=== PATIENT | male | born 1940 | race Caucasian/White ===

== ENCOUNTER 2017-07-19 06:52 | Outpatient (RCR) | payer SELFPAY | END 2017-08-17 23:59 | LOC: PR 06:52 | DX: Z00.00 Encounter for general adult medical examination without abnormal findings (principal) ==

== ENCOUNTER 2017-09-07 17:20 | Inpatient (IN) | payer MEDICARE, OTHER, SELFPAY ==
[2017-09-07] VITALS (13 sets, daily range): BP systolic 106–156; BP diastolic 64–84; PULSE 97–123; RESP 12–36; TEMP 36.5–37.1; O2SAT 71–98; BMI 19.6; BMI 19.7
--- NOTE | 2017-09-07 17:35 | EKG12_ITS ---
Test Reason : Blood Pressure : / mmHG Vent. Rate : 114 BPM Atrial Rate : 114 BPM P-R Int : 132 ms QRS Dur : 076 ms QT Int : 306 ms P-R-T Axes : 087 -51 068 degrees QTc Int : 421 ms Sinus tachycardia Left axis deviation Low voltage QRS (LIMB LEADS) Abnormal ECG Confirmed by TIKA THORNTON, MARY ANN ([id number]), editor index ALEJO CERVANTES ([id number]) on 09/09/2017 1:21:41 PM Referred By: Confirmed By:MARY ANN VILLELA MD
--- NOTE | 2017-09-07 17:50 | RAD_ITS ---
XR Chest 1 View INDICATION: DYSPNEA, SHORTNESS OF BREATH COMPARISON: October 26, 2012 TECHNIQUE: Frontal view of the chest FINDINGS: Lungs are hyperinflated with coarsened interstitial markings, compatible with COPD. No evidence of focal airspace consolidation or pleural effusion. Heart size is normal. RAD/Chest 1 View (Portable) IMPRESSION: COPD with air-trapping. No new infiltrate. at 1819 Reported and signed by: Bonnie Vincent MD Electronically Signed: Bonnie Vincent MD at 17:18 EST Tel , Service support ,
[2017-09-07 17:54] LABS: Absolute Lymphocyte Count 1.57 X10^3/ul (0.83-4.51); Absolute Neutrophil Count 10.5 X10^3/uL (2.0-7.7); Basophil# 0.04 X10^3/uL; Basophil% 0.3 % (0-1); Eosinophil# 0.15 X10^3/uL; Eosinophils% 1.1 % (0-5); Hematocrit 44.9 % (40-54); Hemoglobin 14.4 g/dl (13.0-16.5); Lymphocyte # 1.57 X10^3/ul (4.0); Lymphocyte % 11.9 % (19-41); Mean Corp Hgb Conc 32.1 g/gl (32-36); Mean Corpuscular Hgb 29.4 pg (27.0-32.0); Mean Corpuscular Volume 91.6 fL (80-94); Mean Platelet Vol. 9.2 fl (6.2-12.0); Monocyte# 0.86 X10^3/uL; Monocyte% 6.5 % (0-10); Neutrophil # 10.52 X10^3/uL (2.7-7.7); Neutrophil % 79.8 % (47-70); Platelet Count 193 K/mm3 (150-450); RBC Distribution Width CV 13.3 % (11.6-14.6); White Blood Count 13.2 K/mm3 (4.4-11.0)
[2017-09-07] MEDS: Albuterol 2.5 MG/3 ML VIAL.NEB. INHALATION ×3 (17:54)
[2017-09-07] MEDS: Ipratropium/Albuterol Sulfate 3 ML AMPUL.NEB INHALATION ×3 (17:54→23:15)
[2017-09-07 17:57] LABS: POSITIVE COUNT NO; POSITIVE DIFFERENTIAL NO; POSITIVE MORPHOLOGY NO
[2017-09-07] MEDS: MethylPREDNISolone 125 MG/2 ML Vial IV (18:00)
[2017-09-07 18:09] LABS: Anion Gap 8 (5-15); BUN 15 mg/dL (7-18); BUN/Creat Ratio 13.6 RATIO (10-20); Calcium,Total 8.9 mg/dL (8.5-10.1); Chloride 96 mmol/L (98-107); EST Glomerular Filtration Rate 69 mL/min (>60); Est Glom Filt Rate - Afr Amer 83 mL/min (>60); Estimated Creatinine Clearance 48.83 ml/min; Glucose 134 mg/dL (74-106); Sodium Level 135 mmol/L (136-145)
[2017-09-07 18:28] LABS: BNP,B-Type NATRIURETIC PEPTIDE 42.8 pg/mL (0-100)
--- NOTE | 2017-09-07 18:46 | ED.DCSUM_ITS ---
- ER Visit Summary Date of Service: 09/07/17 Chief Complaint: [Shortness of breath] History of Present Illness: The patient is a 77 M [presents to the emergency department with complaint of shortness of breath started relatively suddenly today. Patient has been having issues with his breathing over the course of the last several months however. Patient has been on several rounds of antibiotics and steroids as well. Patient has a history of COPD. Patient normally wears 3-4 L of O2 at home at all times. Patient has had a slight cough that at times is been productive with some yellow white type phlegm. Patient denies any fevers. Patient denies any chest pain. Patient denies recent travel or surgery.] Physical Examination: [HEENT-PERRLA, EOMI. Cranial nerves II through XII grossly intact. TMs clear. Mucous membranes moist. No adenopathy. Cardiovascular-regular rate and rhythm without murmur or ectopy Lungs-breath sounds bilaterally. Expiratory wheezes bilaterally. There is tachypnea with conversational dyspnea and some accessory muscle use noted. Abdomen-normoactive bowel sounds, soft, nontender, no rebound or rigidity, no peritoneal signs. Extremities-intact ?4, normal range of motion, normal pulses, atraumatic] Test Results: [EKG obtained showed a sinus tachycardia with a ventricular rate of 114 bpm. CBC with differential showed a white count of 13.2, hemoglobin 14, hematocrit 45, platelets 193. Chemistries were unremarkable. BNP was 43. Troponin was less than 0.02. Chest x-ray showed COPD without evidence of infiltrate.] Emergency Department Course and Treatment: [Patient was given DuoNeb aerosol followed by albuterol aerosols. Patient was started on Solu-Medrol 125 mg IV. Patient was started on Levaquin IV.] Patient's breathing improved after treatments however he continues to wheeze and continues to feel dyspneic at rest. Treatment Plan: [Admit for IV steroids, pulmonary toiletry, antibiotics] Disposition: [Admit] Impression: [Acute COPD exacerbation] This note was generated with [employer] dictation software. It may contain incorrect words, spelling, and punctuation that were not noted in review of the chart prior to signing ED Disposition - Plan for ED Patient: Chief Complaint: Shortness of Breath Referrals: Torrey Davis MD [Primary Care Provider] -
--- NOTE | 2017-09-07 19:20 | HP.PCM_ITS ---
Problem List (1) COPD exacerbation Status: Acute (2) BPH (benign prostatic hyperplasia) Status: Chronic Qualifiers: Lower urinary tract symptom detail: unspecified (3) Acute and chronic respiratory failure Status: Acute Qualifiers: Respiratory failure complication: hypoxia Qualified Code(s): J96.21 - Acute and chronic respiratory failure with hypoxia History of Present Illness Date of Admission: 09/07/17 Chief Complaint: Shortness of breath on going for months, worse today The patient is a 77 year old M with PMHx of chronic respiratory failure secondary to COPD, on 2.5-3.5 Litres of oxygen at home, anxiety disorder, BPH, who comes in with complaints of shortness of breath ongoing since June 2017. 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 He has been treated for antibiotics twice in the past 2 months. Last completed antibiotics 2 weeks ago. Patient woke up today feeling very short of breath, he went to the coach professional [employer] in the [place] in [place], and was evaluated and told to go to the ED. He complains of shortness of breath with exertion but denied any chest pain or dizziness or palpitation. He admits to runny nose and sore throat but denied any sick contacts. He had his flu shot this year. In the ED, his temperature 98.7, heart rate was 121, blood pressure 142/79, respiratory rate was 28, patient was saturating 71% on 4 L of oxygen. His labs showed WBC count of 13.2, Hb 14.4, platelets 193, sodium 135, potassium 4.0, chloride 96, bicarbonate 31, BUN 15, creatinine 1.1 troponin ?1 was negative. EKG shows normal sinus rhythm no acute ST-T changes. Past Medical History Past Medical History (Chronic Problems): Chronic Problems BPH (benign prostatic hyperplasia) (Chronic) Spontaneous pneumothorax (Chronic) COLD (chronic obstructive lung disease) (Chronic) Allergies atorvastatin [From Lipitor] Allergy (Verified 09/07/17 17:34) Other indomethacin [From Indocin] Allergy (Verified 09/07/17 17:34) Other primidone Allergy (Verified 09/07/17 17:34) Other sertraline [From Zoloft] Allergy (Verified 09/07/17 17:34) Other Home Medications: Ambulatory Orders Medication Instructions Recorded Albuterol Aerosols [Ventolin 2.5 mg INHALATION Q6H PRN PRN 09/07/17 Aerosols] Albuterol Inhaler [Ventolin Hfa 1 - 2 puff INHALATION Q6H PRN PRN 09/07/17 (SP)] Budesonide/Formoterol 160/4.5 2 puff INHALATION BID 09/07/17 [Symbicort 160/4.5 Mcg Inhaler (SP)] Cetirizine HCl [Allergy Relief] 10 mg PO DAILY 09/07/17 Ergocalciferol [Vitamin D] 50,000 unit PO QMONTH 09/07/17 Folic Acid 1 mg PO DAILY@0800 09/07/17 Furosemide [Lasix] 20 mg PO DAILY 09/07/17 Hydrocortisone 2.5% Crm [Hytone] 1 applic TOPICAL TID PRN PRN 09/07/17 Lorazepam [Ativan] 0.5 mg PO DAILY PRN PRN 09/07/17 Lycopene 10 mg PO DAILY 09/07/17 Metronidazole 0.75% [Metrogel] 1 applic TOPICAL BID 09/07/17 Potassium Chloride 10 meq PO DAILY 09/07/17 Selenium 200 mcg PO DAILY 09/07/17 Tamsulosin HCl [Flomax] 0.4 mg PO DAILY 09/07/17 Tiotropium Jackson [Spiriva 18 MCG] 1 puff INHALATION DAILY 09/07/17 Surgical History: adenoidectomy, appendectomy, tonsillectomy Psychiatric History: Anxiety Lives: Alone Smoking Status: Former smoker Tobacco Use: Non-smoker Alcohol: None Drugs: None - *Family History Maternal History Items: Heart Disease Paternal History Items: Heart Disease Review of Systems Constitutional: Reports: Chills, Weakness. Denies: Fever, Malaise, Weight Change Eyes: Denies: Blurred vision, Cataracts, Conjunctivae Inflammation, Pain, Redness HEENT: Denies: Difficulty Hearing, Difficulty Swallowing, Head Aches, Hearing Changes, Sinus Congestion, Sinus Drainage Cardiovascular: Denies: Chest Pain, Claudication, Edema, Heaviness, Light Headedness, Orthopnea, Palpitations, Paroxysmal Noc. Dyspnea Respiratory: Reports: Shortness of Breath, Shortness of breath at rest, Shortness of breath upon exertion. Denies: Cough, Sputum production Gastrointestinal: Denies: Abdominal Pain, Constipation, Hematemesis, Nausea, Vomiting Genitourinary: Denies: Dysuria, Frequency, Incontinence Musculoskeletal: Denies: Joint Pain, Joint stiffness, Joint swelling, Joint Tenderness Skin: Denies: Dryness, Jaundice, Rash, Wounds Neurological: Denies: Balance problems, Difficulty swallowing, Focal weakness, Numbness, Tingling Psychiatric: Denies: Anxiety, Depression, Homicidal Ideations, Suicidal Ideations Hematologic/ Lymphatic: Denies: Easy Bruising, Easy Bleeding VTE Information - Inpt Only VTE Present on Admission: No VTE Pharm Prophylaxis ordered?: Yes Patient Problems: Active and Suspected Problems COPD exacerbation (Acute) Acute and chronic respiratory failure (Acute) - Physical Exam General: Alert, Oriented x3, Cooperative, - - comfortable with 4L oxygen HEENT: Atraumatic, PERRLA, EOMI, Normocephalic Oral: Moist Mucosa Neck: Supple Lungs: Normal air movement, Diminished - in all lung anguiano, distant heart sounds., Wheezes Cardiovascular: Regular rate, Regular Rhythm, Normal S1, Normal S2, No murmurs Abdomen: Bowel Sounds Present, Soft, Non Tender, Non-Distended, No Hepato- splenomegaly Extremities: No edema Skin: No rashes Musculoskeletal: No Tenderness to Palpation of Joints or Extremities Neurological: Cranial nerves II-XII grossly intact, Neuro grossly intact Psych/Mental Status: Normal Affect, Appropriate Vital Signs Temp Pulse Resp BP Pulse Ox 98.7 F 97 24 H 142/79 H 94 09/07/17 17:30 09/07/17 17:54 09/07/17 17:54 09/07/17 17:34 09/07/17 17:34 Oxygen Flow Rate 4 Oxygen Delivery Method Nasal Cannula Weight: 63.4 kg Body Mass Index (BMI) 20.0 Laboratory Tests Past 24 Hrs 09/07/17 09/07/17 09/07/17 17:35 17:35 17:35 WBC 13.2 H RBC 4.90 Hgb 14.4 Hct 44.9 MCV 91.6 MCH 29.4 MCHC 32.1 RDW 13.3 RDW Differential 44.0 H Plt Count 193 MPV 9.2 Immature Gran % (Auto) 0.400 Neut % (Auto) 79.8 H Lymph % (Auto) 11.9 L [place] % (Auto) 6.5 Eos % (Auto) 1.1 Baso % (Auto) 0.3 Absolute Neuts (auto) 10.5 H Absolute Lymphs (auto) 1.57 Total Counted Not Reportable Sodium 135 L Potassium 4.0 Chloride 96 L Carbon Dioxide 31.0 Anion Gap 8 BUN 15 Creatinine 1.10 Estim Creat Clear Calc 48.83 Est GFR (MDRD) Af Amer 83 Est GFR (MDRD) Non-Af 69 BUN/Creatinine Ratio 13.6 Glucose 134 H Calcium 8.9 Troponin I < 0.02 B-Natriuretic Peptide 42.8 Assessment/Plan Active and Suspected Problems COPD exacerbation (Acute) Acute and chronic respiratory failure (Acute) 77 year old M with PMHx of chronic respiratory failure secondary to COPD, on 2.5 -3.5 Litres of oxygen at home, anxiety disorder, BPH, who comes in with complaints of shortness of breath ongoing since June 2017. Patient is an [employer] and [facility] [place] 1. Acute on chronic respiratory failure secondary to COPD exacerbation, patient is usually on 2.5-3.5 L of oxygen, vitals show tachycardia, x-ray showed no acute infiltrate. Plan: Admit to [facility], continue oxygen therapy, albuterol, ipratropium breathing treatments, IV Solu-Medrol, continue to wean off oxygen, IV Levaquin, labs in am. Respiratory panel and influenza screen stat. 2. Acute COPD exacerbation patient with chronic COPD and respiratory failure, management as above in #1 3. Leucocytosis, likely reactive, would need to repeat it in a.m. 4. BPH, on Flomax 5. Chronic anxiety, continue on home Ativan as needed 6. Chronic hyponatremia, follow-up on labs in am 7. DVT PPX with Lovenox SC Code Visit Inpatient E&M: 96382 Init Hosp L3
--- NOTE | 2017-09-07 19:43 | NURSING ---
[facility]ED [facility] TO [facility] WAITING FOR THE COORDINATOR TO CALL BACK
--- NOTE | 2017-09-07 19:49 | NURSING ---
[facility] CALLED BACK VER[facility] PATIENT [facility] [employer] MEDICARE AND IS ABLE TO STAY AT [facility]
--- NOTE | 2017-09-07 20:28 | NURSING ---
CPS called for breathing tmt at pt request.
--- NOTE | 2017-09-07 21:08 | NURSING ---
Admission process delayed at this time d/t pt's breathing issues. Dr. Medina was called since pt triggered a positive sepsis screen. She stated pt is not septic but his vital signs are reflective of his COPD. CPS currently in pt's room administering breathing tmt.
[2017-09-07 21:41] LABS: Allen Test POS; Base Excess 7 mmol/L (-2 to +2); Blood Gas Specimen Type ART; O2 Delivery Device Nasal Can; PO2 85 mmHG (75-100); SITE L Radial; SO2 94 % (95-99); Time Given 2124; Total Carbon Dioxide 36 mmol/L; pCO2 72.2 mmHg (35-45); pH 7.28 (7.35-7.45)
[2017-09-07] MEDS: 0.9% Normal Saline 1,000 ML 75 ML IV (21:50)
--- NOTE | 2017-09-07 21:50 | NURSING ---
Per Francy, Nursing Director Of Digital Marketing, she spoke with Dr. Medina and after some discussion it was determined that pt will remain on MS3 on bipap on telemetry and will not be transferred to PCU. Order to transfer was stopped.
[2017-09-07] MEDS: guaiFENesin 1,200 MG Tablet 1200 MG PO (22:57)
--- NOTE | 2017-09-07 23:08 | NURSING ---
Pt not tolerating Bi-pap. Feels claustrophobic and hot under the mask and started complaining of chest pain. Taken off bi-pap and replaced with 02 via NC at 4L. maintaining 02 sats at 96% and RR 26-28RPM. called respiratory and an EKG performed. charge nurse and respiratory have discussed with Dr Medina who will come and review patient. Order for ativan obtained and will be given once acknowledged. breathing treatment in progress at time of report and awaiting Dr Medina review.
[2017-09-07] MEDS: LORazepam 2 MG/ML Syringe 1 MG IV (23:20)
[2017-09-08] VITALS (18 sets, daily range): BP systolic 98–121; BP diastolic 67–75; PULSE 75–105; RESP 18–36; TEMP 36.7–37; O2SAT 95–100
--- NOTE | 2017-09-08 00:10 | CPS ---
Pt unable to tolerate bipap, pt very anxious and feels claustrophobic. Pt on 4L NC.
[2017-09-08] MEDS: Ipratropium/Albuterol Sulfate 3 ML AMPUL.NEB INHALATION ×6 (02:32→22:56)
--- NOTE | 2017-09-08 02:32 | PCM.PN.BLA ---
Progress Note Event note: Called earlier to see patient who was feeling very SOB and working very hard to breath. He was saturating in the low 90s. Patient appeared very anxious, says he takes 0.5mg Ativan at home and has taken 4 doses already. ABG stat showed pH 7.28, pCO2 72.2, PO2 94%, patient was started on Bipap 12/5, but he complained of feeling claustrophobic and became more anxious. Physical exam showed generalised wheezes. He was given 1mg IV Ativan and put on 4L nasal canula oxygen and kept on continuous pulse oximetry. Patient was reassured. Repeated visits showed stable oxygenation with SPO2 in 98-100%. Will continue on breathing treatments, IV steroids. Had a discussion with the patient with reference to advanced directives, he says his spouse is his HCPOA, I exaplained the different types of code status and patient did not wish to be intubated. Code status made DNRCCA/DNI. Total time spent managing this patient tonight 1 hour 5 mins with the most part spent at the bedside.
--- NOTE | 2017-09-08 02:44 | PN_ITS ---
Progress Note Event note: Called earlier to see patient who was feeling very SOB and working very hard to breath. He was saturating in the low 90s. Patient appeared very anxious, says he takes 0.5mg Ativan at home and has taken 4 doses already. ABG stat showed pH 7.28, pCO2 72.2, PO2 94%, patient was started on Bipap 12/5, but he complained of feeling claustrophobic and became more anxious. Physical exam showed generalised wheezes. He was given 1mg IV Ativan and put on 4L nasal canula oxygen and kept on continuous pulse oximetry. Patient was reassured. Repeated visits showed stable oxygenation with SPO2 in 98 -100%. Will continue on breathing treatments, IV steroids. Had a discussion with the patient with reference to advanced directives, he says his spouse is his HCPOA, I exaplained the different types of code status and patient did not wish to be intubated. Code status made DNRCCA/DNI. Total time spent managing this patient tonight 1 hour 5 mins with the most part spent at the bedside.
[2017-09-08] MEDS: 0.9% NaCl Peripheral Flush Adult/Peds IV ×2 (06:05→14:46)
[2017-09-08] MEDS: Enoxaparin 40 MG/0.4 ML Syringe SC (06:06)
[2017-09-08 06:35] LABS: Anion Gap 8 (5-15); BUN 17 mg/dL (7-18); BUN/Creat Ratio 15.5 RATIO (10-20); Calcium,Total 8.4 mg/dL (8.5-10.1); Chloride 96 mmol/L (98-107); EST Glomerular Filtration Rate 69 mL/min (>60); Est Glom Filt Rate - Afr Amer 83 mL/min (>60); Estimated Creatinine Clearance 48.02 ml/min; Glucose 172 mg/dL (74-106); Potassium 4.5 mmol/L (3.5-5.1); Sodium Level 132 mmol/L (136-145)
[2017-09-08 06:39] LABS: Absolute Lymphocyte Count 0.29 X10^3/ul (0.83-4.51); Absolute Neutrophil Count 9.4 X10^3/uL (2.0-7.7); Hematocrit 38.9 % (40-54); Hemoglobin 12.4 g/dl (13.0-16.5); Lymphocyte # 0.29 X10^3/ul (4.0); Mean Corp Hgb Conc 31.9 g/gl (32-36); Mean Corpuscular Hgb 28.8 pg (27.0-32.0); Mean Corpuscular Volume 90.3 fL (80-94); Mean Platelet Vol. 9.2 fl (6.2-12.0); Monocyte# 0.07 X10^3/uL; Monocyte% 0.7 % (0-10); Neutrophil # 9.35 X10^3/uL (2.7-7.7); Neutrophil % 96.2 % (47-70); Platelet Count 128 K/mm3 (150-450); RBC Distribution Width CV 13.2 % (11.6-14.6); Red Blood Count 4.31 M/mm3 (4.6-6.2); White Blood Count 9.7 K/mm3 (4.4-11.0)
[2017-09-08 06:40] LABS: Differential Indicated SCAN CRITERIA MET; POSITIVE COUNT NO; POSITIVE DIFFERENTIAL YES; POSITIVE MORPHOLOGY NO
[2017-09-08 06:55] LABS: Differential Comment SCANNED
[2017-09-08] MEDS: 0.9% Normal Saline 1,000 ML 75 ML IV ×2 (08:17→21:30)
[2017-09-08] MEDS: LORazepam 0.5 MG Tablet PO ×3 (08:17→21:30)
[2017-09-08] MEDS: Folic Acid 1 MG Tablet PO (08:17)
[2017-09-08] MEDS: guaiFENesin 1,200 MG Tablet 1200 MG PO ×2 (09:50→21:26)
[2017-09-08] MEDS: Furosemide 20 MG Tablet PO (09:50)
[2017-09-08] MEDS: Loratadine 10 MG Tablet PO (09:50)
--- NOTE | 2017-09-08 11:19 | CASEMGMT ---
RN MAYI assessment complete. See attached link for full assessment. LACE Strata 3. Diagnosis: COPD Exacerbation. Transition Planning: Patient reports he feels he needs increase in services at home. Per [facility] SW, Wilson, they are unable to provide. Patient thinks he may need to go to a SNF for rehab. AMITA SEE suggested PVT duty nursing with skilled home care and patient reports he cannot afford it. RN CM notified SW of possible need for placement. AMITA SEE will continue to follow for appropriate transition planning and care coordination. Disposition Plan: TBD
--- NOTE | 2017-09-08 11:41 | CASEMGMT ---
RN CM met with patient to complete RN CM assessment. During assessment, patient asked that RN CM contact his ministers to request a visit. Patient requested this RN CM call Swetha Hull and Wilson Burns. RN CM called both and left messages with return calls re: patient request. RN CM also paged [facility] to request a visit. ULICES CurryN, RN-BC, CCM
--- NOTE | 2017-09-08 11:54 | CASEMGMT ---
During RN CM assessment, patient noted he is worried about going home and being alone after discharge. He does [facility] and requested I call to see if the [facility] would provide around the clock care. Patient states he cannot afford private duty on his own. RN MAYI called the [facility] and spoke with social media strategist, Wilson. Per Wilson, patient receives 12 hours of aide services at home, and they would not be able to provide 24 hour care. RN MAYI inquired about service connection, and patient is not service connected so would not be eligible to go to SNF under [facility] benefit. AMITA SEE will update patient and notify social work. Linda Cody BSN, RN-BC, CCM
--- NOTE | 2017-09-08 14:40 | PN_ITS ---
Patient Problems: Active and Suspected Problems COPD exacerbation (Acute) Acute and chronic respiratory failure (Acute) Subjective: CC: Shortness of breath and severe anxiety he reports improved breathing, he has significant anxiety and he is adamant about getting his Ativan scheduled. he reports no chest pain, fever or chills. Vitals/I&O's: Vital Signs Temp Pulse Resp BP Pulse Ox 98.2 F 75 24 H 121/75 H 97 09/08/17 14:05 09/08/17 14:05 09/08/17 14:05 09/08/17 14:05 09/08/17 14:05 Oxygen Flow Rate 4.5 Oxygen Delivery Method Nasal Cannula Weight: 62.3 kg Body Mass Index (BMI) 19.6 Intake and Output for Last 24 Hours 09/06/17 09/07/17 09/08/17 23:59 23:59 23:59 Intake Total 2532 / 2532 Output Total 450 / 450 Balance 2081 / 2081 General: Alert, Oriented x3 Oral: Moist Mucosa Neck: Supple, No JVD Cardiovascular: - Abdomen: Bowel Sounds Present, Soft, Non Tender, Non-Distended Extremities: No edema Neurological: Cranial nerves II-XII grossly intact, Neuro grossly intact, Motor Exam 5/5 strength throughout Microbiology Past 72 Hours 09/07/17 21:00 Mucosa - Nasopharyngeal Respiratory Panel (PCR) - Final 09/07/17 21:00 Mucosa - Nasopharyngeal Influenza Types A,B Direct FA (BRAN) - Final Laboratory Results 09/07/17 21:31: Specimen Type ART, Sample Site L Radial, pH 7.28 L, Bicarbonate Actual 34.0 H, POC Total CO2 36, Base Excess 7 H, O2 Saturation 94 L, ABG pCO2 72.2 H*, ABG pO2 85, Farzad Test POS, O2 Delivery Device Nasal Can, Liter Flow 4.0, Blood Gas Notified Whom [facility] , Blood Gas Notified Time 212309/08/17 06:04: Sodium 132 L, Potassium 4.5, Chloride 96 L, Carbon Dioxide 28.0 , Anion Gap 8, BUN 17, Creatinine 1.10, Estim Creat Clear Calc 48.02, Est GFR ( MDRD) Af Amer 83, Est GFR (MDRD) Non-Af 69, BUN/Creatinine Ratio 15.5, Glucose 172 H, Calcium 8.4 L 09/08/17 06:04: WBC 9.7, RBC 4.31 L, Hgb 12.4 L, Hct 38.9 L, MCV 90.3, MCH 28.8 , MCHC 31.9 L, RDW 13.2, RDW Differential 44.0 H, Plt Count 128 L, MPV 9.2, Immature Gran % (Auto) 0.100, Neut % (Auto) 96.2 H, Lymph % (Auto) 3.0 L, [place] % (Auto) 0.7, Eos % (Auto) 0.0, Baso % (Auto) 0.0, Absolute Neuts (auto) 9.4 H, Absolute Lymphs (auto) 0.29 L, Total Counted Not Reportable, Differential Comment SCANNED Current Medications Acetaminophen (Tylenol) 650 mg PO Q6H PRN PRN PRN Reason: Mild Pain (1-3)/Temp > 100.7 F Albuterol Sulfate (Ventolin Aerosols) 2.5 mg INHALATION Q2H PRN PRN PRN Reason: SHORTNESS OF BREATH Albuterol/Ipratropium (Duoneb) 3 ml INHALATION Q4H.RT [facility] Last Admin: 09/08/17 10:55 Dose: 3 ml Bisacodyl (Dulcolax) 5 mg PO DAILY PRN PRN PRN Reason: Constipation Enoxaparin Sodium (Lovenox) 40 mg SC DAILY@0600 [facility] Last Admin: 09/08/17 06:06 Dose: 40 mg Ergocalciferol (Vitamin D) 50,000 unit PO QMONTH [facility] Last Admin: 09/08/17 12:18 Dose: 50,000 unit Folic Acid (Folic Acid) 1 mg PO DAILY@0800 [facility] Last Admin: 09/08/17 08:17 Dose: 1 mg Furosemide (Lasix) 20 mg PO DAILY [facility] Last Admin: 09/08/17 09:50 Dose: 20 mg Guaifenesin (Mucinex) 1,200 mg PO BID [facility] Last Admin: 09/08/17 09:50 Dose: 1,200 mg Sodium Chloride () 1,000 mls @ 75 mls/hr IV .[id number] [facility] Last Admin: 09/08/17 08:17 Dose: 75 mls/hr Levofloxacin (Levaquin) 750 mg in 150 mls @ 100 mls/hr IV Q48 [facility] Loratadine (Claritin) 10 mg PO DAILY [facility] Last Admin: 09/08/17 09:50 Dose: 10 mg Lorazepam (Ativan) 0.5 mg PO TID PRN PRN PRN Reason: ANXIETY Magnesium Hydroxide (Milk Of Magnesia) 30 ml PO DAILY PRN PRN PRN Reason: Constipation Methylprednisolone (Solu-Medrol) 40 mg IV Q8 [facility] Last Admin: 09/08/17 06:06 Dose: 40 mg Nutritional Formula (Lactose Free) (Ensure Enlive) 120 ml PO 4X/DAY [facility] Last Admin: 09/08/17 10:27 Dose: 120 ml Ondansetron HCl (Zofran) 4 mg IV Q8H PRN PRN PRN Reason: Nausea Potassium Chloride (K-Dur) 10 meq PO DAILY [facility] Last Admin: 09/08/17 09:50 Dose: 10 meq Psyllium Hydrophilic Mucilloid (Metamucil) 1 packet PO DAILY PRN PRN PRN Reason: CONSTIPATION Sodium Chloride () 5 - 30 ml IV UD PRN PRN Reason: SALINE FLUSH Last Admin: 09/08/17 06:05 Dose: 10 ml Tamsulosin HCl (Flomax) 0.4 mg PO DAILY@1730 [facility] Assessment/Plan Active and Suspected Problems COPD exacerbation (Acute) Acute and chronic respiratory failure (Acute) 1. Acute on chronic respiratory failure secondary to COPD exacerbation; continue supplemental oxygen , wean as tolerated. 2. Acute COPD exacerbation with bronchitis; he is on bronchodilators , antibiotics and steroids. 3. Anxiety; we will continue on as needed Ativan 4. Chronic hyponatremia, follow-up on labs in am 5. leukocytosis; resolved. 6. Hyponatremia; continue with 0.9 normal saline and repeat BMP in a.m. 7. DVT prophylaxis with Lovenox. Code Visit Inpatient E&M: 64225 Subs Hosp L2
[2017-09-08] MEDS: Tamsulosin HCl 0.4 MG Capsule PO (18:09)
[2017-09-09] VITALS (14 sets, daily range): BP systolic 97–142; BP diastolic 60–73; PULSE 61–103; RESP 18–26; TEMP 36.7–37; O2SAT 94–97
[2017-09-09] MEDS: Ipratropium/Albuterol Sulfate 3 ML AMPUL.NEB INHALATION ×6 (03:07→22:46)
[2017-09-09] MEDS: Enoxaparin 40 MG/0.4 ML Syringe SC (06:18)
[2017-09-09] MEDS: 0.9% NaCl Peripheral Flush Adult/Peds IV ×2 (06:19→13:40)
[2017-09-09] MEDS: LORazepam 0.5 MG Tablet PO ×3 (06:19→22:02)
--- NOTE | 2017-09-09 08:03 | NURSING ---
Tele alarm going off, HR 140s, sats low 80s on oxygen. Found patient sitting on bsc, pt very anxious and sob. Nurse rubbed patient's back per request, pt continues to be anxious. Nurse obtained ativan per patient request, and stayed in room approximately 30 minutes until patient was able to calm himself down. Pt assisted back to bed.
[2017-09-09] MEDS: Loratadine 10 MG Tablet PO (08:48)
[2017-09-09] MEDS: Folic Acid 1 MG Tablet PO (08:48)
[2017-09-09] MEDS: Furosemide 20 MG Tablet PO (08:48)
[2017-09-09] MEDS: guaiFENesin 1,200 MG Tablet 1200 MG PO ×2 (08:48→22:02)
--- NOTE | 2017-09-09 09:35 | CASEMGMT ---
Social Work Note Reviewed pt's chart and per PT/OT evaluations they are recommending placement and pt is requesting. Face to face with pt who confirms that he does not feel his care can be managed at home at this time. Would like referrals made to TCU and [facility]. Pt inquires about Medicaid. States that he makes $1500/month and that his makes an additional $1000. Inform that we can always apply and submit, and pt requests that SW return to assist with application. Placed call to [facility] to inquire about bed availability and will await a return phone call. SW to continue to follow and assist with discharge planning. Denisa Ferrari, AUTO GLASS TECHNICIAN, INFORMATION TECHNOLOGY TEACHER
--- NOTE | 2017-09-09 09:51 | PCA ---
set pt up for care pt would like to wait until later today
[2017-09-09] MEDS: NYSTATIN 500,000 UNIT/5 ML UDC 500000 UNIT PO ×2 (10:22→13:40)
[2017-09-09] MEDS: 0.9% Normal Saline 1,000 ML 75 ML IV (10:23)
--- NOTE | 2017-09-09 10:59 | CASEMGMT ---
Social Work Note Call from [facility] confirming that she would have a bed available. Pre-cert initiated. Face to face with the pt and update that TCU has a bed and has submitted pre-cert. RT in to begin breathing treatment and pt requests that SW return afterwards to assist with completion of Medicaid application. Will return as time allows. SW to continue to follow and assist with discharge planning. Plan: TCU pending pre-cert. Denisa Ferrari, LETTUCE CUTTER, BLOW PIT OPERATOR
--- NOTE | 2017-09-09 15:57 | PCM.PN.HOSP ---
Patient Problems: Active and Suspected Problems COPD exacerbation (Acute) Acute and chronic respiratory failure (Acute) Subjective: CC: Shortness of breath and severe anxiety This is a 77 -year-old male with history of COPD and chronic respiratory failure on home 02 who presented with progressive shortness of breath, he has acute exacerbation of COPD. He is improving with IV steroids and bronchodilator therapy. Significant anxiety and is receiving Ativan. Vitals/I&O's: Vital Signs Temp Pulse Resp BP Pulse Ox 98.6 F 84 20 H 97/60 97 09/09/17 13:33 09/09/17 14:57 09/09/17 14:57 09/09/17 13:33 09/09/17 13:33 Oxygen Flow Rate 4 Oxygen Delivery Method Nasal Cannula Weight: 62.3 kg Body Mass Index (BMI) 19.6 Intake and Output for Last 24 Hours 09/07/17 09/08/17 09/09/17 23:59 23:59 23:59 Intake Total 3436 / 3436 2020 Output Total 725 / 725 1800 / 1800 Balance 2711 / 2711 221 / 221 General: Alert, Oriented x3 Neck: Supple, No JVD Lungs: Clear to auscultation Cardiovascular: Regular rate, Normal S1, No murmurs Abdomen: Bowel Sounds Present, Soft, Non Tender Neurological: Cranial nerves II-XII grossly intact, Motor Exam 5/5 strength throughout Psych/Mental Status: Normal Affect Microbiology Past 72 Hours 09/07/17 21:00 Mucosa - Nasopharyngeal Respiratory Panel (PCR) - Final 09/07/17 21:00 Mucosa - Nasopharyngeal Influenza Types A,B Direct FA (BRAN) - Final Current Medications Acetaminophen (Tylenol) 650 mg PO Q6H PRN PRN PRN Reason: Mild Pain (1-3)/Temp > 100.7 F Albuterol Sulfate (Ventolin Aerosols) 2.5 mg INHALATION Q2H PRN PRN PRN Reason: SHORTNESS OF BREATH Albuterol/Ipratropium (Duoneb) 3 ml INHALATION Q4H.RT [facility] Last Admin: 09/09/17 14:57 Dose: 3 ml Bisacodyl (Dulcolax) 5 mg PO DAILY PRN PRN PRN Reason: Constipation Enoxaparin Sodium (Lovenox) 40 mg SC DAILY@0600 [facility] Last Admin: 09/09/17 06:18 Dose: 40 mg Ergocalciferol (Vitamin D) 50,000 unit PO QMONTH [facility] Last Admin: 09/08/17 12:18 Dose: 50,000 unit Folic Acid (Folic Acid) 1 mg PO DAILY@0800 [facility] Last Admin: 09/09/17 08:48 Dose: 1 mg Furosemide (Lasix) 20 mg PO DAILY [facility] Last Admin: 09/09/17 08:48 Dose: 20 mg Guaifenesin (Mucinex) 1,200 mg PO BID [facility] Last Admin: 09/09/17 08:48 Dose: 1,200 mg Sodium Chloride () 1,000 mls @ 75 mls/hr IV .[id number] [facility] Last Admin: 09/09/17 10:23 Dose: 75 mls/hr Levofloxacin (Levaquin) 750 mg PO Q48@0600 [facility] Loratadine (Claritin) 10 mg PO DAILY [facility] Last Admin: 09/09/17 08:48 Dose: 10 mg Lorazepam (Ativan) 0.5 mg PO TID PRN PRN PRN Reason: ANXIETY Last Admin: 09/09/17 13:40 Dose: 0.5 mg Magnesium Hydroxide (Milk Of Magnesia) 30 ml PO DAILY PRN PRN PRN Reason: Constipation Methylprednisolone (Solu-Medrol) 40 mg IV Q8 [facility] Last Admin: 09/09/17 13:40 Dose: 40 mg Nutritional Formula (Lactose Free) (Ensure Enlive) 120 ml PO 4X/DAY [facility] Last Admin: 09/09/17 13:38 Dose: Not Given Nystatin (Nystatin) 500,000 unit PO 4X/DAY [facility] Last Admin: 09/09/17 13:40 Dose: 500,000 unit Ondansetron HCl (Zofran) 4 mg IV Q8H PRN PRN PRN Reason: Nausea Potassium Chloride (K-Dur) 10 meq PO DAILY [facility] Last Admin: 09/09/17 08:47 Dose: 10 meq Psyllium Hydrophilic Mucilloid (Metamucil) 1 packet PO DAILY PRN PRN PRN Reason: CONSTIPATION Sodium Chloride () 5 - 30 ml IV UD PRN PRN Reason: SALINE FLUSH Last Admin: 09/09/17 13:40 Dose: 10 ml Tamsulosin HCl (Flomax) 0.4 mg PO DAILY@1730 [facility] Last Admin: 09/08/17 18:09 Dose: 0.4 mg Assessment/Plan Active and Suspected Problems COPD exacerbation (Acute) Acute and chronic respiratory failure (Acute) 1. Acute on chronic respiratory failure secondary to COPD exacerbation; continue supplemental oxygen , wean as tolerated. 2. Acute COPD exacerbation with bronchitis; he is on bronchodilators ,antibiotics and IV steroids. 3. Anxiety; we will continue on as needed Ativan 4. Hyponatremia; continue with 0.9 normal saline and repeat BMP today. 5. leukocytosis; resolved. 6.DVT prophylaxis with Lovenox. Code Visit Inpatient E&M: 13975 Subs Hosp L2
--- NOTE | 2017-09-09 16:01 | PN_ITS ---
Patient Problems: Active and Suspected Problems COPD exacerbation (Acute) Acute and chronic respiratory failure (Acute) Subjective: CC: Shortness of breath and severe anxiety This is a 77 -year-old male with history of COPD and chronic respiratory failure on home 02 who presented with progressive shortness of breath, he has acute exacerbation of COPD. He is improving with IV steroids and bronchodilator therapy. Significant anxiety and is receiving Ativan. Vitals/I&O's: Vital Signs Temp Pulse Resp BP Pulse Ox 98.6 F 84 20 H 97/60 97 09/09/17 13:33 09/09/17 14:57 09/09/17 14:57 09/09/17 13:33 09/09/17 13:33 Oxygen Flow Rate 4 Oxygen Delivery Method Nasal Cannula Weight: 62.3 kg Body Mass Index (BMI) 19.6 Intake and Output for Last 24 Hours 09/07/17 09/08/17 09/09/17 23:59 23:59 23:59 Intake Total 3436 / 3436 2020 Output Total 725 / 725 1800 / 1800 Balance 2711 / 2711 221 / 221 General: Alert, Oriented x3 Neck: Supple, No JVD Lungs: Clear to auscultation Cardiovascular: Regular rate, Normal S1, No murmurs Abdomen: Bowel Sounds Present, Soft, Non Tender Neurological: Cranial nerves II-XII grossly intact, Motor Exam 5/5 strength throughout Psych/Mental Status: Normal Affect Microbiology Past 72 Hours 09/07/17 21:00 Mucosa - Nasopharyngeal Respiratory Panel (PCR) - Final 09/07/17 21:00 Mucosa - Nasopharyngeal Influenza Types A,B Direct FA (BRAN) - Final Current Medications Acetaminophen (Tylenol) 650 mg PO Q6H PRN PRN PRN Reason: Mild Pain (1-3)/Temp > 100.7 F Albuterol Sulfate (Ventolin Aerosols) 2.5 mg INHALATION Q2H PRN PRN PRN Reason: SHORTNESS OF BREATH Albuterol/Ipratropium (Duoneb) 3 ml INHALATION Q4H.RT [facility] Last Admin: 09/09/17 14:57 Dose: 3 ml Bisacodyl (Dulcolax) 5 mg PO DAILY PRN PRN PRN Reason: Constipation Enoxaparin Sodium (Lovenox) 40 mg SC DAILY@0600 [facility] Last Admin: 09/09/17 06:18 Dose: 40 mg Ergocalciferol (Vitamin D) 50,000 unit PO QMONTH [facility] Last Admin: 09/08/17 12:18 Dose: 50,000 unit Folic Acid (Folic Acid) 1 mg PO DAILY@0800 [facility] Last Admin: 09/09/17 08:48 Dose: 1 mg Furosemide (Lasix) 20 mg PO DAILY [facility] Last Admin: 09/09/17 08:48 Dose: 20 mg Guaifenesin (Mucinex) 1,200 mg PO BID [facility] Last Admin: 09/09/17 08:48 Dose: 1,200 mg Sodium Chloride () 1,000 mls @ 75 mls/hr IV .[id number] [facility] Last Admin: 09/09/17 10:23 Dose: 75 mls/hr Levofloxacin (Levaquin) 750 mg PO Q48@0600 [facility] Loratadine (Claritin) 10 mg PO DAILY [facility] Last Admin: 09/09/17 08:48 Dose: 10 mg Lorazepam (Ativan) 0.5 mg PO TID PRN PRN PRN Reason: ANXIETY Last Admin: 09/09/17 13:40 Dose: 0.5 mg Magnesium Hydroxide (Milk Of Magnesia) 30 ml PO DAILY PRN PRN PRN Reason: Constipation Methylprednisolone (Solu-Medrol) 40 mg IV Q8 [facility] Last Admin: 09/09/17 13:40 Dose: 40 mg Nutritional Formula (Lactose Free) (Ensure Enlive) 120 ml PO 4X/DAY [facility] Last Admin: 09/09/17 13:38 Dose: Not Given Nystatin (Nystatin) 500,000 unit PO 4X/DAY [facility] Last Admin: 09/09/17 13:40 Dose: 500,000 unit Ondansetron HCl (Zofran) 4 mg IV Q8H PRN PRN PRN Reason: Nausea Potassium Chloride (K-Dur) 10 meq PO DAILY [facility] Last Admin: 09/09/17 08:47 Dose: 10 meq Psyllium Hydrophilic Mucilloid (Metamucil) 1 packet PO DAILY PRN PRN PRN Reason: CONSTIPATION Sodium Chloride () 5 - 30 ml IV UD PRN PRN Reason: SALINE FLUSH Last Admin: 09/09/17 13:40 Dose: 10 ml Tamsulosin HCl (Flomax) 0.4 mg PO DAILY@1730 [facility] Last Admin: 09/08/17 18:09 Dose: 0.4 mg Assessment/Plan Active and Suspected Problems COPD exacerbation (Acute) Acute and chronic respiratory failure (Acute) 1. Acute on chronic respiratory failure secondary to COPD exacerbation; continue supplemental oxygen , wean as tolerated. 2. Acute COPD exacerbation with bronchitis; he is on bronchodilators , antibiotics and IV steroids. 3. Anxiety; we will continue on as needed Ativan 4. Hyponatremia; continue with 0.9 normal saline and repeat BMP today. 5. leukocytosis; resolved. 6.DVT prophylaxis with Lovenox. Code Visit Inpatient E&M: 14960 Subs Hosp L2
[2017-09-09] MEDS: Tamsulosin HCl 0.4 MG Capsule PO (16:42)
[2017-09-09 18:10] LABS: Anion Gap 7 (5-15); BUN 21 mg/dL (7-18); BUN/Creat Ratio 22.6 RATIO (10-20); Calcium,Total 8.2 mg/dL (8.5-10.1); Chloride 94 mmol/L (98-107); Creatinine, Serum 0.93 mg/dL (0.70-1.30); EST Glomerular Filtration Rate 83 mL/min (>60); Est Glom Filt Rate - Afr Amer 101 mL/min (>60); Estimated Creatinine Clearance 56.75 ml/min; Glucose 127 mg/dL (74-106); Potassium 4.4 mmol/L (3.5-5.1); Sodium Level 132 mmol/L (136-145)
[2017-09-09] MEDS: Mag Hydrox/Al Hydrox/Simeth 30 ML UDC 15 ML PO (18:10)
[2017-09-10] VITALS (12 sets, daily range): BP systolic 128–173; BP diastolic 78–89; PULSE 85–111; RESP 20–40; TEMP 36.7–37.2; O2SAT 92–99
[2017-09-10] MEDS: 0.9% Normal Saline 1,000 ML 75 ML IV (01:15)
[2017-09-10] MEDS: Ipratropium/Albuterol Sulfate 3 ML AMPUL.NEB INHALATION ×4 (03:14→18:56)
[2017-09-10] MEDS: Enoxaparin 40 MG/0.4 ML Syringe SC (05:12)
[2017-09-10] MEDS: Pantoprazole Sodium 40 MG Tablet PO (06:16)
--- NOTE | 2017-09-10 06:55 | CPS ---
Pt complaining of heartburn/acid reflux at this time. He states that this is why he is so short of breath.
[2017-09-10] MEDS: LORazepam 0.5 MG Tablet PO ×4 (07:05→23:58)
[2017-09-10] MEDS: Furosemide 20 MG Tablet PO (08:00)
[2017-09-10] MEDS: Folic Acid 1 MG Tablet PO (08:00)
[2017-09-10] MEDS: guaiFENesin 1,200 MG Tablet 1200 MG PO ×2 (08:00→21:46)
[2017-09-10] MEDS: Loratadine 10 MG Tablet PO (08:00)
[2017-09-10] MEDS: Albuterol 2.5 MG/3 ML VIAL.NEB. INHALATION ×2 (14:31→23:06)
--- NOTE | 2017-09-10 17:43 | PCM.PROGNOTE ---
Patient Problems: Active and Suspected Problems COPD exacerbation (Acute) Acute and chronic respiratory failure (Acute) Subjective: Patient was seen and examined today, he has not complained of any increased shortness of breath, patient is having anxiety issues but he takes Ativan and this helps. We are awaiting placement in a assisted facility for the patient at the present time. - Physical Exam General: Alert, Oriented x3, Cooperative, No apparent distress HEENT: Atraumatic, PERRLA, EOMI, Normocephalic Oral: Moist Mucosa Neck: Supple, No JVD, Negative Carotid Bruits, No Nuchal Rigidity, Trachea Midline, Thyroid Normal Size and Texture Lungs: Normal air movement, No rhonchi, No rales, Wheezes - Scattered expiratory wheezing is noted Cardiovascular: Regular rate, Regular Rhythm, Normal S1, Normal S2, No murmurs, No Ectopic Activity, PMI Normal, No rub noted, No Gallop Abdomen: Bowel Sounds Present, Soft, Non Tender, Non-Distended, No hernias noted Extremities: No clubbing, No cyanosis, Capillary Refill Less than 3 Seconds, Edema - Generalized lower leg edema is noted Skin: No rashes, No breakdown Musculoskeletal: Cachexia Neurological: Cranial nerves II-XII grossly intact, Neuro grossly intact, Sensory exam intact to light touch and pain, Coordination normal Psych/Mental Status: Normal Affect, Appropriate, Alert and oriented to time, place, person, mood and affect Vital Signs Temp Pulse Resp BP Pulse Ox 98.7 F 99 20 H 140/78 H 97 09/10/17 15:33 09/10/17 15:33 09/10/17 15:33 09/10/17 15:33 09/10/17 15:33 Oxygen Flow Rate 3.5 Oxygen Delivery Method Nasal Cannula Weight: 62.3 kg Body Mass Index (BMI) 19.6 Intake and Output for Last 24 Hours 09/08/17 09/09/17 09/10/17 23:59 23:59 23:59 Intake Total 3436 / 3436 2740 / 2740 2356 / 2356 Output Total 725 / 725 2650 / 2650 1100 / 1100 Balance 2711 / 2711 90 / 90 1256 / 1256 Microbiology Past 72 Hours 09/07/17 21:00 Respiratory Panel (PCR) - Final Mucosa - Nasopharyngeal 09/07/17 21:00 Influenza Types A,B Direct FA (BRAN) - Final Mucosa - Nasopharyngeal Laboratory Tests Past 24 Hrs 09/09/17 17:32 Sodium 132 L Potassium 4.4 Chloride 94 L Carbon Dioxide 31.0 Anion Gap 7 BUN 21 H Creatinine 0.93 Estim Creat Clear Calc 56.75 Est GFR (MDRD) Af Amer 101 Est GFR (MDRD) Non-Af 83 BUN/Creatinine Ratio 22.6 H Glucose 127 H Calcium 8.2 L Assessment/Plan Active and Suspected Problems COPD exacerbation (Acute) Acute and chronic respiratory failure (Acute) #1 acute on chronic combined respiratory failure secondary to COPD exacerbation-continue present treatment #2 acute exacerbation of COPD-I will decrease the patient's aerosol treatments every 6 hours-this may lessen the patient's anxiety symptoms, I will continue to give IV Solu-Medrol, I do not believe the patient needs continued Levaquin, I have stopped this medication today the patient is not coughing any purulent sputum, I believe he has chronic bronchitis #3 anxiety-patient will continue on Ativan, I will increase it to 4 times a day as needed #4 moderate malnutrition-continue supplements #5 generalized debility-continue PT and OT, await assisted home placement Code Visit Inpatient E&M: 72155 Subs Hosp L2
--- NOTE | 2017-09-10 17:53 | PN_ITS ---
Patient Problems: Active and Suspected Problems COPD exacerbation (Acute) Acute and chronic respiratory failure (Acute) Subjective: Patient was seen and examined today, he has not complained of any increased shortness of breath, patient is having anxiety issues but he takes Ativan and this helps. We are awaiting placement in a half-way facility for the patient at the present time. - Physical Exam General: Alert, Oriented x3, Cooperative, No apparent distress HEENT: Atraumatic, PERRLA, EOMI, Normocephalic Oral: Moist Mucosa Neck: Supple, No JVD, Negative Carotid Bruits, No Nuchal Rigidity, Trachea Midline, Thyroid Normal Size and Texture Lungs: Normal air movement, No rhonchi, No rales, Wheezes - Scattered expiratory wheezing is noted Cardiovascular: Regular rate, Regular Rhythm, Normal S1, Normal S2, No murmurs, No Ectopic Activity, PMI Normal, No rub noted, No Gallop Abdomen: Bowel Sounds Present, Soft, Non Tender, Non-Distended, No hernias noted Extremities: No clubbing, No cyanosis, Capillary Refill Less than 3 Seconds, Edema - Generalized lower leg edema is noted Skin: No rashes, No breakdown Musculoskeletal: Cachexia Neurological: Cranial nerves II-XII grossly intact, Neuro grossly intact, Sensory exam intact to light touch and pain, Coordination normal Psych/Mental Status: Normal Affect, Appropriate, Alert and oriented to time, place, person, mood and affect Vital Signs Temp Pulse Resp BP Pulse Ox 98.7 F 99 20 H 140/78 H 97 09/10/17 15:33 09/10/17 15:33 09/10/17 15:33 09/10/17 15:33 09/10/17 15:33 Oxygen Flow Rate 3.5 Oxygen Delivery Method Nasal Cannula Weight: 62.3 kg Body Mass Index (BMI) 19.6 Intake and Output for Last 24 Hours 09/08/17 09/09/17 09/10/17 23:59 23:59 23:59 Intake Total 3436 / 3436 2740 / 2740 2356 / 2356 Output Total 725 / 725 2650 / 2650 1100 / 1100 Balance 2711 / 2711 90 / 90 1256 / 1256 Microbiology Past 72 Hours 09/07/17 21:00 Respiratory Panel (PCR) - Final Mucosa - Nasopharyngeal 09/07/17 21:00 Influenza Types A,B Direct FA (BRAN) - Final Mucosa - Nasopharyngeal Laboratory Tests Past 24 Hrs 09/09/17 17:32 Sodium 132 L Potassium 4.4 Chloride 94 L Carbon Dioxide 31.0 Anion Gap 7 BUN 21 H Creatinine 0.93 Estim Creat Clear Calc 56.75 Est GFR (MDRD) Af Amer 101 Est GFR (MDRD) Non-Af 83 BUN/Creatinine Ratio 22.6 H Glucose 127 H Calcium 8.2 L Assessment/Plan Active and Suspected Problems COPD exacerbation (Acute) Acute and chronic respiratory failure (Acute) #1 acute on chronic combined respiratory failure secondary to COPD exacerbation- continue present treatment #2 acute exacerbation of COPD-I will decrease the patient's aerosol treatments every 6 hours-this may lessen the patient's anxiety symptoms, I will continue to give IV Solu-Medrol, I do not believe the patient needs continued Levaquin, I have stopped this medication today the patient is not coughing any purulent sputum, I believe he has chronic bronchitis #3 anxiety-patient will continue on Ativan, I will increase it to 4 times a day as needed #4 moderate malnutrition-continue supplements #5 generalized debility-continue PT and OT, await half-way home placement Code Visit Inpatient E&M: [id number] Subs Hosp L2
[2017-09-10] MEDS: Tamsulosin HCl 0.4 MG Capsule PO (18:26)
[2017-09-11] VITALS (11 sets, daily range): BP systolic 99–141; BP diastolic 60–86; PULSE 72–98; RESP 16–36; TEMP 36.7–36.9; O2SAT 90–98
[2017-09-11] MEDS: Mag Hydrox/Al Hydrox/Simeth 30 ML UDC PO (00:35)
[2017-09-11] MEDS: Ipratropium/Albuterol Sulfate 3 ML AMPUL.NEB INHALATION ×3 (02:35→12:22)
[2017-09-11] MEDS: LORazepam 0.5 MG Tablet PO ×3 (06:17→18:31)
[2017-09-11] MEDS: 0.9% NaCl Peripheral Flush Adult/Peds IV ×2 (06:18→15:20)
[2017-09-11] MEDS: Enoxaparin 40 MG/0.4 ML Syringe SC (06:18)
[2017-09-11] MEDS: guaiFENesin 1,200 MG Tablet 1200 MG PO ×2 (08:49→21:07)
[2017-09-11] MEDS: Folic Acid 1 MG Tablet PO (08:49)
[2017-09-11] MEDS: Furosemide 20 MG Tablet PO (08:50)
[2017-09-11] MEDS: Pantoprazole Sodium 40 MG Tablet PO (08:51)
--- NOTE | 2017-09-11 11:58 | NURSING ---
Mr. Pat takes ativan at home at 6am, 12pm, 1800, and 12am. pt would like that given like that here. Dr. Hui aware, ativan is now scheduled not prn. Ativan last given at 0615 this am.
[2017-09-11] MEDS: Albuterol 2.5 MG/3 ML VIAL.NEB. INHALATION ×3 (15:21→23:11)
[2017-09-11] MEDS: Tamsulosin HCl 0.4 MG Capsule PO (18:32)
--- NOTE | 2017-09-11 18:56 | PCM.PROGNOTE ---
Patient Problems: Active and Suspected Problems COPD exacerbation (Acute) Acute and chronic respiratory failure (Acute) Subjective: Patient was seen and examined today, he appears anxious, he is asking nursing if the component of DuoNeb it is not albuterol is causing his nervousness, I told him it was not, he also blamed his IV Solu-Medrol on his anxiety, I told him that we can try and reduce the dose of Solu-Medrol today to see if this helps and give him programmed Ativan rather than as needed Ativan. We are currently awaiting approval for the patient to go to a intermediate facility for further care - Physical Exam General: Alert, Oriented x3, Cooperative, No apparent distress, Well developed, - - Patient appears anxious HEENT: Atraumatic, PERRLA, EOMI, Normocephalic Oral: Moist Mucosa Neck: Supple, No JVD, No Nuchal Rigidity, Trachea Midline, Thyroid Normal Size and Texture Lungs: No rhonchi, No rales, Diminished, Wheezes - Expiratory wheezes are scattered throughout both lung anguiano Cardiovascular: Regular rate, Regular Rhythm, Normal S1, Normal S2, No murmurs, No Ectopic Activity, PMI Normal, No rub noted, No Gallop Abdomen: Bowel Sounds Present, Soft, Non Tender, Non-Distended, No hernias noted Extremities: No clubbing, No cyanosis, Capillary Refill Less than 3 Seconds Skin: No rashes, No breakdown Neurological: Cranial nerves II-XII grossly intact, Neuro grossly intact, Sensory exam intact to light touch and pain, Coordination normal Psych/Mental Status: Appropriate, Anxious, Alert and oriented to time, place, person, mood and affect Vital Signs Temp Pulse Resp BP Pulse Ox 98.0 F 75 24 H 107/67 97 09/11/17 14:00 09/11/17 15:21 09/11/17 15:21 09/11/17 14:00 09/11/17 14:00 Oxygen Flow Rate 3 Oxygen Delivery Method Nasal Cannula Weight: 62.3 kg Body Mass Index (BMI) 19.6 Intake and Output for Last 24 Hours 09/09/17 09/10/17 09/11/17 23:59 23:59 23:59 Intake Total 2740 / 2740 2856 / 2856 1372 / 1372 Output Total 2650 / 2650 1950 / 1950 2950 / 2950 Balance 90 / 90 906 / 906 -1578 / -1578 Assessment/Plan Active and Suspected Problems COPD exacerbation (Acute) Acute and chronic respiratory failure (Acute) #1 acute on chronic combined respiratory failure secondary to COPD exacerbation-continue present treatment #2 acute exacerbation of COPD-patient's Solu-Medrol dosage was decreased to 20 mg IV q8 HR to see if this affects his anxiety #3 anxiety-patient will continue on Ativan, I will increase it to 4 times programmed #4 moderate malnutrition-continue supplements #5 generalized debility-continue PT and OT, await intermediate home placement #6 urinary retention-patient states that he would like his Maria left in because he is not able to urinate without it Summary: 77-year-old male was admitted with worsening respiratory status due to an acute exacerbation of COPD, he is on chronic oxygen at home at all times, he was admitted for exacerbation of COPD and acute on chronic hypoxic respiratory failure. Due to the patient's debility, he will need to go to intermediate facility at the time of discharge, Maria catheters in place due to BPH and inability to urinate. Patient also has a severe anxiety component which is exacerbated by current treatment with aerosol treatments and Solu-Medrol. Code Visit Inpatient E&M: [id number] Subs Hosp L2
--- NOTE | 2017-09-11 19:01 | PN_ITS ---
Patient Problems: Active and Suspected Problems COPD exacerbation (Acute) Acute and chronic respiratory failure (Acute) Subjective: Patient was seen and examined today, he appears anxious, he is asking nursing if the component of DuoNeb it is not albuterol is causing his nervousness, I told him it was not, he also blamed his IV Solu-Medrol on his anxiety, I told him that we can try and reduce the dose of Solu-Medrol today to see if this helps and give him programmed Ativan rather than as needed Ativan. We are currently awaiting approval for the patient to go to a alf facility for further care - Physical Exam General: Alert, Oriented x3, Cooperative, No apparent distress, Well developed, - - Patient appears anxious HEENT: Atraumatic, PERRLA, EOMI, Normocephalic Oral: Moist Mucosa Neck: Supple, No JVD, No Nuchal Rigidity, Trachea Midline, Thyroid Normal Size and Texture Lungs: No rhonchi, No rales, Diminished, Wheezes - Expiratory wheezes are scattered throughout both lung anguiano Cardiovascular: Regular rate, Regular Rhythm, Normal S1, Normal S2, No murmurs, No Ectopic Activity, PMI Normal, No rub noted, No Gallop Abdomen: Bowel Sounds Present, Soft, Non Tender, Non-Distended, No hernias noted Extremities: No clubbing, No cyanosis, Capillary Refill Less than 3 Seconds Skin: No rashes, No breakdown Neurological: Cranial nerves II-XII grossly intact, Neuro grossly intact, Sensory exam intact to light touch and pain, Coordination normal Psych/Mental Status: Appropriate, Anxious, Alert and oriented to time, place, person, mood and affect Vital Signs Temp Pulse Resp BP Pulse Ox 98.0 F 75 24 H 107/67 97 09/11/17 14:00 09/11/17 15:21 09/11/17 15:21 09/11/17 14:00 09/11/17 14:00 Oxygen Flow Rate 3 Oxygen Delivery Method Nasal Cannula Weight: 62.3 kg Body Mass Index (BMI) 19.6 Intake and Output for Last 24 Hours 09/09/17 09/10/17 09/11/17 23:59 23:59 23:59 Intake Total 2740 / 2740 2856 / 2856 1372 / 1372 Output Total 2650 / 2650 1950 / 1950 2950 / 2950 Balance 90 / 90 906 / 906 -1578 / -1578 Assessment/Plan Active and Suspected Problems COPD exacerbation (Acute) Acute and chronic respiratory failure (Acute) #1 acute on chronic combined respiratory failure secondary to COPD exacerbation- continue present treatment #2 acute exacerbation of COPD-patient's Solu-Medrol dosage was decreased to 20 mg IV q8 HR to see if this affects his anxiety #3 anxiety-patient will continue on Ativan, I will increase it to 4 times programmed #4 moderate malnutrition-continue supplements #5 generalized debility-continue PT and OT, await alf home placement #6 urinary retention-patient states that he would like his Maria left in because he is not able to urinate without it Summary: 77-year-old male was admitted with worsening respiratory status due to an acute exacerbation of COPD, he is on chronic oxygen at home at all times, he was admitted for exacerbation of COPD and acute on chronic hypoxic respiratory failure. Due to the patient's debility, he will need to go to alf facility at the time of discharge, Maria catheters in place due to BPH and inability to urinate. Patient also has a severe anxiety component which is exacerbated by current treatment with aerosol treatments and Solu-Medrol. Code Visit Inpatient E&M: [id number] Subs Hosp L2
[2017-09-12] VITALS (14 sets, daily range): BP systolic 126–142; BP diastolic 74–81; PULSE 70–88; RESP 16–22; TEMP 36.8–37.1; O2SAT 97–99
[2017-09-12] MEDS: LORazepam 0.5 MG Tablet PO ×5 (00:04→23:14)
[2017-09-12] MEDS: Albuterol 2.5 MG/3 ML VIAL.NEB. INHALATION ×5 (03:02→23:06)
[2017-09-12] MEDS: Enoxaparin 40 MG/0.4 ML Syringe SC (05:39)
--- NOTE | 2017-09-12 08:16 | CPS ---
PT DOES NOT DUONEB GIVEN, WANTS ALBUTEROL ONLY.
--- NOTE | 2017-09-12 08:50 | PN_ITS ---
Patient Problems: Active and Suspected Problems COPD exacerbation (Acute) Acute and chronic respiratory failure (Acute) Subjective: Patient is a 77-year-old male admitted with progressive shortness of breath and assessment of COPD exacerbation made admitted to regular nursing floor for further management Objective: GENERAL: Dyspneic at rest HEENT: Clear conjunctiva, NECK; supple, normal thyroid, CHEST: Diminished to auscultation with some wheezes HEART: Regular S1 S2, no audible murmurs ABDOMEN: soft, non-tender, normoactive bowel sounds, RECTAL: deferred EXTREMITIES: No edema, no clubbing, no cyanosis. CINETECHNICIAN: Awake, ano lateralizing signs. SKIN: No rash Vitals/I&O's: Vital Signs Temp Pulse Resp BP Pulse Ox 98.2 F 76 20 H 131/79 H 98 09/12/17 01:30 09/12/17 07:02 09/12/17 07:02 09/12/17 01:30 09/12/17 07:02 Oxygen Flow Rate 4 Oxygen Delivery Method Nasal Cannula Weight: 62.3 kg Body Mass Index (BMI) 19.6 Intake and Output for Last 24 Hours 09/10/17 09/11/17 09/12/17 23:59 23:59 23:59 Intake Total 2856 / 2856 1372 / 1372 200 / 200 Output Total 1950 / 1950 2950 / 2950 850 / 850 Balance 906 / 906 -1578 / -1578 -650 / -650 Current Medications Acetaminophen (Tylenol) 650 mg PO Q6H PRN PRN PRN Reason: Mild Pain (1-3)/Temp > 100.7 F Albuterol Sulfate (Ventolin Aerosols) 2.5 mg INHALATION Q2H PRN PRN PRN Reason: SHORTNESS OF BREATH Last Admin: 09/12/17 07:02 Dose: 2.5 mg Albuterol/Ipratropium (Duoneb) 3 ml INHALATION Q6H.RT [facility] Last Admin: 09/12/17 07:02 Dose: Not Given Bisacodyl (Dulcolax) 5 mg PO DAILY PRN PRN PRN Reason: Constipation Enoxaparin Sodium (Lovenox) 40 mg SC DAILY@0600 [facility] Last Admin: 09/12/17 05:39 Dose: 40 mg Folic Acid (Folic Acid) 1 mg PO DAILY@0800 [facility] Last Admin: 09/11/17 08:49 Dose: 1 mg Furosemide (Lasix) 20 mg PO DAILY [facility] Last Admin: 09/11/17 08:50 Dose: 20 mg Guaifenesin (Mucinex) 1,200 mg PO BID [facility] Last Admin: 09/11/17 21:07 Dose: 1,200 mg Lorazepam (Ativan) 0.5 mg PO Q6 [facility] Last Admin: 09/12/17 05:42 Dose: 0.5 mg Nutritional Formula (Lactose Free) (Ensure Enlive) 120 ml PO 4X/DAY [facility] Last Admin: 09/11/17 21:07 Dose: Not Given Ondansetron HCl (Zofran) 4 mg IV Q8H PRN PRN PRN Reason: Nausea Pantoprazole Sodium (Protonix) 40 mg PO DAILY [facility] Last Admin: 09/11/17 08:51 Dose: 40 mg [facility] Sodium Chloride () 5 - 30 ml IV UD PRN PRN Reason: SALINE FLUSH Last Admin: 09/11/17 15:20 Dose: 10 ml Sodium Chloride ([place] Nasal [place]) 1 spray NASAL TID PRN PRN PRN Reason: NASAL DRYNESS Tamsulosin HCl (Flomax) 0.4 mg PO DAILY@1730 [facility] Last Admin: 09/11/17 18:32 Dose: 0.4 mg Assessment/Plan Active and Suspected Problems COPD exacerbation (Acute) Acute and chronic respiratory failure (Acute) Patient is a 77-year-old male admitted with progressive shortness of breath and assessment of COPD exacerbation made admitted to regular nursing floor for further management 1. COPD with acute exacerbation: Regular nursing floor managed with systemic steroid, bronchodilator therapy as well as antibiotics in addition to supplemental oxygen. Patient steroid dose adjusted in view of patient experiencing tremors 2. Chronic combined respiratory failure patient is on baseline home O2 did continue 3. Anxiety disorder patient is on Ativan 4. Moderate protein calorie malnutrition did continue with nutritional supplements 5. Physical debility requested for PT OT and hospice social worker to assist with discharge planning 6. BPH with bladder outlet obstruction resulting in urinary retention Maria catheter was placed 7. Hyponatremia resolved with IV hydration 8. DVT prophylaxis with Lovenox. Clinical Impression(s) from Imaging Studies Chest X-Ray 09/07/17 17:50 IMPRESSION: COPD with air-trapping. No new infiltrate. at 1819 Reported and signed by: Bonnie Vincent MD Electronically Signed: Bonnie Vincent MD at 17:18 EST Tel , Service support , Code Visit Inpatient E&M: 51468 Subs Hosp L3
[2017-09-12] MEDS: guaiFENesin 1,200 MG Tablet 1200 MG PO ×2 (09:03→21:02)
[2017-09-12] MEDS: Folic Acid 1 MG Tablet PO (09:03)
[2017-09-12] MEDS: Furosemide 20 MG Tablet PO (09:03)
[2017-09-12] MEDS: Pantoprazole Sodium 40 MG Tablet PO (09:03)
--- NOTE | 2017-09-12 09:27 | CASEMGMT ---
Social Work Note Placed call to Roula with TCU to check on status of pre-cert. Will await a return phone call. Plan: TCU pending pre-cert. Denisa Ferrari, CAT SCANNER OPERATOR, AUTOMATIC FANCY MACHINE OPERATOR
[2017-09-12] MEDS: Tamsulosin HCl 0.4 MG Capsule PO (17:41)
[2017-09-12] MEDS: Ipratropium/Albuterol Sulfate 3 ML AMPUL.NEB INHALATION (18:42)
[2017-09-12] MEDS: 0.9% NaCl Peripheral Flush Adult/Peds IV (21:02)
[2017-09-12] MEDS: Bisacodyl 5 MG Tablet PO (21:02)
[2017-09-13] VITALS (13 sets, daily range): BP systolic 95–108; BP diastolic 57–66; PULSE 64–90; RESP 16–20; TEMP 36.7–37.1; O2SAT 94–98
[2017-09-13] MEDS: Albuterol 2.5 MG/3 ML VIAL.NEB. INHALATION ×6 (03:33→23:07)
[2017-09-13] MEDS: LORazepam 0.5 MG Tablet PO ×4 (06:32→23:01)
[2017-09-13 06:44] LABS: Absolute Lymphocyte Count 0.49 X10^3/ul (0.83-4.51); Absolute Neutrophil Count 5.4 X10^3/uL (2.0-7.7); Differential Indicated SCAN CRITERIA MET; Hematocrit 40.8 % (40-54); Hemoglobin 12.7 g/dl (13.0-16.5); Lymphocyte # 0.49 X10^3/ul (4.0); Lymphocyte % 7.7 % (19-41); Mean Corp Hgb Conc 31.1 g/gl (32-36); Mean Corpuscular Hgb 28.5 pg (27.0-32.0); Mean Corpuscular Volume 91.7 fL (80-94); Mean Platelet Vol. 9.2 fl (6.2-12.0); Monocyte# 0.51 X10^3/uL; Neutrophil # 5.37 X10^3/uL (2.7-7.7); POSITIVE COUNT NO; POSITIVE DIFFERENTIAL YES; POSITIVE MORPHOLOGY NO; Platelet Count 119 K/mm3 (150-450); RBC Distribution Width CV 13.3 % (11.6-14.6); RBC Distribution Width SD 44.7 fl (35.1-43.9); Red Blood Count 4.45 M/mm3 (4.6-6.2); White Blood Count 6.4 K/mm3 (4.4-11.0)
[2017-09-13] MEDS: Enoxaparin 40 MG/0.4 ML Syringe SC (06:52)
[2017-09-13] MEDS: Folic Acid 1 MG Tablet PO (07:58)
--- NOTE | 2017-09-13 09:43 | PN_ITS ---
Patient Problems: Active and Suspected Problems COPD exacerbation (Acute) Acute and chronic respiratory failure (Acute) Subjective: Patient seen admitted to his cough being more productive but tool design engineer in color. Still awaiting insurance precertification prior to transfer to intermediate facility. Objective: GENERAL: Dyspneic at rest HEENT: Clear conjunctiva, NECK; supple, normal thyroid, CHEST: Diminished to auscultation with some wheezes HEART: Regular S1 S2, no audible murmurs ABDOMEN: soft, non-tender, normoactive bowel sounds, RECTAL: deferred EXTREMITIES: No edema, no clubbing, no cyanosis. SEWING MACHINE ADJUSTER: Awake, ano lateralizing signs. SKIN: No rash Vitals/I&O's: Vital Signs Temp Pulse Resp BP Pulse Ox 98.2 F 78 20 H 101/66 94 09/13/17 03:23 09/13/17 07:15 09/13/17 07:15 09/13/17 03:23 09/13/17 07:37 Oxygen Flow Rate 3 Oxygen Delivery Method Nasal Cannula Weight: 62.3 kg Body Mass Index (BMI) 19.6 Intake and Output for Last 24 Hours 09/11/17 09/12/17 09/13/17 23:59 23:59 23:59 Intake Total 1372 / 1372 1670 / 1670 500 / 500 Output Total 2950 / 2950 2950 / 2950 400 / 400 Balance -1578 / -1578 -1280 / -1280 100 / 100 Laboratory Results 09/13/17 06:00: WBC 6.4, RBC 4.45 L, Hgb 12.7 L, Hct 40.8, MCV 91.7, MCH 28.5, MCHC 31.1 L, RDW 13.3, RDW Differential 44.7 H, Plt Count 119 L, MPV 9.2, Immature Gran % (Auto) 0.300, Neut % (Auto) 84.0 H, Lymph % (Auto) 7.7 L, [place] % (Auto) 8.0, Eos % (Auto) 0.0, Baso % (Auto) 0.0, Absolute Neuts (auto) 5.4, Absolute Lymphs (auto) 0.49 L, Total Counted Not Reportable, Differential Comment Current Medications Acetaminophen (Tylenol) 650 mg PO Q6H PRN PRN PRN Reason: Mild Pain (1-3)/Temp > 100.7 F Albuterol Sulfate (Ventolin Aerosols) 2.5 mg INHALATION Q2H PRN PRN PRN Reason: SHORTNESS OF BREATH Last Admin: 09/13/17 07:04 Dose: 2.5 mg Albuterol/Ipratropium (Duoneb) 3 ml INHALATION Q6H.RT [facility] Last Admin: 09/13/17 01:00 Dose: Not Given Bisacodyl (Dulcolax) 5 mg PO DAILY PRN PRN PRN Reason: Constipation Last Admin: 09/12/17 21:02 Dose: 5 mg Enoxaparin Sodium (Lovenox) 40 mg SC DAILY@0600 [facility] Last Admin: 09/13/17 06:52 Dose: 40 mg Folic Acid (Folic Acid) 1 mg PO DAILY@0800 [facility] Last Admin: 09/13/17 07:58 Dose: 1 mg Furosemide (Lasix) 20 mg PO DAILY [facility] Last Admin: 09/12/17 09:03 Dose: 20 mg Guaifenesin (Mucinex) 1,200 mg PO BID [facility] Last Admin: 09/12/17 21:02 Dose: 1,200 mg Lorazepam (Ativan) 0.5 mg PO Q6 [facility] Last Admin: 09/13/17 06:32 Dose: 0.5 mg Nutritional Formula (Lactose Free) (Ensure Enlive) 120 ml PO 4X/DAY [facility] Last Admin: 09/12/17 21:02 Dose: 120 ml Ondansetron HCl (Zofran) 4 mg IV Q8H PRN PRN PRN Reason: Nausea Pantoprazole Sodium (Protonix) 40 mg PO DAILY [facility] Last Admin: 09/12/17 09:03 Dose: 40 mg Prednisone (Prednisone) 20 mg PO BIDCM [facility] Last Admin: 09/13/17 07:59 Dose: 20 mg Sodium Chloride () 5 - 30 ml IV UD PRN PRN Reason: SALINE FLUSH Last Admin: 09/12/17 21:02 Dose: 10 ml Sodium Chloride ([place] Nasal [place]) 1 spray NASAL TID PRN PRN PRN Reason: NASAL DRYNESS Tamsulosin HCl (Flomax) 0.4 mg PO DAILY@1730 [facility] Last Admin: 09/12/17 17:41 Dose: 0.4 mg Assessment/Plan Active and Suspected Problems COPD exacerbation (Acute) Acute and chronic respiratory failure (Acute) Patient is a 77-year-old male admitted with progressive shortness of breath and assessment of COPD exacerbation made admitted to regular nursing floor for further management 1. COPD with acute exacerbation: Regular nursing floor managed with systemic steroid, bronchodilator therapy as well as antibiotics in addition to supplemental oxygen. Patient steroid dose adjusted in view of patient experiencing tremors 2. Chronic combined respiratory failure patient is on baseline home O2 did continue 3. Anxiety disorder patient is on Ativan 4. Moderate protein calorie malnutrition did continue with nutritional supplements 5. Physical debility requested for PT OT and neonatal social worker to assist with discharge planning 6. BPH with bladder outlet obstruction resulting in urinary retention Maria catheter was placed 7. Hyponatremia resolved with IV hydration 8. DVT prophylaxis with Lovenox. Clinical Impression(s) from Imaging Studies Chest X-Ray 09/07/17 17:50 IMPRESSION: COPD with air-trapping. No new infiltrate. at 1819 Reported and signed by: Bonnie Vincent MD Electronically Signed: Bonnie Vincent MD at 17:18 EST Tel , Service support , Code Visit Inpatient E&M: [id number] Subs Hosp L2
[2017-09-13] MEDS: guaiFENesin 1,200 MG Tablet 1200 MG PO ×2 (10:49→23:01)
[2017-09-13] MEDS: Pantoprazole Sodium 40 MG Tablet PO (10:49)
[2017-09-13] MEDS: Furosemide 20 MG Tablet PO (10:49)
[2017-09-13] MEDS: Tamsulosin HCl 0.4 MG Capsule PO (17:51)
[2017-09-13] MEDS: Bisacodyl 10 MG Suppository RECTAL (19:54)
[2017-09-13] MEDS: Magnesium Hydroxide 30 ML UDC PO (19:54)
[2017-09-14] VITALS (9 sets, daily range): BP systolic 111–136; BP diastolic 71–73; PULSE 72–89; RESP 17–20; TEMP 36.4–37.1; O2SAT 93–96
[2017-09-14] MEDS: Albuterol 2.5 MG/3 ML VIAL.NEB. INHALATION ×4 (03:00→14:10)
[2017-09-14] MEDS: LORazepam 0.5 MG Tablet PO ×2 (05:58→11:47)
[2017-09-14] MEDS: Enoxaparin 40 MG/0.4 ML Syringe SC (05:58)
--- NOTE | 2017-09-14 09:17 | CASEMGMT ---
Social Work Note Call from insurance this morning that the pt was denied for placement. Will discuss with physician during rounds if he is willing to complete a peer to peer. Still awaiting denial information from [facility]. Face to face with the pt to discuss discharge planning. Inform that pt's insurance denied placement and inquired what his plan would be. Pt states that he cannot go home, and claims that he cannot privately pay. Inform that SW will see if the physician feels a peer to peer is appropriate, otherwise we can submit for Medicaid and attempt to get a pending Medicaid number. Discuss that if we have to do pending Medicaid the pt cannot go to TCU as they do not accept Medicaid for payment and he states that he would like to go to [facility] if necessary. Medicaid application faxed to EAN and SW to continue to follow and assist with discharge planning. Denisa Ferrari, LYE TREATER, ELEMENTARY ELL TEACHER
--- NOTE | 2017-09-14 09:58 | CASEMGMT ---
Addendum entered by Denisa Ferrari 09/14/17 10:49: Social Work Note Denial information came through. Placed call to [phone], option 2, [phone] and setup peer to peer with Zachary at [facility]. States message sent to AMITA Liriano assigned to pt's case and his extension is [id number]. Peer to peer setup between [phone]. Physician notified. JIM Nicole, RN CLINICIAN Original Note: Social Work Note Placed call to Kim with [employer] at [phone] and left vm requesting denial information and number to setup peer to peer as [facility] has not faxed the denial information. Discussed with attending physician who will attempt peer to peer. Left vm with Roula to see if [facility] by accident faxed her the denial information. SW to continue to follow and assist and will setup peer to peer upon receiving information. JIM Nicole, RN CLINICIAN
--- NOTE | 2017-09-14 10:12 | PCM.PN.HOSP ---
Patient Problems: Active and Suspected Problems COPD exacerbation (Acute) Acute and chronic respiratory failure (Acute) Subjective: Patient seen his precertification was apparently denied plan is to appeal through peer to peer. Objective: GENERAL: Dyspneic at rest HEENT: Clear conjunctiva, NECK; supple, normal thyroid, CHEST: Diminished to auscultation with some wheezes HEART: Regular S1 S2, no audible murmurs ABDOMEN: soft, non-tender, normoactive bowel sounds, RECTAL: deferred EXTREMITIES: No edema, no clubbing, no cyanosis. TYPE CASTER: Awake, ano lateralizing signs. SKIN: No rash Vitals/I&O's: Vital Signs Temp Pulse Resp BP Pulse Ox 97.5 F L 73 20 H 111/71 93 09/14/17 08:22 09/14/17 08:22 09/14/17 08:22 09/14/17 08:22 09/14/17 08:35 Oxygen Flow Rate 4 Oxygen Delivery Method Nasal Cannula Weight: 62.3 kg Body Mass Index (BMI) 19.6 Intake and Output for Last 24 Hours 09/12/17 09/13/17 09/14/17 23:59 23:59 23:59 Intake Total 1670 / 1670 2350 / 2350 400 / 400 Output Total 2950 / 2950 2500 / 2500 350 / 350 Balance -1280 / -1280 -150 / -150 50 / 50 Current Medications Acetaminophen (Tylenol) 650 mg PO Q6H PRN PRN PRN Reason: Mild Pain (1-3)/Temp > 100.7 F Albuterol Sulfate (Ventolin Aerosols) 2.5 mg INHALATION Q2H PRN PRN PRN Reason: SHORTNESS OF BREATH Last Admin: 09/14/17 07:06 Dose: 2.5 mg Albuterol/Ipratropium (Duoneb) 3 ml INHALATION Q6H.RT [facility] Last Admin: 09/14/17 01:00 Dose: Not Given Bisacodyl (Dulcolax) 5 mg PO DAILY PRN PRN PRN Reason: Constipation Last Admin: 09/12/17 21:02 Dose: 5 mg Enoxaparin Sodium (Lovenox) 40 mg SC DAILY@0600 [facility] Last Admin: 09/14/17 05:58 Dose: 40 mg Folic Acid (Folic Acid) 1 mg PO DAILY@0800 [facility] Last Admin: 09/13/17 07:58 Dose: 1 mg Furosemide (Lasix) 20 mg PO DAILY [facility] Last Admin: 09/13/17 10:49 Dose: 20 mg Guaifenesin (Mucinex) 1,200 mg PO BID [facility] Last Admin: 09/13/17 23:01 Dose: 1,200 mg Lorazepam (Ativan) 0.5 mg PO Q6 [facility] Last Admin: 09/14/17 05:58 Dose: 0.5 mg Nutritional Formula (Lactose Free) (Ensure Enlive) 120 ml PO 4X/DAY [facility] Last Admin: 09/13/17 23:02 Dose: Not Given Ondansetron HCl (Zofran) 4 mg IV Q8H PRN PRN PRN Reason: Nausea Pantoprazole Sodium (Protonix) 40 mg PO DAILY [facility] Last Admin: 09/13/17 10:49 Dose: 40 mg Prednisone (Prednisone) 20 mg PO BIDCM [facility] Last Admin: 09/13/17 17:51 Dose: 20 mg Sodium Chloride () 5 - 30 ml IV UD PRN PRN Reason: SALINE FLUSH Last Admin: 09/12/17 21:02 Dose: 10 ml Sodium Chloride ([place] Nasal [place]) 1 spray NASAL TID PRN PRN PRN Reason: NASAL DRYNESS Tamsulosin HCl (Flomax) 0.4 mg PO DAILY@1730 [facility] Last Admin: 09/13/17 17:51 Dose: 0.4 mg Assessment/Plan Active and Suspected Problems COPD exacerbation (Acute) Acute and chronic respiratory failure (Acute) Patient is a 77-year-old male admitted with progressive shortness of breath and assessment of COPD exacerbation made admitted to regular nursing floor for further management 1. COPD with acute exacerbation: Regular nursing floor managed with systemic steroid, bronchodilator therapy as well as antibiotics in addition to supplemental oxygen. Patient steroid dose adjusted in view of patient experiencing tremors 2. Chronic combined respiratory failure patient is on baseline home O2 did continue 3. Anxiety disorder patient is on Ativan 4. Moderate protein calorie malnutrition did continue with nutritional supplements 5. Physical debility requested for PT OT and social worker aide to assist with discharge planning plan is for patient to be discharged to a penitentiary facility pending insurance approval 6. BPH with bladder outlet obstruction resulting in urinary retention Maria catheter was placed 7. Hyponatremia resolved with IV hydration 8. DVT prophylaxis with Lovenox. Clinical Impression(s) from Imaging Studies Chest X-Ray 09/07/17 17:50 IMPRESSION: COPD with air-trapping. No new infiltrate. at 1819 Reported and signed by: Bonnie Vincent MD Electronically Signed: Bonnie Vincent MD at 17:18 EST Tel , Service support , Code Visit Inpatient E&M: [id number] Subs Hosp L2
[2017-09-14] MEDS: Pantoprazole Sodium 40 MG Tablet PO (10:19)
[2017-09-14] MEDS: Folic Acid 1 MG Tablet PO (10:19)
[2017-09-14] MEDS: Furosemide 20 MG Tablet PO (10:19)
[2017-09-14] MEDS: guaiFENesin 1,200 MG Tablet 1200 MG PO (10:19)
--- NOTE | 2017-09-14 14:07 | PCM.TXEXTCAR ---
- Diet 09/07/17 19:14 Diet: Regular Diet Food consistency:: Regular Liquid Consistency:: Regular/Thin - Allergies/Procedures Done in Hospital Allergies/Adverse Reactions: Allergies atorvastatin [From Lipitor] Allergy (Verified 09/07/17 17:34) Other indomethacin [From Indocin] Allergy (Verified 09/07/17 17:34) Other primidone Allergy (Verified 09/07/17 17:34) Other sertraline [From Zoloft] Allergy (Verified 09/07/17 17:34) Other - Type of Care/Length of Stay Estimated LOS: Convalescent Care Less Than 30 days Type of Care Needed: Skilled Rehab Potential: Fair Prognosis: Fair - Additional Orders/Day of Discharge Day of Discharge: 09/14/17 - Dietary and Speech Recommendations Dietitian Recommendations/Changes: Rec continue ONS medpass d/t only fair po intake and low BMI - Follow Up Care Primary Care Physician: Torrey Davis MD [Primary Care Provider] - Please follow up with your Primary Care Physician in: in 1-2 weeks
--- NOTE | 2017-09-14 14:11 | PCM.DC.SUM ---
Discharge Date and Diagnosis - Problem List Patient Problems: Active and Suspected Problems COPD exacerbation (Acute) Acute and chronic respiratory failure (Acute) Date of Admission: 09/07/17 Date of Discharge: 09/14/17 - Primary Discharge Diagnosis Active and Suspected Problems COPD exacerbation (Acute) Acute and chronic respiratory failure (Acute) - Secondary Discharge Diagnosis Chronic Problems BPH (benign prostatic hyperplasia) (Chronic) Spontaneous pneumothorax (Chronic) COLD (chronic obstructive lung disease) (Chronic) Hospital Course and Treatment Imaging Results: Clinical Impression(s) from Imaging Studies Chest X-Ray 09/07/17 17:50 IMPRESSION: COPD with air-trapping. No new infiltrate. at 1819 Reported and signed by: Bonnie Vincent MD Electronically Signed: Bonnie Vincent MD at 17:18 EST Tel , Service support , Summary of Care Provided: Patient is a 77-year-old male admitted with progressive shortness of breath and assessment of COPD exacerbation made admitted to regular nursing floor for further management 1. COPD with acute exacerbation: Regular nursing floor managed with systemic steroid, bronchodilator therapy as well as antibiotics in addition to supplemental oxygen. Patient steroid dose adjusted in view of patient experiencing tremors 2. Chronic combined respiratory failure patient is on baseline home O2 did continue 3. Anxiety disorder patient is on Ativan 4. Moderate protein calorie malnutrition did continue with nutritional supplements 5. Physical debility requested for PT OT and social staff worker to assist with discharge planning; patient was discharged to a [facility] facility once insurance precertification was obtained 6. BPH with bladder outlet obstruction resulting in urinary retention Maria catheter was placed 7. Hyponatremia resolved with IV hydration 8. DVT prophylaxis with Lovenox. Discharge Diet: No Restrictions Home Medications: Medications to take at Discharge Budesonide/Formoterol 160/4.5 [Symbicort 160/4.5 Mcg Inhaler (SP)] 2 puff INHALATION BID 09/07/17 Cetirizine HCl [Allergy Relief] 10 mg PO DAILY 09/07/17 Ergocalciferol [Vitamin D] 50,000 unit PO QMONTH 09/07/17 Folic Acid 1 mg PO DAILY@0800 09/07/17 Furosemide [Lasix] 20 mg PO DAILY 09/07/17 Lycopene 10 mg PO QODAY 09/07/17 Potassium Chloride 10 meq PO DAILY 09/07/17 Selenium 200 mcg PO QODAY 09/07/17 Tamsulosin HCl [Flomax] 0.4 mg PO DAILY 09/07/17 Tiotropium [place] [Spiriva 18 MCG] 1 puff INHALATION DAILY 09/07/17 Aspirin [Aspirin, Baby] 81 mg PO DAILY@0800 09/08/17 Ensure Enlive 120 ml PO BID 09/08/17 Acetaminophen [Tylenol Tablet] 650 mg PO Q6H PRN PRN tablet 09/14/17 Albuterol Aerosols [Ventolin Aerosols] 2.5 mg INHALATION Q2H PRN PRN vial.neb. 09/14/17 Bisacodyl [Dulcolax] 5 mg PO DAILY PRN PRN tablet 09/14/17 Ensure Enlive 120 ml PO 4X/DAY liquid 09/14/17 Guaifenesin [Mucinex] 1,200 mg PO BID tablet 09/14/17 Ipratropium/Albuterol Sulfate [Duoneb] 3 ml INHALATION Q6H.RT ampul.neb 09/14/17 Lorazepam [Ativan] 0.5 mg PO TID #20 tab 09/14/17 Pantoprazole Sodium [Protonix] 40 mg PO DAILY tablet 09/14/17 Prednisone 10 mg PO UD #30 tab 09/14/17 Following Prescrptions Were Given to Patient: Lorazepam [Ativan] 0.5 mg PO TID #20 tab Prednisone 10 mg PO UD #30 tab Primary Care Physician: Torrey Davis MD [Primary Care Provider] - Please follow up with your Primary Care Physician in: in 1-2 weeks Disposition: Detention facility Minutes spent on discharge:: 35 Patient Condition:: Stable Meaningful Use Info Meaningful Use Diagnoses (Choose all that apply): None applicable Code Visit Inpatient E&M: 31597 Disch Hosp
--- NOTE | 2017-09-14 15:17 | NURSING ---
report called to tcu
--- NOTE | 2017-09-14 15:28 | CASEMGMT ---
Social Work Note Call from Erin Escoto at [facility] stating that the pt's pending number is [phone]. Notified TCU SWLinda, of pending number if needed in future for discharge planning. Pt to discharge to TCU as denial was overturned following peer to peer review. Plan: TCU for rehabilitation. Denisa Ferrari, RAPIER INSERTION LOOM FIXER, TEACHER DRAMATICS
== END 2017-09-14 15:38 | disposition skilled nursing facility (03) | DRG 189 ==
LOC: ED 18:12 → MS3 19:23
PROVIDERS: Family Medicine; Internal Medicine; Admitting Provider Internal Medicine; Emergency Provider Emergency Medicine; Family Provider Internal Medicine; PCP Internal Medicine; Visit Provider Internal Medicine
DX: J96.21 Acute and chronic respiratory failure with hypoxia (principal); E44.0 Moderate protein-calorie malnutrition; Z99.81 Dependence on supplemental oxygen; J44.1 Chronic obstructive pulmonary disease with (acute) exacerbation; E87.1 Hypo-osmolality and hyponatremia; Z68.1 Body mass index [BMI] 19.9 or less, adult; N13.8 Other obstructive and reflux uropathy; F41.9 Anxiety disorder, unspecified; N40.1 Benign prostatic hyperplasia with lower urinary tract symptoms; Z87.891 Personal history of nicotine dependence; Z79.899 Other long term (current) drug therapy
CPT/HCPCS: 36415; 36600; 71045; 80048; 82803; 83880; 84484; 85025; 87633; 87804; 93005; 94002; 94640; 97110; 97116; 97162; 97165; 97530; 97535; 97802; 99251; 99283; J7030; A4216; G0463

== ENCOUNTER 2017-09-14 16:25 | Inpatient (IN) | payer OTHER, MEDICARE, SELFPAY ==
[2017-09-14 17:13] VITALS: BMI 18.5
[2017-09-14 17:47] VITALS: BP 159/71; PULSE 94; RESP 28; TEMP 36.9; O2SAT 90
--- NOTE | 2017-09-14 18:06 | NURSING ---
Pt arrived from [facility] at 1610 via hospital bed.
--- NOTE | 2017-09-14 18:07 | NURSING ---
Symbicort, Pulmicort, Spiriva orders adjusted per Raúl in pharm and Dr Vargas.
[2017-09-14] MEDS: Budesonide Respules 0.5 MG/2 ML AMPUL.NEB. INHALATION (18:50)
[2017-09-14] MEDS: Ipratropium/Albuterol Sulfate 3 ML AMPUL.NEB INHALATION ×2 (18:50→23:54)
[2017-09-14 18:55] VITALS: PULSE 94; RESP 18; O2SAT 95
[2017-09-14 19:40] VITALS: PULSE 96; O2SAT 97
--- NOTE | 2017-09-14 20:08 | PCM.HP.STD ---
Problem List (1) Anxiety Status: Chronic (2) Acne rosacea Status: Chronic (3) Hypokalemia Status: Chronic (4) Hyponatremia Status: Acute (5) COPD exacerbation Status: Acute (6) BPH (benign prostatic hyperplasia) Status: Chronic (7) Acute and chronic respiratory failure Status: Acute Qualifiers: (8) COLD (chronic obstructive lung disease) Status: Chronic History of Present Illness Date of Admission: 09/14/17 Chief Complaint: Here for rehabilitation, strengthening, prior to dischage home with significant other. The patient is a 77 year old Male with below past medical history presented to [facility] Emergency Department 09/07/2017 with shortness of breath. 09/07/2017 EKG sinus tachycardia, left axis deviation, low voltage QRS. 09/07/2017 Chest X-ray COPD with new air trapping, no infiltrate. He sees a pulmonary nurse practitioner named Kylie at [facility]. Sudden shortness of breath, breathing worse last several months. Several courses of antibiotics, steroids. Oxygen dependent. Cough with yellow white phlegm. WBC 13.2, Hemoglobin 14, Hematocrit 45, Platelet 193. BMP okay, BNP 43, Troponin 0.02. Duoneb, Albuterol, Levaquin, Solu-Medrol given. 09/07/2017 Admit to Hospital. Shortness of breath, rhinorrhea. Respiratory panel negative, rapid influenza negative. Duoneb, Albuterol, IV Solu-Medrol, IV Levaquin. Anxiety treated with Ativan. BPH with urinary retention treated with indwelling maurice catheter. Hyponatremia resolved with IV hydration. 09/14/2017 Admit to TCU for rehabilitation, strengthening, prior to discharge home with significant other. Past Medical History Past Medical History (Chronic Problems): Chronic Problems BPH (benign prostatic hyperplasia) (Chronic) Anxiety (Chronic) Acne rosacea (Chronic) Hypokalemia (Chronic) Spontaneous pneumothorax (Chronic) COLD (chronic obstructive lung disease) (Chronic) Allergies atorvastatin [From Lipitor] Allergy (Verified 09/07/17 17:34) Other indomethacin [From Indocin] Allergy (Verified 09/07/17 17:34) Other primidone Allergy (Verified 09/07/17 17:34) Other sertraline [From Zoloft] Allergy (Verified 09/07/17 17:34) Other Home Medications: Ambulatory Orders Medication Instructions Recorded Budesonide/Formoterol 160/4.5 2 puff INHALATION BID 09/07/17 [Symbicort 160/4.5 Mcg Inhaler (SP)] Cetirizine HCl [Allergy Relief] 10 mg PO DAILY 09/07/17 Ergocalciferol [Vitamin D] 50,000 unit PO QMONTH 09/07/17 Folic Acid 1 mg PO DAILY@0800 09/07/17 Furosemide [Lasix] 20 mg PO DAILY 09/07/17 Lycopene 10 mg PO QODAY 09/07/17 Potassium Chloride 10 meq PO DAILY 09/07/17 Selenium 200 mcg PO QODAY 09/07/17 Tamsulosin HCl [Flomax] 0.4 mg PO DAILY 09/07/17 Tiotropium [place] [Spiriva 18 MCG] 1 puff INHALATION DAILY 09/07/17 Aspirin [Aspirin, Baby] 81 mg PO DAILY@0800 09/08/17 Acetaminophen [Tylenol Tablet] 650 mg PO Q6H PRN PRN tablet 09/14/17 Albuterol Aerosols [Ventolin 2.5 mg INHALATION Q2H PRN PRN 09/14/17 Aerosols] vial.neb. Bisacodyl [Dulcolax] 5 mg PO DAILY PRN PRN tablet 09/14/17 Ensure Enlive 120 ml PO 4X/DAY 09/14/17 Guaifenesin [Mucinex] 1,200 mg PO BID 09/14/17 Ipratropium/Albuterol Sulfate 3 ml INHALATION Q6H.RT 09/14/17 [Duoneb] Lorazepam [Ativan] 0.5 mg PO TID #20 tab 09/14/17 Pantoprazole Sodium [Protonix] 40 mg PO DAILY 09/14/17 Prednisone 10 mg PO UD 09/14/17 Surgical History: adenoidectomy, appendectomy, tonsillectomy Psychiatric History: Anxiety Lives: Spouse/ Significant Other - [place] male partner. Smoking Status: Former smoker Tobacco Use: Non-smoker Alcohol: None Drugs: None - *Family History Maternal History Items: Heart Disease Paternal History Items: Heart Disease Review of Systems Constitutional: Denies: Chills, Fever, Weight Change HEENT: Denies: Head Aches, Sinus Congestion, Sinus Drainage Cardiovascular: Denies: Chest Pain, Palpitations Respiratory: Reports: Shortness of Breath, Shortness of breath at rest, Shortness of breath upon exertion, Wheezing. Denies: Cough, Sputum production Gastrointestinal: Denies: Abdominal Pain, Nausea, Vomiting Genitourinary: Denies: Dysuria Musculoskeletal: Denies: Joint Pain, Joint Tenderness Skin: Denies: Rash, Wounds Neurological: Denies: Numbness, Tingling, Focal weakness Psychiatric: Reports: Anxiety. Denies: Depression, Homicidal Ideations, Suicidal Ideations Hematologic/ Lymphatic: Denies: Easy Bruising, Easy Bleeding VTE Information - Inpt Only VTE Present on Admission: No VTE Mechan Device Prophylaxis: Knee High MARCIANO Hose VTE Pharm Prophylaxis ordered?: Yes Patient Problems: Active and Suspected Problems Hyponatremia (Acute) - Physical Exam General: Alert, Oriented x3, Cooperative HEENT: Atraumatic, PERRLA, EOMI, Normocephalic Neck: Supple, No JVD, Negative Carotid Bruits Lungs: Normal air movement, Short of Breath, Wheezes Cardiovascular: Regular rate, No murmurs Abdomen: Bowel Sounds Present, Soft, Non Tender Extremities: No edema, Capillary Refill Less than 3 Seconds Skin: No rashes, No breakdown Musculoskeletal: No Tenderness to Palpation of Joints or Extremities Neurological: Cranial nerves II-XII grossly intact Psych/Mental Status: Normal Affect, Appropriate Vital Signs Temp Pulse Resp BP Pulse Ox 98.4 F 94 18 159/71 H 95 09/14/17 17:47 09/14/17 18:55 09/14/17 18:55 09/14/17 17:47 09/14/17 18:55 Oxygen Flow Rate 4 Oxygen Delivery Method Nasal Cannula Weight: 59.466 kg Body Mass Index (BMI) 18.5 Intake and Output for Last 24 Hours 09/12/17 09/13/17 09/14/17 23:59 23:59 23:59 Intake Total 240 / 240 Balance 240 / 240 Assessment/Plan Active and Suspected Problems Hyponatremia (Acute) 77 year old male with below past medical history significant for oxygen dependent COPD for 8 years, hospitalized for acute on chronic respiratory failure secondary to COPD exacerbation, complicated by anxiety, admitted to TCU with debility, here for rehabilitation, strengthening, prior to discharge home with significant other. Debility - PT/OT. Pain - Tylenol 1000MG Q8H PRN mild pain. Bowel - Miralax 17GM daily, Senna/colace 1 tablet BID, Dulcolax 10MG PO daily PRN. Pneumonia vaccination - Administer Prevnar 13 and/or Pneumovax 23 as necessary. DVT prophylaxis - Lovenox 40MG sc daily. COPD - Advair 500/50 1 puff twice daily, Spiriva 18MCG daily, Duoneb 3ML Q6HRT, Albuterol 2.5MG Q2H PRN, oxygen per NC, Prednisone taper, Add Daliresp 500MCG daily. CV prophylaxis - Aspirin 81MG daily. Nutrition - Ensure Enlive 120ML 4x/day. Vitamin D deficiency - D2 50,000 units per month. Folate deficiency - Folic Acid 1MG daily. Edema - Lasix 20MG daily. Congestion Mucinex 1200MG BID. Allergic rhinitis - Loratadine 10MG daily. Anxiety - Rx Paroxetine 40MG QHS, increase Ativan to 1MG PO Q6H. GERD - Pantoprazole 40MG daily. Hypokalemia - K-dur 10MEQ daily. BPH/urinary retention - Tamsulosin 0.4MG QHS, voiding trials, maurice removal per protocol. End of Life - Resident is near end of life, will try to keep him as comfortable as possible while doing therapy, consider hospice care if there is no improvement.
[2017-09-14] MEDS: LORazepam 0.5 MG Tablet PO (20:12)
[2017-09-14] MEDS: Tamsulosin HCl 0.4 MG Capsule PO (20:13)
[2017-09-14] MEDS: guaiFENesin 1,200 MG Tablet 1200 MG PO (20:13)
--- NOTE | 2017-09-14 20:19 | HP.PCM_ITS ---
Problem List (1) Anxiety Status: Chronic (2) Acne rosacea Status: Chronic (3) Hypokalemia Status: Chronic (4) Hyponatremia Status: Acute (5) COPD exacerbation Status: Acute (6) BPH (benign prostatic hyperplasia) Status: Chronic (7) Acute and chronic respiratory failure Status: Acute Qualifiers: (8) COLD (chronic obstructive lung disease) Status: Chronic History of Present Illness Date of Admission: 09/14/17 Chief Complaint: Here for rehabilitation, strengthening, prior to dischage home with significant other. The patient is a 77 year old Male with below past medical history presented to [facility] Emergency Department 09/07/2017 with shortness of breath. 09/07/2017 EKG sinus tachycardia, left axis deviation, low voltage QRS. 09/07/2017 Chest X-ray COPD with new air trapping, no infiltrate. He sees a pulmonary nurse practitioner named Kylie at [facility]. Sudden shortness of breath, breathing worse last several months. Several courses of antibiotics, steroids. Oxygen dependent. Cough with yellow white phlegm. WBC 13.2, Hemoglobin 14, Hematocrit 45, Platelet 193. BMP okay, BNP 43, Troponin 0.02. Duoneb, Albuterol, Levaquin, Solu-Medrol given. 09/07/2017 Admit to Hospital. Shortness of breath, rhinorrhea. Respiratory panel negative, rapid influenza negative. Duoneb, Albuterol, IV Solu-Medrol, IV Levaquin. Anxiety treated with Ativan. BPH with urinary retention treated with indwelling maurice catheter. Hyponatremia resolved with IV hydration. 09/14/2017 Admit to TCU for rehabilitation, strengthening, prior to discharge home with significant other. Past Medical History Past Medical History (Chronic Problems): Chronic Problems BPH (benign prostatic hyperplasia) (Chronic) Anxiety (Chronic) Acne rosacea (Chronic) Hypokalemia (Chronic) Spontaneous pneumothorax (Chronic) COLD (chronic obstructive lung disease) (Chronic) Allergies atorvastatin [From Lipitor] Allergy (Verified 09/07/17 17:34) Other indomethacin [From Indocin] Allergy (Verified 09/07/17 17:34) Other primidone Allergy (Verified 09/07/17 17:34) Other sertraline [From Zoloft] Allergy (Verified 09/07/17 17:34) Other Home Medications: Ambulatory Orders Medication Instructions Recorded Budesonide/Formoterol 160/4.5 2 puff INHALATION BID 09/07/17 [Symbicort 160/4.5 Mcg Inhaler (SP)] Cetirizine HCl [Allergy Relief] 10 mg PO DAILY 09/07/17 Ergocalciferol [Vitamin D] 50,000 unit PO QMONTH 09/07/17 Folic Acid 1 mg PO DAILY@0800 09/07/17 Furosemide [Lasix] 20 mg PO DAILY 09/07/17 Lycopene 10 mg PO QODAY 09/07/17 Potassium Chloride 10 meq PO DAILY 09/07/17 Selenium 200 mcg PO QODAY 09/07/17 Tamsulosin HCl [Flomax] 0.4 mg PO DAILY 09/07/17 Tiotropium [place] [Spiriva 18 MCG] 1 puff INHALATION DAILY 09/07/17 Aspirin [Aspirin, Baby] 81 mg PO DAILY@0800 09/08/17 Acetaminophen [Tylenol Tablet] 650 mg PO Q6H PRN PRN tablet 09/14/17 Albuterol Aerosols [Ventolin 2.5 mg INHALATION Q2H PRN PRN 09/14/17 Aerosols] vial.neb. Bisacodyl [Dulcolax] 5 mg PO DAILY PRN PRN tablet 09/14/17 Ensure Enlive 120 ml PO 4X/DAY 09/14/17 Guaifenesin [Mucinex] 1,200 mg PO BID 09/14/17 Ipratropium/Albuterol Sulfate 3 ml INHALATION Q6H.RT 09/14/17 [Duoneb] Lorazepam [Ativan] 0.5 mg PO TID #20 tab 09/14/17 Pantoprazole Sodium [Protonix] 40 mg PO DAILY 09/14/17 Prednisone 10 mg PO UD 09/14/17 Surgical History: adenoidectomy, appendectomy, tonsillectomy Psychiatric History: Anxiety Lives: Spouse/ Significant Other - [place] male partner. Smoking Status: Former smoker Tobacco Use: Non-smoker Alcohol: None Drugs: None - *Family History Maternal History Items: Heart Disease Paternal History Items: Heart Disease Review of Systems Constitutional: Denies: Chills, Fever, Weight Change HEENT: Denies: Head Aches, Sinus Congestion, Sinus Drainage Cardiovascular: Denies: Chest Pain, Palpitations Respiratory: Reports: Shortness of Breath, Shortness of breath at rest, Shortness of breath upon exertion, Wheezing. Denies: Cough, Sputum production Gastrointestinal: Denies: Abdominal Pain, Nausea, Vomiting Genitourinary: Denies: Dysuria Musculoskeletal: Denies: Joint Pain, Joint Tenderness Skin: Denies: Rash, Wounds Neurological: Denies: Numbness, Tingling, Focal weakness Psychiatric: Reports: Anxiety. Denies: Depression, Homicidal Ideations, Suicidal Ideations Hematologic/ Lymphatic: Denies: Easy Bruising, Easy Bleeding VTE Information - Inpt Only VTE Present on Admission: No VTE Mechan Device Prophylaxis: Knee High MARCIANO Hose VTE Pharm Prophylaxis ordered?: Yes Patient Problems: Active and Suspected Problems Hyponatremia (Acute) - Physical Exam General: Alert, Oriented x3, Cooperative HEENT: Atraumatic, PERRLA, EOMI, Normocephalic Neck: Supple, No JVD, Negative Carotid Bruits Lungs: Normal air movement, Short of Breath, Wheezes Cardiovascular: Regular rate, No murmurs Abdomen: Bowel Sounds Present, Soft, Non Tender Extremities: No edema, Capillary Refill Less than 3 Seconds Skin: No rashes, No breakdown Musculoskeletal: No Tenderness to Palpation of Joints or Extremities Neurological: Cranial nerves II-XII grossly intact Psych/Mental Status: Normal Affect, Appropriate Vital Signs Temp Pulse Resp BP Pulse Ox 98.4 F 94 18 159/71 H 95 09/14/17 17:47 09/14/17 18:55 09/14/17 18:55 09/14/17 17:47 09/14/17 18:55 Oxygen Flow Rate 4 Oxygen Delivery Method Nasal Cannula Weight: 59.466 kg Body Mass Index (BMI) 18.5 Intake and Output for Last 24 Hours 09/12/17 09/13/17 09/14/17 23:59 23:59 23:59 Intake Total 240 / 240 Balance 240 / 240 Assessment/Plan Active and Suspected Problems Hyponatremia (Acute) 77 year old male with below past medical history significant for oxygen dependent COPD for 8 years, hospitalized for acute on chronic respiratory failure secondary to COPD exacerbation, complicated by anxiety, admitted to TCU with debility, here for rehabilitation, strengthening, prior to discharge home with significant other. * Debility - PT/OT. * Pain - Tylenol 1000MG Q8H PRN mild pain. * Bowel - Miralax 17GM daily, Senna/colace 1 tablet BID, Dulcolax 10MG PO daily PRN. * Pneumonia vaccination - Administer Prevnar 13 and/or Pneumovax 23 as necessary. * DVT prophylaxis - Lovenox 40MG sc daily. * COPD - Advair 500/50 1 puff twice daily, Spiriva 18MCG daily, Duoneb 3ML Q6HRT , Albuterol 2.5MG Q2H PRN, oxygen per NC, Prednisone taper, Add Daliresp 500MCG daily. * CV prophylaxis - Aspirin 81MG daily. * Nutrition - Ensure Enlive 120ML 4x/day. * Vitamin D deficiency - D2 50,000 units per month. * Folate deficiency - Folic Acid 1MG daily. * Edema - Lasix 20MG daily. * Congestion Mucinex 1200MG BID. * Allergic rhinitis - Loratadine 10MG daily. * Anxiety - Rx Paroxetine 40MG QHS, increase Ativan to 1MG PO Q6H. * GERD - Pantoprazole 40MG daily. * Hypokalemia - K-dur 10MEQ daily. * BPH/urinary retention - Tamsulosin 0.4MG QHS, voiding trials, maurice removal per protocol. * End of Life - Resident is near end of life, will try to keep him as comfortable as possible while doing therapy, consider hospice care if there is no improvement.
--- NOTE | 2017-09-14 20:21 | NURSING ---
Pt repositioned on gel cushion in recliner chair. Currently watching tv, given hs meds including 6p dose of scheduled ativan. Pt pleased with this. Maria catheter emptied for 2000cc clear yellow urine. Continuing to monitor, anticipate needs.
--- NOTE | 2017-09-14 22:35 | NURSING ---
Code status discussed with pt at this time. Pt wishes to be DNR-CC. Purple bracelet applied.
[2017-09-14] MEDS: LORazepam 0.5 MG Tablet 1 MG PO (23:47)
[2017-09-14 23:55] VITALS: PULSE 69; RESP 18
[2017-09-15] VITALS (8 sets, daily range): BP systolic 104; BP diastolic 61; PULSE 73–92; RESP 14–24; TEMP 36.8; O2SAT 97–99
[2017-09-15] MEDS: Albuterol 2.5 MG/3 ML VIAL.NEB. INHALATION ×3 (03:22→19:28)
[2017-09-15 05:59] LABS: Absolute Lymphocyte Count 1.16 X10^3/ul (0.83-4.51); Absolute Neutrophil Count 6.5 X10^3/uL (2.0-7.7); Basophil# 0.01 X10^3/uL; Basophil% 0.1 % (0-1); Eosinophil# 0.09 X10^3/uL; Eosinophils% 1.1 % (0-5); Hematocrit 42.5 % (40-54); Hemoglobin 13.6 g/dl (13.0-16.5); Lymphocyte # 1.16 X10^3/ul (4.0); Lymphocyte % 13.6 % (19-41); Mean Corpuscular Hgb 29.5 pg (27.0-32.0); Mean Corpuscular Volume 92.2 fL (80-94); Mean Platelet Vol. 9.5 fl (6.2-12.0); Monocyte# 0.66 X10^3/uL; Monocyte% 7.8 % (0-10); Neutrophil # 6.52 X10^3/uL (2.7-7.7); Neutrophil % 76.7 % (47-70); Platelet Count 152 K/mm3 (150-450); RBC Distribution Width CV 13.2 % (11.6-14.6); RBC Distribution Width SD 43.4 fl (35.1-43.9); Red Blood Count 4.61 M/mm3 (4.6-6.2); White Blood Count 8.5 K/mm3 (4.4-11.0)
[2017-09-15 06:01] LABS: POSITIVE COUNT NO; POSITIVE DIFFERENTIAL NO; POSITIVE MORPHOLOGY NO
[2017-09-15 06:22] LABS: Anion Gap 6 (5-15); BUN 27 mg/dL (7-18); BUN/Creat Ratio 25.7 RATIO (10-20); Calcium,Total 8.3 mg/dL (8.5-10.1); Chloride 90 mmol/L (98-107); Creatinine, Serum 1.05 mg/dL (0.70-1.30); EST Glomerular Filtration Rate 72 mL/min (>60); Est Glom Filt Rate - Afr Amer 88 mL/min (>60); Estimated Creatinine Clearance 47.98 ml/min; Glucose 87 mg/dL (74-106); Potassium 4.1 mmol/L (3.5-5.1); Sodium Level 136 mmol/L (136-145)
[2017-09-15] MEDS: LORazepam 0.5 MG Tablet 1 MG PO ×4 (06:29→23:34)
[2017-09-15] MEDS: Loratadine 10 MG Tablet PO (06:30)
[2017-09-15] MEDS: Menthol/Lanolin/Calamine/Znox 113 GM Tube 1 APPLIC TOPICAL ×2 (06:30→17:19)
[2017-09-15] MEDS: Furosemide 20 MG Tablet PO (06:31)
[2017-09-15] MEDS: Enoxaparin 40 MG/0.4 ML Syringe SC (06:31)
[2017-09-15] MEDS: guaiFENesin 1,200 MG Tablet 1200 MG PO ×2 (06:32→17:10)
[2017-09-15] MEDS: Pantoprazole Sodium 40 MG Tablet PO (06:32)
[2017-09-15] MEDS: Ipratropium/Albuterol Sulfate 3 ML AMPUL.NEB INHALATION ×3 (07:33→22:48)
[2017-09-15] MEDS: Folic Acid 1 MG Tablet PO (07:51)
[2017-09-15] MEDS: Aspirin 81 MG TAB.CHEW PO (07:51)
[2017-09-15] MEDS: Tuberculin,Purif.prot.deriv. 50 TU/ML Vial 5 ML ID (10:11)
[2017-09-15] MEDS: Tamsulosin HCl 0.4 MG Capsule PO (17:10)
--- NOTE | 2017-09-15 20:27 | PCA ---
Patient but his call light on and wanted the gel cushion that goes in the wheelchair placed under his bottom in bed, i said i think a pillow would be best to use while your in bed he demanded that i use the gel cushion that goes in the wheelchair patient placed it underneath himself; RN's notified
[2017-09-16] VITALS (8 sets, daily range): BP systolic 113–115; BP diastolic 63–67; PULSE 71–82; RESP 16–21; TEMP 36.3–36.6; O2SAT 95–100
[2017-09-16] MEDS: Albuterol 2.5 MG/3 ML VIAL.NEB. INHALATION ×5 (03:13→19:25)
[2017-09-16] MEDS: Furosemide 20 MG Tablet PO (06:48)
[2017-09-16] MEDS: Loratadine 10 MG Tablet PO (06:48)
[2017-09-16] MEDS: Menthol/Lanolin/Calamine/Znox 113 GM Tube 1 APPLIC TOPICAL ×2 (06:48→17:12)
[2017-09-16] MEDS: Pantoprazole Sodium 40 MG Tablet PO (06:49)
[2017-09-16] MEDS: Enoxaparin 40 MG/0.4 ML Syringe SC (06:49)
[2017-09-16] MEDS: guaiFENesin 1,200 MG Tablet 1200 MG PO ×2 (06:50→17:11)
[2017-09-16] MEDS: LORazepam 1 MG Tablet PO ×4 (06:56→23:52)
--- NOTE | 2017-09-16 06:58 | NURSING ---
maurice removed as per orders. 175ml emptied from maurice
[2017-09-16] MEDS: Aspirin 81 MG TAB.CHEW PO (08:06)
[2017-09-16] MEDS: Folic Acid 1 MG Tablet PO (08:06)
--- NOTE | 2017-09-16 10:56 | CASEMGMT ---
Insurance Clinical information faxed. Pending continued stay approval at this time. Auth#[id number] Bia CHURCH, [employer]
--- NOTE | 2017-09-16 12:22 | PCM.PN.RX ---
<Suleman Cardoza - Last Filed: 09/16/17 12:22> Progress Note - Pharmacy Subjective: TCU Admission Objective: Allergies atorvastatin [From Lipitor] Allergy (Verified 09/07/17 17:34) Other indomethacin [From Indocin] Allergy (Verified 09/07/17 17:34) Other primidone Allergy (Verified 09/07/17 17:34) Other sertraline [From Zoloft] Allergy (Verified 09/07/17 17:34) Other Home Medications Medication Instructions Recorded Budesonide/Formoterol 160/4.5 2 puff INHALATION BID 09/07/17 [Symbicort 160/4.5 Mcg Inhaler (SP)] Cetirizine HCl [Allergy Relief] 10 mg PO DAILY 09/07/17 Ergocalciferol [Vitamin D] 50,000 unit PO QMONTH 09/07/17 Folic Acid 1 mg PO DAILY@0800 09/07/17 Furosemide [Lasix] 20 mg PO DAILY 09/07/17 Lycopene 10 mg PO QODAY 09/07/17 Potassium Chloride 10 meq PO DAILY 09/07/17 Selenium 200 mcg PO QODAY 09/07/17 Tamsulosin HCl [Flomax] 0.4 mg PO DAILY 09/07/17 Tiotropium [place] [Spiriva 18 MCG] 1 puff INHALATION DAILY 09/07/17 Aspirin [Aspirin, Baby] 81 mg PO DAILY@0800 09/08/17 Acetaminophen [Tylenol Tablet] 650 mg PO Q6H PRN PRN tablet 09/14/17 Albuterol Aerosols [Ventolin 2.5 mg INHALATION Q2H PRN PRN 09/14/17 Aerosols] vial.neb. Bisacodyl [Dulcolax] 5 mg PO DAILY PRN PRN tablet 09/14/17 Ensure Enlive 120 ml PO 4X/DAY 09/14/17 Guaifenesin [Mucinex] 1,200 mg PO BID 09/14/17 Ipratropium/Albuterol Sulfate 3 ml INHALATION Q6H.RT 09/14/17 [Duoneb] Lorazepam [Ativan] 0.5 mg PO TID #20 tab 09/14/17 Pantoprazole Sodium [Protonix] 40 mg PO DAILY 09/14/17 Prednisone 10 mg PO UD 09/14/17 Current Medications Generic Name Dose Route Start Last Admin Trade Name Freq PRN Reason Stop Dose Admin Acetaminophen 1,000 mg 09/14/17 20:34 Tylenol PO Q8H PRN MILD PAIN (1-09/24) Albuterol Sulfate 2.5 mg 09/14/17 16:52 09/16/17 10:41 Ventolin Aerosols INHALATION 2.5 mg Q2H PRN PRN Administration SHORTNESS OF BREATH Albuterol/Ipratropium 3 ml 09/14/17 17:00 09/15/17 22:48 Duoneb INHALATION 3 ml Q6H.RT DANIELA Administration Aspirin 81 mg 09/15/17 08:00 09/16/17 08:06 Aspirin, Baby PO 81 mg DAILY@0800 [facility] Administration Bisacodyl 10 mg 09/14/17 20:35 Dulcolax PO DAILY PRN PRN Constipation Calamine/Phenol 1 applic 09/15/17 06:00 09/16/17 06:48 Calmoseptine Ointment TOPICAL 1 applicatio BID [facility] Administration Protocol Enoxaparin Sodium 40 mg 09/15/17 06:00 09/16/17 06:49 Lovenox SC 40 mg DAILY@0600 [facility] Administration Ergocalciferol 50,000 unit 10/06/17 08:00 Vitamin D PO QMONTH DANIELA Folic Acid 1 mg 09/15/17 08:00 09/16/17 08:06 Folic Acid PO 1 mg DAILY@0800 [facility] Administration Furosemide 20 mg 09/15/17 06:00 09/16/17 06:48 Lasix PO 20 mg DAILY DANIELA Administration Guaifenesin 1,200 mg 09/14/17 18:00 09/16/17 06:50 Mucinex PO 1,200 mg BID DANIELA Administration Loratadine 10 mg 09/15/17 06:00 09/16/17 06:48 Claritin PO 10 mg DAILY [facility] Administration Lorazepam 1 mg 09/16/17 06:45 09/16/17 11:19 Ativan PO 1 mg Q6 DANIELA Administration Nutritional Formula (Lactose Free) 120 ml 09/14/17 22:00 09/16/17 11:20 Ensure Enlive PO 120 ml 4X/DAY DANIELA Administration Pantoprazole Sodium 40 mg 09/15/17 06:00 09/16/17 06:49 Protonix PO 40 mg DAILY DANIELA Administration Paroxetine HCl 40 mg 09/14/17 22:00 09/15/17 21:48 Paxil PO 40 mg QHS DANIELA Administration Polyethylene Glycol 17 gm 09/15/17 06:00 09/16/17 06:49 Miralax PO Not Given DAILY [facility] Potassium Chloride 10 meq 09/15/17 08:00 09/16/17 08:06 K-Dur PO 10 meq DAILY@0800 DANIELA Administration Prednisone 40 mg 09/15/17 08:00 09/16/17 08:06 Prednisone PO 09/27/17 07:59 40 mg DAILY@0800 ADNIELA Administration Taper Fluticasone/Salmeterol 1 puff 09/15/17 06:00 09/16/17 06:45 Advair 250/50 Mcg Diskus INHALATION 1 puff BID [facility] Administration Senna/Docusate Sodium 1 tablet 09/15/17 06:00 09/16/17 06:50 Senokot-S, Gaye-Colace PO Not Given BID [facility] Tamsulosin HCl 0.4 mg 09/14/17 17:30 09/15/17 17:10 Flomax PO 0.4 mg DAILY@1730 [facility] Administration Tiotropium [place] 1 puff 09/15/17 06:00 09/16/17 06:45 Spiriva 18 Mcg INHALATION 1 puff DAILY DANIELA Administration Tuberculin PPD 5 tu 09/22/17 10:00 Tubersol, Aplisol, Ppd ID 09/22/17 10:01 X1 ONE Problem List Anxiety (Chronic) Acne rosacea (Chronic) Hypokalemia (Chronic) Hyponatremia (Acute) Vital Signs Temp Pulse Resp BP Pulse Ox 98.2 F 80 21 H 104/61 95 09/15/17 15:06 09/16/17 10:43 09/16/17 10:43 09/15/17 15:06 09/16/17 09:14 Oxygen Flow Rate 3 Oxygen Delivery Method Nasal Cannula Weight: 59.466 kg Body Mass Index (BMI) 18.5 Sodium 136 mmol/L (136-145) 09/15/17 05:05 Potassium 4.1 mmol/L (3.5-5.1) 09/15/17 05:05 Chloride 90 mmol/L (98-107) L 09/15/17 05:05 Carbon Dioxide 40.0 mmol/L (21.0-32.0) H 09/15/17 05:05 Anion Gap 6 (5-15) 09/15/17 05:05 BUN 27 mg/dL (7-18) H 09/15/17 05:05 Creatinine 1.05 mg/dL (0.70-1.30) 09/15/17 05:05 Est GFR (MDRD) Af Amer 88 mL/min (>60) 09/15/17 05:05 Est GFR (MDRD) Non-Af 72 mL/min (>60) 09/15/17 05:05 BUN/Creatinine Ratio 25.7 RATIO (10-20) H 09/15/17 05:05 Glucose 87 mg/dL (74-106) 09/15/17 05:05 Assessment/Plan: 1) Pain APAP for mild pain. Continue to monitor prn medication use, daily pain scores. * 2) Pulm Tiotropium inh daily, prednisone until 09/27, loratadine, ipratropium/albuterol scheduled, guaifenesin, Advair inh, albuterol prn. Continue to monitor prn medication use, for sob. * Duplication of therapy with Duonebs and Advair and tiotropium. Please d/c Duoneb aerosols. 3) Edema Furosemide/KCl daily. BUN/SCr at baseline, K wnl. Continue to monitor renal function, electrolytes. 4) DVT PPx Enoxaparin daily. Continue to monitor for s/s bleeding/clot. 5) Nutrition Ensure, D, folic acid. Continue to monitor clinically. 6) BPH Tamsulosin daily. Continue to monitor symptoms. 7) GI Pantoprazole daily. Continue to monitor s/s GI distress. Psychotropic Medications: 8) Depression/Anxiety Paroxetine at HS, lorazepam scheduled. Continue to monitor s/s depression. Unnecessary Medications: None Bowel Regimen: 9) Senna/s, PEG, prn bisacodyl. Continue to monitor prn medication use, for constipation/diarrhea. Date of Note:: 09/16/17 - Provider Comments Provider responsibility: Provider responsible to enter orders to implement recommendations <Pascual Vargas Chi - Last Filed: 09/16/17 13:57> Progress Note - Pharmacy Subjective: [] Objective: Allergies atorvastatin [From Lipitor] Allergy (Verified 09/07/17 17:34) Other indomethacin [From Indocin] Allergy (Verified 09/07/17 17:34) Other primidone Allergy (Verified 09/07/17 17:34) Other sertraline [From Zoloft] Allergy (Verified 09/07/17 17:34) Other Home Medications Medication Instructions Recorded Budesonide/Formoterol 160/4.5 2 puff INHALATION BID 09/07/17 [Symbicort 160/4.5 Mcg Inhaler (SP)] Cetirizine HCl [Allergy Relief] 10 mg PO DAILY 09/07/17 Ergocalciferol [Vitamin D] 50,000 unit PO QMONTH 09/07/17 Folic Acid 1 mg PO DAILY@0800 09/07/17 Furosemide [Lasix] 20 mg PO DAILY 09/07/17 Lycopene 10 mg PO QODAY 09/07/17 Potassium Chloride 10 meq PO DAILY 09/07/17 Selenium 200 mcg PO QODAY 09/07/17 Tamsulosin HCl [Flomax] 0.4 mg PO DAILY 09/07/17 Tiotropium [place] [Spiriva 18 MCG] 1 puff INHALATION DAILY 09/07/17 Aspirin [Aspirin, Baby] 81 mg PO DAILY@0800 09/08/17 Acetaminophen [Tylenol Tablet] 650 mg PO Q6H PRN PRN tablet 09/14/17 Albuterol Aerosols [Ventolin 2.5 mg INHALATION Q2H PRN PRN 09/14/17 Aerosols] vial.neb. Bisacodyl [Dulcolax] 5 mg PO DAILY PRN PRN tablet 09/14/17 Ensure Enlive 120 ml PO 4X/DAY 09/14/17 Guaifenesin [Mucinex] 1,200 mg PO BID 09/14/17 Ipratropium/Albuterol Sulfate 3 ml INHALATION Q6H.RT 09/14/17 [Duoneb] Lorazepam [Ativan] 0.5 mg PO TID #20 tab 09/14/17 Pantoprazole Sodium [Protonix] 40 mg PO DAILY 09/14/17 Prednisone 10 mg PO UD 09/14/17 Current Medications Generic Name Dose Route Start Last Admin Trade Name Freq PRN Reason Stop Dose Admin Acetaminophen 1,000 mg 09/14/17 20:34 Tylenol PO Q8H PRN MILD PAIN (1-3/10) Albuterol Sulfate 2.5 mg 09/14/17 16:52 09/16/17 10:41 Ventolin Aerosols INHALATION 2.5 mg Q2H PRN PRN Administration SHORTNESS OF BREATH Albuterol/Ipratropium 3 ml 09/14/17 17:00 09/15/17 22:48 Duoneb INHALATION 3 ml Q6H.RT DANIELA Administration Aspirin 81 mg 09/15/17 08:00 09/16/17 08:06 Aspirin, Baby PO 81 mg DAILY@0800 [facility] Administration Bisacodyl 10 mg 09/14/17 20:35 Dulcolax PO DAILY PRN PRN Constipation Calamine/Phenol 1 applic 09/15/17 06:00 09/16/17 06:48 Calmoseptine Ointment TOPICAL 1 applicatio BID [facility] Administration Protocol Enoxaparin Sodium 40 mg 09/15/17 06:00 09/16/17 06:49 Lovenox SC 40 mg DAILY@0600 [facility] Administration Ergocalciferol 50,000 unit 10/06/17 08:00 Vitamin D PO QMONTH [facility] Folic Acid 1 mg 09/15/17 08:00 09/16/17 08:06 Folic Acid PO 1 mg DAILY@0800 [facility] Administration Furosemide 20 mg 09/15/17 06:00 09/16/17 06:48 Lasix PO 20 mg DAILY [facility] Administration Guaifenesin 1,200 mg 09/14/17 18:00 09/16/17 06:50 Mucinex PO 1,200 mg BID [facility] Administration Loratadine 10 mg 09/15/17 06:00 09/16/17 06:48 Claritin PO 10 mg DAILY [facility] Administration Lorazepam 1 mg 09/16/17 06:45 09/16/17 11:19 Ativan PO 1 mg Q6 [facility] Administration Nutritional Formula (Lactose Free) 120 ml 09/14/17 22:00 09/16/17 11:20 Ensure Enlive PO 120 ml 4X/DAY [facility] Administration Pantoprazole Sodium 40 mg 09/15/17 06:00 09/16/17 06:49 Protonix PO 40 mg DAILY [facility] Administration Paroxetine HCl 40 mg 09/14/17 22:00 09/15/17 21:48 Paxil PO 40 mg QHS DANIELA Administration Polyethylene Glycol 17 gm 09/15/17 06:00 09/16/17 06:49 Miralax PO Not Given DAILY [facility] Potassium Chloride 10 meq 09/15/17 08:00 09/16/17 08:06 K-Dur PO 10 meq DAILY@0800 DANIELA Administration Prednisone 40 mg 09/15/17 08:00 09/16/17 08:06 Prednisone PO 09/27/17 07:59 40 mg DAILY@0800 DANIELA Administration Taper Fluticasone/Salmeterol 1 puff 09/15/17 06:00 09/16/17 06:45 Advair 250/50 Mcg Diskus INHALATION 1 puff BID [facility] Administration Senna/Docusate Sodium 1 tablet 09/15/17 06:00 09/16/17 06:50 Senokot-S, Gaye-Colace PO Not Given BID [facility] Tamsulosin HCl 0.4 mg 09/14/17 17:30 09/15/17 17:10 Flomax PO 0.4 mg DAILY@1730 [facility] Administration Tiotropium [place] 1 puff 09/15/17 06:00 09/16/17 06:45 Spiriva 18 Mcg INHALATION 1 puff DAILY [facility] Administration Tuberculin PPD 5 tu 09/22/17 10:00 Tubersol, Aplisol, Ppd ID 09/22/17 10:01 X1 ONE Problem List Anxiety (Chronic) Acne rosacea (Chronic) Hypokalemia (Chronic) Hyponatremia (Acute) Vital Signs Temp Pulse Resp BP Pulse Ox 98.2 F 80 21 H 104/61 95 09/15/17 15:06 09/16/17 10:43 09/16/17 10:43 09/15/17 15:06 09/16/17 09:14 Oxygen Flow Rate 3 Oxygen Delivery Method Nasal Cannula Weight: 59.466 kg Body Mass Index (BMI) 18.5 Sodium 136 mmol/L (136-145) 09/15/17 05:05 Potassium 4.1 mmol/L (3.5-5.1) 09/15/17 05:05 Chloride 90 mmol/L (98-107) L 09/15/17 05:05 Carbon Dioxide 40.0 mmol/L (21.0-32.0) H 09/15/17 05:05 Anion Gap 6 (5-15) 09/15/17 05:05 BUN 27 mg/dL (7-18) H 09/15/17 05:05 Creatinine 1.05 mg/dL (0.70-1.30) 09/15/17 05:05 Est GFR (MDRD) Af Amer 88 mL/min (>60) 09/15/17 05:05 Est GFR (MDRD) Non-Af 72 mL/min (>60) 09/15/17 05:05 BUN/Creatinine Ratio 25.7 RATIO (10-20) H 09/15/17 05:05 Glucose 87 mg/dL (74-106) 09/15/17 05:05 Assessment/Plan: Psychotropic Medications: Unnecessary Medications: Bowel Regimen: - Provider Comments Provider responsibility: Provider responsible to enter orders to implement recommendations Provider Comments to Recommendations by Pharmacy: Agree
--- NOTE | 2017-09-16 12:54 | PHA.CONS_ITS ---
<Suleman Cardoza - Last Filed: 09/16/17 12:22> Progress Note - Pharmacy Subjective: TCU Admission Objective: Allergies atorvastatin [From Lipitor] Allergy (Verified 09/07/17 17:34) Other indomethacin [From Indocin] Allergy (Verified 09/07/17 17:34) Other primidone Allergy (Verified 09/07/17 17:34) Other sertraline [From Zoloft] Allergy (Verified 09/07/17 17:34) Other Home Medications Medication Instructions Recorded Budesonide/Formoterol 160/4.5 2 puff INHALATION BID 09/07/17 [Symbicort 160/4.5 Mcg Inhaler (SP)] Cetirizine HCl [Allergy Relief] 10 mg PO DAILY 09/07/17 Ergocalciferol [Vitamin D] 50,000 unit PO QMONTH 09/07/17 Folic Acid 1 mg PO DAILY@0800 09/07/17 Furosemide [Lasix] 20 mg PO DAILY 09/07/17 Lycopene 10 mg PO QODAY 09/07/17 Potassium Chloride 10 meq PO DAILY 09/07/17 Selenium 200 mcg PO QODAY 09/07/17 Tamsulosin HCl [Flomax] 0.4 mg PO DAILY 09/07/17 Tiotropium [place] [Spiriva 18 MCG] 1 puff INHALATION DAILY 09/07/17 Aspirin [Aspirin, Baby] 81 mg PO DAILY@0800 09/08/17 Acetaminophen [Tylenol Tablet] 650 mg PO Q6H PRN PRN tablet 09/14/17 Albuterol Aerosols [Ventolin 2.5 mg INHALATION Q2H PRN PRN 09/14/17 Aerosols] vial.neb. Bisacodyl [Dulcolax] 5 mg PO DAILY PRN PRN tablet 09/14/17 Ensure Enlive 120 ml PO 4X/DAY 09/14/17 Guaifenesin [Mucinex] 1,200 mg PO BID 09/14/17 Ipratropium/Albuterol Sulfate 3 ml INHALATION Q6H.RT 09/14/17 [Duoneb] Lorazepam [Ativan] 0.5 mg PO TID #20 tab 09/14/17 Pantoprazole Sodium [Protonix] 40 mg PO DAILY 09/14/17 Prednisone 10 mg PO UD 09/14/17 Current Medications Generic Name Dose Route Start Last Admin Trade Name Freq PRN Reason Stop Dose Admin Acetaminophen 1,000 mg 09/14/17 20:34 Tylenol PO Q8H PRN MILD PAIN (1-09/24) Albuterol Sulfate 2.5 mg 09/14/17 16:52 09/16/17 10:41 Ventolin Aerosols INHALATION 2.5 mg Q2H PRN PRN Administration SHORTNESS OF BREATH Albuterol/Ipratropium 3 ml 09/14/17 17:00 09/15/17 22:48 Duoneb INHALATION 3 ml Q6H.RT DANIELA Administration Aspirin 81 mg 09/15/17 08:00 09/16/17 08:06 Aspirin, Baby PO 81 mg DAILY@0800 [facility] Administration Bisacodyl 10 mg 09/14/17 20:35 Dulcolax PO DAILY PRN PRN Constipation Calamine/Phenol 1 applic 09/15/17 06:00 09/16/17 06:48 Calmoseptine Ointment TOPICAL 1 applicatio BID [facility] Administration Protocol Enoxaparin Sodium 40 mg 09/15/17 06:00 09/16/17 06:49 Lovenox SC 40 mg DAILY@0600 [facility] Administration Ergocalciferol 50,000 unit 10/06/17 08:00 Vitamin D PO QMONTH DANIELA Folic Acid 1 mg 09/15/17 08:00 09/16/17 08:06 Folic Acid PO 1 mg DAILY@0800 [facility] Administration Furosemide 20 mg 09/15/17 06:00 09/16/17 06:48 Lasix PO 20 mg DAILY DANIELA Administration Guaifenesin 1,200 mg 09/14/17 18:00 09/16/17 06:50 Mucinex PO 1,200 mg BID DANIELA Administration Loratadine 10 mg 09/15/17 06:00 09/16/17 06:48 Claritin PO 10 mg DAILY [facility] Administration Lorazepam 1 mg 09/16/17 06:45 09/16/17 11:19 Ativan PO 1 mg Q6 DANIELA Administration Nutritional Formula (Lactose Free) 120 ml 09/14/17 22:00 09/16/17 11:20 Ensure Enlive PO 120 ml 4X/DAY D[facility]A Administration Pantoprazole Sodium 40 mg 09/15/17 06:00 09/16/17 06:49 Protonix PO 40 mg DAILY DANI[facility]A Administration Paroxetine HCl 40 mg 09/14/17 22:00 09/15/17 21:48 Paxil PO 40 mg QHS DANIELA Administration Polyethylene Glycol 17 gm 09/15/17 06:00 09/16/17 06:49 Miralax PO Not Given DAILY [facility] Potassium Chloride 10 meq 09/15/17 08:00 09/16/17 08:06 K-Dur PO 10 meq DAILY@0800 DANIELA Administration Prednisone 40 mg 09/15/17 08:00 09/16/17 08:06 Prednisone PO 09/27/17 07:59 40 mg DAILY@0800 DANIELA Administration Taper Fluticasone/Salmeterol 1 puff 09/15/17 06:00 09/16/17 06:45 Advair 250/50 Mcg Diskus INHALATION 1 puff BID [facility] Administration Senna/Docusate Sodium 1 tablet 09/15/17 06:00 09/16/17 06:50 Senokot-S, Gaye-Colace PO Not Given BID [facility] Tamsulosin HCl 0.4 mg 09/14/17 17:30 09/15/17 17:10 Flomax PO 0.4 mg DAILY@1730 [facility] Administration Tiotropium [place] 1 puff 09/15/17 06:00 09/16/17 06:45 Spiriva 18 Mcg INHALATION 1 puff DAILY DANIELA Administration Tuberculin PPD 5 tu 09/22/17 10:00 Tubersol, Aplisol, Ppd ID 09/22/17 10:01 X1 ONE Problem List Anxiety (Chronic) Acne rosacea (Chronic) Hypokalemia (Chronic) Hyponatremia (Acute) Vital Signs Temp Pulse Resp BP Pulse Ox 98.2 F 80 21 H 104/61 95 09/15/17 15:06 09/16/17 10:43 09/16/17 10:43 09/15/17 15:06 09/16/17 09:14 Oxygen Flow Rate 3 Oxygen Delivery Method Nasal Cannula Weight: 59.466 kg Body Mass Index (BMI) 18.5 Sodium 136 mmol/L (136-145) 09/15/17 05:05 Potassium 4.1 mmol/L (3.5-5.1) 09/15/17 05:05 Chloride 90 mmol/L (98-107) L 09/15/17 05:05 Carbon Dioxide 40.0 mmol/L (21.0-32.0) H 09/15/17 05:05 Anion Gap 6 (5-15) 09/15/17 05:05 BUN 27 mg/dL (7-18) H 09/15/17 05:05 Creatinine 1.05 mg/dL (0.70-1.30) 09/15/17 05:05 Est GFR (MDRD) Af Amer 88 mL/min (>60) 09/15/17 05:05 Est GFR (MDRD) Non-Af 72 mL/min (>60) 09/15/17 05:05 BUN/Creatinine Ratio 25.7 RATIO (10-20) H 09/15/17 05:05 Glucose 87 mg/dL (74-106) 09/15/17 05:05 Assessment/Plan: 1) Pain APAP for mild pain. Continue to monitor prn medication use, daily pain scores. * 2) Pulm Tiotropium inh daily, prednisone until 09/27, loratadine, ipratropium/ albuterol scheduled, guaifenesin, Advair inh, albuterol prn. Continue to monitor prn medication use, for sob. * Duplication of therapy with Duonebs and Advair and tiotropium. Please d/c Duoneb aerosols. 3) Edema Furosemide/KCl daily. BUN/SCr at baseline, K wnl. Continue to monitor renal function, electrolytes. 4) DVT PPx Enoxaparin daily. Continue to monitor for s/s bleeding/clot. 5) Nutrition Ensure, D, folic acid. Continue to monitor clinically. 6) BPH Tamsulosin daily. Continue to monitor symptoms. 7) GI Pantoprazole daily. Continue to monitor s/s GI distress. Psychotropic Medications: 8) Depression/Anxiety Paroxetine at HS, lorazepam scheduled. Continue to monitor s/s depression. Unnecessary Medications: None Bowel Regimen: 9) Senna/s, PEG, prn bisacodyl. Continue to monitor prn medication use, for constipation/diarrhea. Date of Note:: 09/16/17 - Provider Comments Provider responsibility: Provider responsible to enter orders to implement recommendations <Pascual Vargas Chi - Last Filed: 09/16/17 13:57> Progress Note - Pharmacy Subjective: [] Objective: Allergies atorvastatin [From Lipitor] Allergy (Verified 09/07/17 17:34) Other indomethacin [From Indocin] Allergy (Verified 09/07/17 17:34) Other primidone Allergy (Verified 09/07/17 17:34) Other sertraline [From Zoloft] Allergy (Verified 09/07/17 17:34) Other Home Medications Medication Instructions Recorded Budesonide/Formoterol 160/4.5 2 puff INHALATION BID 09/07/17 [Symbicort 160/4.5 Mcg Inhaler (SP)] Cetirizine HCl [Allergy Relief] 10 mg PO DAILY 09/07/17 Ergocalciferol [Vitamin D] 50,000 unit PO QMONTH 09/07/17 Folic Acid 1 mg PO DAILY@0800 09/07/17 Furosemide [Lasix] 20 mg PO DAILY 09/07/17 Lycopene 10 mg PO QODAY 09/07/17 Potassium Chloride 10 meq PO DAILY 09/07/17 Selenium 200 mcg PO QODAY 09/07/17 Tamsulosin HCl [Flomax] 0.4 mg PO DAILY 09/07/17 Tiotropium [place] [Spiriva 18 MCG] 1 puff INHALATION DAILY 09/07/17 Aspirin [Aspirin, Baby] 81 mg PO DAILY@0800 09/08/17 Acetaminophen [Tylenol Tablet] 650 mg PO Q6H PRN PRN tablet 09/14/17 Albuterol Aerosols [Ventolin 2.5 mg INHALATION Q2H PRN PRN 09/14/17 Aerosols] vial.neb. Bisacodyl [Dulcolax] 5 mg PO DAILY PRN PRN tablet 09/14/17 Ensure Enlive 120 ml PO 4X/DAY 09/14/17 Guaifenesin [Mucinex] 1,200 mg PO BID 09/14/17 Ipratropium/Albuterol Sulfate 3 ml INHALATION Q6H.RT 09/14/17 [Duoneb] Lorazepam [Ativan] 0.5 mg PO TID #20 tab 09/14/17 Pantoprazole Sodium [Protonix] 40 mg PO DAILY 09/14/17 Prednisone 10 mg PO UD 09/14/17 Current Medications Generic Name Dose Route Start Last Admin Trade Name Freq PRN Reason Stop Dose Admin Acetaminophen 1,000 mg 09/14/17 20:34 Tylenol PO Q8H PRN MILD PAIN (1-3/10) Albuterol Sulfate 2.5 mg 09/14/17 16:52 09/16/17 10:41 Ventolin Aerosols INHALATION 2.5 mg Q2H PRN PRN Administration SHORTNESS OF BREATH Albuterol/Ipratropium 3 ml 09/14/17 17:00 09/15/17 22:48 Duoneb INHALATION 3 ml Q6H.RT DANIELA Administration Aspirin 81 mg 09/15/17 08:00 09/16/17 08:06 Aspirin, Baby PO 81 mg DAILY@0800 [facility] Administration Bisacodyl 10 mg 09/14/17 20:35 Dulcolax PO DAILY PRN PRN Constipation Calamine/Phenol 1 applic 09/15/17 06:00 09/16/17 06:48 Calmoseptine Ointment TOPICAL 1 applicatio BID [facility] Administration Protocol Enoxaparin Sodium 40 mg 09/15/17 06:00 09/16/17 06:49 Lovenox SC 40 mg DAILY@0600 [facility] Administration Ergocalciferol 50,000 unit 10/06/17 08:00 Vitamin D PO QMONTH [facility] Folic Acid 1 mg 09/15/17 08:00 09/16/17 08:06 Folic Acid PO 1 mg DAILY@0800 [facility] Administration Furosemide 20 mg 09/15/17 06:00 09/16/17 06:48 Lasix PO 20 mg DAILY [facility] Administration Guaifenesin 1,200 mg 09/14/17 18:00 09/16/17 06:50 Mucinex PO 1,200 mg BID [facility] Administration Loratadine 10 mg 09/15/17 06:00 09/16/17 06:48 Claritin PO 10 mg DAILY [facility] Administration Lorazepam 1 mg 09/16/17 06:45 09/16/17 11:19 Ativan PO 1 mg Q6 [facility] Administration Nutritional Formula (Lactose Free) 120 ml 09/14/17 22:00 09/16/17 11:20 Ensure Enlive PO 120 ml 4X/DAY [facility] Administration Pantoprazole Sodium 40 mg 09/15/17 06:00 09/16/17 06:49 Protonix PO 40 mg DAILY [facility] Administration Paroxetine HCl 40 mg 09/14/17 22:00 09/15/17 21:48 Paxil PO 40 mg QHS [facility] Administration Polyethylene Glycol 17 gm 09/15/17 06:00 09/16/17 06:49 Miralax PO Not Given DAILY [facility] Potassium Chloride 10 meq 09/15/17 08:00 09/16/17 08:06 K-Dur PO 10 meq DAILY@0800 [facility] Administration Prednisone 40 mg 09/15/17 08:00 09/16/17 08:06 Prednisone PO 09/27/17 07:59 40 mg DAILY@0800 [facility] Administration Taper Fluticasone/Salmeterol 1 puff 09/15/17 06:00 09/16/17 06:45 Advair 250/50 Mcg Diskus INHALATION 1 puff BID [facility] Administration Senna/Docusate Sodium 1 tablet 09/15/17 06:00 09/16/17 06:50 Senokot-S, Gaye-Colace PO Not Given BID [facility] Tamsulosin HCl 0.4 mg 09/14/17 17:30 09/15/17 17:10 Flomax PO 0.4 mg DAILY@1730 [facility] Administration Tiotropium [place] 1 puff 09/15/17 06:00 09/16/17 06:45 Spiriva 18 Mcg INHALATION 1 puff DAILY [facility] Administration Tuberculin PPD 5 tu 09/22/17 10:00 Tubersol, Aplisol, Ppd ID 09/22/17 10:01 X1 ONE Problem List Anxiety (Chronic) Acne rosacea (Chronic) Hypokalemia (Chronic) Hyponatremia (Acute) Vital Signs Temp Pulse Resp BP Pulse Ox 98.2 F 80 21 H 104/61 95 09/15/17 15:06 09/16/17 10:43 09/16/17 10:43 09/15/17 15:06 09/16/17 09:14 Oxygen Flow Rate 3 Oxygen Delivery Method Nasal Cannula Weight: 59.466 kg Body Mass Index (BMI) 18.5 Sodium 136 mmol/L (136-145) 09/15/17 05:05 Potassium 4.1 mmol/L (3.5-5.1) 09/15/17 05:05 Chloride 90 mmol/L (98-107) L 09/15/17 05:05 Carbon Dioxide 40.0 mmol/L (21.0-32.0) H 09/15/17 05:05 Anion Gap 6 (5-15) 09/15/17 05:05 BUN 27 mg/dL (7-18) H 09/15/17 05:05 Creatinine 1.05 mg/dL (0.70-1.30) 09/15/17 05:05 Est GFR (MDRD) Af Amer 88 mL/min (>60) 09/15/17 05:05 Est GFR (MDRD) Non-Af 72 mL/min (>60) 09/15/17 05:05 BUN/Creatinine Ratio 25.7 RATIO (10-20) H 09/15/17 05:05 Glucose 87 mg/dL (74-106) 09/15/17 05:05 Assessment/Plan: Psychotropic Medications: Unnecessary Medications: Bowel Regimen: - Provider Comments Provider responsibility: Provider responsible to enter orders to implement recommendations Provider Comments to Recommendations by Pharmacy: Agree
[2017-09-16] MEDS: Tamsulosin HCl 0.4 MG Capsule PO (17:11)
--- NOTE | 2017-09-16 18:50 | NURSING ---
PT REFUSING ENSURE 4XDAY, ONLY WANTS IN AM AND EVENING. ORDERS CHANGED PER PT REQUEST
--- NOTE | 2017-09-16 21:59 | NURSING ---
Patient having a hard time voiding since maurice being removed. Patient bladder scanned for 922. Dr. Vargas notified. Orders given to reinsert Maurice
--- NOTE | 2017-09-16 22:56 | NURSING ---
CALVILLO REINSERTED PER ORDER RETURNED 800 CC CLEAR ELY URINE. PATIENT RIVERA PROCEDURE WELL. FELT IMMEDIATELY RELIEF FROM PRESSURE. WILL CONT TO MONITOR.
[2017-09-16] MEDS: Ipratropium/Albuterol Sulfate 3 ML AMPUL.NEB INHALATION (23:55)
[2017-09-17] VITALS (7 sets, daily range): BP systolic 110; BP diastolic 60; PULSE 71–84; RESP 16–22; TEMP 36.9; O2SAT 94–98
[2017-09-17] MEDS: LORazepam 1 MG Tablet PO ×3 (06:29→17:59)
[2017-09-17] MEDS: Loratadine 10 MG Tablet PO (06:31)
[2017-09-17] MEDS: guaiFENesin 1,200 MG Tablet 1200 MG PO ×2 (06:31→17:55)
[2017-09-17] MEDS: Pantoprazole Sodium 40 MG Tablet PO (06:31)
[2017-09-17] MEDS: Menthol/Lanolin/Calamine/Znox 113 GM Tube 1 APPLIC TOPICAL ×2 (06:32→18:45)
[2017-09-17] MEDS: Furosemide 20 MG Tablet PO (06:32)
[2017-09-17] MEDS: Albuterol 2.5 MG/3 ML VIAL.NEB. INHALATION ×5 (06:33→23:30)
[2017-09-17] MEDS: Enoxaparin 40 MG/0.4 ML Syringe SC (06:37)
[2017-09-17] MEDS: Folic Acid 1 MG Tablet PO (08:39)
[2017-09-17] MEDS: Aspirin 81 MG TAB.CHEW PO (08:39)
[2017-09-17] MEDS: Senna/Docusate Sodium 1 Tablet PO (17:54)
[2017-09-17] MEDS: Tamsulosin HCl 0.4 MG Capsule PO (17:55)
[2017-09-18] VITALS (8 sets, daily range): BP systolic 120; BP diastolic 66; PULSE 70–79; RESP 16–24; TEMP 36.8; O2SAT 95–98
[2017-09-18] MEDS: LORazepam 1 MG Tablet PO ×4 (01:41→19:06)
[2017-09-18] MEDS: Albuterol 2.5 MG/3 ML VIAL.NEB. INHALATION ×6 (02:56→22:50)
--- NOTE | 2017-09-18 05:45 | NURSING ---
Pt has not had bm since 09-14, when asked if this was accurate pt said it was and it was not unusual for him to go several days without bm. Stated I am also not eating very much and not moving around. Agreeable to taking stool softeners/laxative with am meds. Denies any pain or discomfort. RN aware, continuing to monitor.
[2017-09-18] MEDS: guaiFENesin 1,200 MG Tablet 1200 MG PO ×2 (06:25→19:07)
[2017-09-18] MEDS: Enoxaparin 40 MG/0.4 ML Syringe SC (06:26)
[2017-09-18] MEDS: Menthol/Lanolin/Calamine/Znox 113 GM Tube 1 APPLIC TOPICAL ×2 (06:27→19:13)
[2017-09-18] MEDS: Polyethylene Glycol 3350 17 GM PACKET PO (06:27)
[2017-09-18] MEDS: Pantoprazole Sodium 40 MG Tablet PO (06:27)
[2017-09-18] MEDS: Furosemide 20 MG Tablet PO (06:27)
[2017-09-18] MEDS: Loratadine 10 MG Tablet PO (06:28)
[2017-09-18] MEDS: Senna/Docusate Sodium 1 Tablet PO ×2 (06:28→19:06)
--- NOTE | 2017-09-18 06:34 | NURSING ---
Maria catheter emptied for 100ml clear, charis colored urine. No odor noted, no complaints offered.
[2017-09-18] MEDS: Aspirin 81 MG TAB.CHEW PO (08:34)
[2017-09-18] MEDS: Folic Acid 1 MG Tablet PO (08:34)
[2017-09-18] MEDS: Bisacodyl 5 MG Tablet 10 MG PO (14:32)
[2017-09-18] MEDS: Tamsulosin HCl 0.4 MG Capsule PO (19:06)
[2017-09-19] VITALS (8 sets, daily range): BP systolic 123; BP diastolic 66; PULSE 70–98; RESP 18–20; TEMP 36.3; O2SAT 97–98
[2017-09-19] MEDS: LORazepam 1 MG Tablet PO ×5 (00:09→23:21)
[2017-09-19] MEDS: Albuterol 2.5 MG/3 ML VIAL.NEB. INHALATION ×6 (03:05→23:30)
[2017-09-19] MEDS: Menthol/Lanolin/Calamine/Znox 113 GM Tube 1 APPLIC TOPICAL ×2 (06:33→17:25)
[2017-09-19] MEDS: guaiFENesin 1,200 MG Tablet 1200 MG PO ×2 (06:36→17:19)
[2017-09-19] MEDS: Bisacodyl 5 MG Tablet 10 MG PO (06:36)
[2017-09-19] MEDS: Polyethylene Glycol 3350 17 GM PACKET PO (06:37)
[2017-09-19] MEDS: Enoxaparin 40 MG/0.4 ML Syringe SC (06:37)
[2017-09-19] MEDS: Loratadine 10 MG Tablet PO (06:38)
[2017-09-19] MEDS: Furosemide 20 MG Tablet PO (06:38)
[2017-09-19] MEDS: Pantoprazole Sodium 40 MG Tablet PO (06:38)
[2017-09-19] MEDS: Senna/Docusate Sodium 1 Tablet PO ×2 (06:39→17:18)
[2017-09-19] MEDS: Aspirin 81 MG TAB.CHEW PO (07:55)
[2017-09-19] MEDS: Folic Acid 1 MG Tablet PO (07:55)
[2017-09-19] MEDS: Magnesium Citrate 300 ML PO (11:03)
--- NOTE | 2017-09-19 14:13 | CASEMGMT ---
Brief interview for mental status (BIMS) and resident mood interview (PHQ-9) completed on this day. BIMS score 15. PHQ-9 score 11/11
--- NOTE | 2017-09-19 14:14 | CASEMGMT ---
Social Work Resident requesting to speak with this medical social consultant to discuss Medicaid application status. This medical social consultant communicating to resident that resident now has a pending medicaid number: [id number]. Resident voicing understanding and is aware of what a pending medicaid number means. Resident first option for fpc, in the event that resident is not able to return home with significant other would be [facility]. Support given. Will continue to follow. No discharge date set at this time. Pending further approval from insurance. Bia CHURCH, ORACLE SOFTWARE ENGINEER
[2017-09-19] MEDS: Tamsulosin HCl 0.4 MG Capsule PO (17:19)
[2017-09-20] VITALS (8 sets, daily range): BP systolic 114; BP diastolic 64; PULSE 72–92; RESP 16–18; TEMP 37; O2SAT 96–98
[2017-09-20] MEDS: Albuterol 2.5 MG/3 ML VIAL.NEB. INHALATION ×6 (04:15→23:04)
[2017-09-20] MEDS: LORazepam 1 MG Tablet PO ×4 (05:02→23:16)
[2017-09-20] MEDS: Menthol/Lanolin/Calamine/Znox 113 GM Tube 1 APPLIC TOPICAL ×2 (05:03→17:15)
[2017-09-20] MEDS: Enoxaparin 40 MG/0.4 ML Syringe SC (05:05)
[2017-09-20] MEDS: guaiFENesin 1,200 MG Tablet 1200 MG PO ×2 (05:05→17:12)
[2017-09-20] MEDS: Loratadine 10 MG Tablet PO (05:05)
[2017-09-20] MEDS: Pantoprazole Sodium 40 MG Tablet PO (05:05)
[2017-09-20] MEDS: Furosemide 20 MG Tablet PO (05:05)
[2017-09-20] MEDS: Folic Acid 1 MG Tablet PO (08:35)
[2017-09-20] MEDS: Aspirin 81 MG TAB.CHEW PO (08:35)
--- NOTE | 2017-09-20 09:56 | CASEMGMT ---
Insurance Continued stay approved. Next update due on 09/21/17 Auth#[id number] Bia CHURCH, TECHNOLOGY SOLUTIONS ARCHITECT
[2017-09-20] MEDS: Tamsulosin HCl 0.4 MG Capsule PO (17:12)
[2017-09-20] MEDS: Senna/Docusate Sodium 1 Tablet PO (17:12)
--- NOTE | 2017-09-20 19:54 | NURSING ---
Scratched bridge of nose with jagged finger nail when attempting to readjust O2 tubing. Patient will trim his nails. Area left open to air. Will cont to monitor. Same reported to AMITA Myers.
[2017-09-21] VITALS (8 sets, daily range): BP systolic 137; BP diastolic 68; PULSE 62–89; RESP 16–20; TEMP 36.4; O2SAT 4–98
[2017-09-21] MEDS: Albuterol 2.5 MG/3 ML VIAL.NEB. INHALATION ×6 (03:14→23:06)
[2017-09-21] MEDS: LORazepam 1 MG Tablet PO ×4 (05:39→23:25)
[2017-09-21] MEDS: guaiFENesin 1,200 MG Tablet 1200 MG PO ×2 (05:41→16:47)
[2017-09-21] MEDS: Pantoprazole Sodium 40 MG Tablet PO (05:41)
[2017-09-21] MEDS: Senna/Docusate Sodium 1 Tablet PO (05:41)
[2017-09-21] MEDS: Furosemide 20 MG Tablet PO (05:41)
[2017-09-21] MEDS: Enoxaparin 40 MG/0.4 ML Syringe SC (05:41)
[2017-09-21] MEDS: Menthol/Lanolin/Calamine/Znox 113 GM Tube 1 APPLIC TOPICAL ×2 (05:41→16:48)
[2017-09-21] MEDS: Polyethylene Glycol 3350 17 GM PACKET PO (05:41)
[2017-09-21] MEDS: Loratadine 10 MG Tablet PO (05:41)
--- NOTE | 2017-09-21 07:08 | NURSING ---
CALVILLO CATH REMOVED PER ORDER. PATIENT RIVERA PROCEDURE WELL. FLUIDS ENC AND TAKEN WELL. WILL CONT TO MONITOR.
[2017-09-21] MEDS: Aspirin 81 MG TAB.CHEW PO (07:48)
[2017-09-21] MEDS: Folic Acid 1 MG Tablet PO (07:48)
--- NOTE | 2017-09-21 09:59 | CASEMGMT ---
Plan of care meeting held. Resident present, no support person present. No discharge date set. Resident plans to continue with further care and treatment on the Transitional Care Unit. Resident plans to discharge home with significant other vs. [facility] ([facility]) pending resident level of assist. Currently team is thinking that resident will be able to return home with significant other with home health services at time of discharge. Resident next insurance update is: 09/21/17, resident aware that there is no guarantee of continued stay approval. Support given. Will continue to follow. Bia CHURCH, ASSISTANT WINEMAKER
--- NOTE | 2017-09-21 12:03 | CASEMGMT ---
Insurance Clinical information faxed. Pending continued stay approval at this time. Auth#[id number] Bia CHURCH, RUBBER SPLICER
[2017-09-21] MEDS: Tamsulosin HCl 0.4 MG Capsule PO (16:46)
--- NOTE | 2017-09-21 17:47 | NURSING ---
BLADDER SCANNED 859CC AFTER VOIDING 15CC, ST CATHED FOR 700CC. URINE CLOUDY WITH ODOR NOTED. DR TERESA NOTIFIED, NEW ORDER FOR UA
[2017-09-21 19:26] LABS: Mucous, Urine 0 SEEN /hpf (<or=2+)
[2017-09-21 19:31] LABS: Color, Urine Yellow (Yellow); Glucose, Dipstick Normal (Normal); Ketone-Dipstick Negative (Negative); Leukocyte Esterase-Dipstick 25 /ul (Negative); Nitrite-Dipstick Negative (Negative); Occult Blood-Urine 25 /ul (Negative); Protein-Dipstick Negative (Negative); Urine Bilirubin Dipstick Negative (Negative); Urine Clarity Sl. Cloudy (Clear); Urine Urobilinogen Normal (Normal)
[2017-09-21 19:38] LABS: Amorphous Sediment 2+ PHOS; Bacteria 2+ /hpf (None Seen); Red Blood Cells-Urine 0-5 SEEN /hpf (0-5); Squamous Epithelial Cells - UA 0-5 SEEN /hpf (0-5); White Blood Cells 0-5 SEEN /hpf (0-5)
[2017-09-22] VITALS (9 sets, daily range): BP systolic 113; BP diastolic 64; PULSE 71–96; RESP 18–21; TEMP 37.1; O2SAT 94–98
[2017-09-22] MEDS: Albuterol 2.5 MG/3 ML VIAL.NEB. INHALATION ×6 (02:59→23:09)
--- NOTE | 2017-09-22 03:42 | NURSING ---
Patient straight cathed for 500 after being bladder scanned for 820. Patient has not been able to void all night long. Patient feeling pressure in abdomen. Urine yellow and slightly cloudy, no odor noted.
[2017-09-22] MEDS: LORazepam 1 MG Tablet PO ×4 (05:06→23:21)
[2017-09-22] MEDS: Polyethylene Glycol 3350 17 GM PACKET PO (05:07)
[2017-09-22] MEDS: Senna/Docusate Sodium 1 Tablet PO ×2 (05:08→17:58)
[2017-09-22] MEDS: Pantoprazole Sodium 40 MG Tablet PO (05:08)
[2017-09-22] MEDS: Furosemide 20 MG Tablet PO (05:08)
[2017-09-22] MEDS: Loratadine 10 MG Tablet PO (05:08)
[2017-09-22] MEDS: guaiFENesin 1,200 MG Tablet 1200 MG PO ×2 (05:08→17:58)
[2017-09-22] MEDS: Enoxaparin 40 MG/0.4 ML Syringe SC (05:12)
[2017-09-22] MEDS: Menthol/Lanolin/Calamine/Znox 113 GM Tube 1 APPLIC TOPICAL ×2 (05:16→17:58)
[2017-09-22 06:10] LABS: Absolute Lymphocyte Count 1.01 X10^3/ul (0.83-4.51); Absolute Neutrophil Count 6.8 X10^3/uL (2.0-7.7); Basophil# 0.01 X10^3/uL; Basophil% 0.1 % (0-1); Eosinophil# 0.05 X10^3/uL; Eosinophils% 0.6 % (0-5); Hematocrit 39.9 % (40-54); Hemoglobin 12.6 g/dl (13.0-16.5); Lymphocyte # 1.01 X10^3/ul (4.0); Lymphocyte % 11.8 % (19-41); Mean Corp Hgb Conc 31.6 g/gl (32-36); Mean Corpuscular Hgb 28.9 pg (27.0-32.0); Mean Corpuscular Volume 91.5 fL (80-94); Mean Platelet Vol. 9.1 fl (6.2-12.0); Monocyte# 0.61 X10^3/uL; Monocyte% 7.1 % (0-10); Neutrophil # 6.84 X10^3/uL (2.7-7.7); Neutrophil % 79.9 % (47-70); Platelet Count 123 K/mm3 (150-450); RBC Distribution Width CV 13.3 % (11.6-14.6); RBC Distribution Width SD 44.4 fl (35.1-43.9); Red Blood Count 4.36 M/mm3 (4.6-6.2); White Blood Count 8.6 K/mm3 (4.4-11.0)
[2017-09-22 06:23] LABS: Anion Gap 4 (5-15); BUN 21 mg/dL (7-18); BUN/Creat Ratio 21.6 RATIO (10-20); Chloride 88 mmol/L (98-107); Creatinine, Serum 0.97 mg/dL (0.70-1.30); EST Glomerular Filtration Rate 79 mL/min (>60); Est Glom Filt Rate - Afr Amer 96 mL/min (>60); Estimated Creatinine Clearance 51.94 ml/min; Glucose 86 mg/dL (74-106); Potassium 4.5 mmol/L (3.5-5.1); Sodium Level 129 mmol/L (136-145)
[2017-09-22 06:26] LABS: POSITIVE COUNT NO; POSITIVE DIFFERENTIAL NO; POSITIVE MORPHOLOGY NO
[2017-09-22] MEDS: Aspirin 81 MG TAB.CHEW PO (08:21)
[2017-09-22] MEDS: Folic Acid 1 MG Tablet PO (08:21)
[2017-09-22] MEDS: Tuberculin,Purif.prot.deriv. 50 TU/ML Vial 5 ML ID (10:48)
--- NOTE | 2017-09-22 10:57 | NURSING ---
Pt c/o not being able to urinate. This nurse inserted 16fr Maurice cath with no difficulties, 10 ml balloon filled with 10 ml of NS, cath secured with stat lock on inner thigh, Pt tolerated well. cath draining to gravity with pale yellow clear urine noted in tubing. Pt had output of 700ml with catheter insertion. Pt asked to be seen by urology as this has been second time maurice has been inserted due to retention. will continue to monitor. AMITA Walker aware
[2017-09-22] MEDS: Tamsulosin HCl 0.4 MG Capsule PO (17:58)
[2017-09-23] VITALS (10 sets, daily range): BP systolic 118–134; BP diastolic 71–82; PULSE 75–135; RESP 18–35; TEMP 36.8; O2SAT 84–98
[2017-09-23] MEDS: LORazepam 1 MG Tablet PO ×4 (05:33→23:02)
[2017-09-23] MEDS: Polyethylene Glycol 3350 17 GM PACKET PO (05:35)
[2017-09-23] MEDS: Furosemide 20 MG Tablet PO (05:36)
[2017-09-23] MEDS: Pantoprazole Sodium 40 MG Tablet PO (05:36)
[2017-09-23] MEDS: Senna/Docusate Sodium 1 Tablet PO ×2 (05:36→17:27)
[2017-09-23] MEDS: guaiFENesin 1,200 MG Tablet 1200 MG PO ×2 (05:36→17:27)
[2017-09-23] MEDS: Loratadine 10 MG Tablet PO (05:36)
[2017-09-23] MEDS: Enoxaparin 40 MG/0.4 ML Syringe SC (05:37)
[2017-09-23] MEDS: Menthol/Lanolin/Calamine/Znox 113 GM Tube 1 APPLIC TOPICAL ×2 (05:40→20:05)
[2017-09-23] MEDS: Albuterol 2.5 MG/3 ML VIAL.NEB. INHALATION ×5 (07:15→23:10)
[2017-09-23] MEDS: Bisacodyl 5 MG Tablet 10 MG PO (08:38)
[2017-09-23] MEDS: Aspirin 81 MG TAB.CHEW PO (08:40)
[2017-09-23] MEDS: Folic Acid 1 MG Tablet PO (08:40)
--- NOTE | 2017-09-23 09:51 | CASEMGMT ---
Insurance Continued stay approved with next update due on 09/27/17 Auth#[id number] Bia CHURCH, CASTING AND LOCKER ROOM SERVICER
--- NOTE | 2017-09-23 11:28 | NURSING ---
Addendum entered by Denisa Foy 09/23/17 16:45: Dr. Méndez here to see pt, N.O. received, will updated Dr. Vargas Original Note: Dr. Méndez consulted at this time
--- NOTE | 2017-09-23 16:37 | CON.PCM_ITS ---
Problem List (1) Urinary retention due to benign prostatic hyperplasia Status: Acute Reason for Consult Date of Consultation: 09/23/17 Reason for Consultation: Urinary retention from enlarged prostate. History of Present Illness: The patient is a 77 year old 77-year-old male known to my practice I treated him for urinary retention about 5 years ago with microwave therapy. This was successful at the time is able to restore voiding but this time he comes back and he is in recovery, and a half-way because of his lungs. He has been having difficulty with urination and retention of urine again. Not been able to void spontaneously. Currently taking Flomax I would increase her Flomax to twice a day, I would add Proscar 5 mg daily as well. Probably would I recommend we do another voiding trial to see if he can urinate in a few days per protocol. Past Medical History Past Medical History (Chronic Problems): Chronic Problems BPH (benign prostatic hyperplasia) (Chronic) Anxiety (Chronic) Acne rosacea (Chronic) Hypokalemia (Chronic) Spontaneous pneumothorax (Chronic) COLD (chronic obstructive lung disease) (Chronic) Allergies atorvastatin [From Lipitor] Allergy (Verified 09/07/17 17:34) Other indomethacin [From Indocin] Allergy (Verified 09/07/17 17:34) Other primidone Allergy (Verified 09/07/17 17:34) Other sertraline [From Zoloft] Allergy (Verified 09/07/17 17:34) Other Home Medications: Ambulatory Orders Medication Instructions Recorded Budesonide/Formoterol 160/4.5 2 puff INHALATION BID 09/07/17 [Symbicort 160/4.5 Mcg Inhaler (SP)] Cetirizine HCl [Allergy Relief] 10 mg PO DAILY 09/07/17 Ergocalciferol [Vitamin D] 50,000 unit PO QMONTH 09/07/17 Folic Acid 1 mg PO DAILY@0800 09/07/17 Furosemide [Lasix] 20 mg PO DAILY 09/07/17 Lycopene 10 mg PO QODAY 09/07/17 Potassium Chloride 10 meq PO DAILY 09/07/17 Selenium 200 mcg PO QODAY 09/07/17 Tamsulosin HCl [Flomax] 0.4 mg PO DAILY 09/07/17 Tiotropium [place] [Spiriva 18 MCG] 1 puff INHALATION DAILY 09/07/17 Aspirin [Aspirin, Baby] 81 mg PO DAILY@0800 09/08/17 Acetaminophen [Tylenol Tablet] 650 mg PO Q6H PRN PRN tablet 09/14/17 Albuterol Aerosols [Ventolin 2.5 mg INHALATION Q2H PRN PRN 09/14/17 Aerosols] vial.neb. Bisacodyl [Dulcolax] 5 mg PO DAILY PRN PRN tablet 09/14/17 Ensure Enlive 120 ml PO 4X/DAY 09/14/17 Guaifenesin [Mucinex] 1,200 mg PO BID 09/14/17 Ipratropium/Albuterol Sulfate 3 ml INHALATION Q6H.RT 09/14/17 [Duoneb] Lorazepam [Ativan] 0.5 mg PO TID #20 tab 09/14/17 Pantoprazole Sodium [Protonix] 40 mg PO DAILY 09/14/17 Prednisone 10 mg PO UD 09/14/17 Surgical History: adenoidectomy, appendectomy, tonsillectomy Psychiatric History: Anxiety Lives: Spouse/ Significant Other - [place] male partner. Smoking Status: Former smoker Tobacco Use: Non-smoker Alcohol: None Drugs: None - *Family History Maternal History Items: Heart Disease Paternal History Items: Heart Disease Review of Systems Constitutional: Denies: Chills, Fever, Weight Change HEENT: Denies: Head Aches, Sinus Congestion, Sinus Drainage Cardiovascular: Denies: Chest Pain, Palpitations Respiratory: Reports: Cough, Shortness of Breath, Shortness of breath at rest, Shortness of breath upon exertion, Sputum production, Wheezing Gastrointestinal: Denies: Abdominal Pain, Nausea, Vomiting Genitourinary: Reports: Dysuria, Retention, Urgency Musculoskeletal: Denies: Joint Pain, Joint Tenderness Skin: Denies: Rash, Wounds Neurological: Denies: Numbness, Tingling, Focal weakness Psychiatric: Denies: Anxiety, Depression, Homicidal Ideations, Suicidal Ideations Hematologic/ Lymphatic: Denies: Easy Bruising, Easy Bleeding Physical Exam - Physical Exam Vital Signs Temp 98.2 F 09/23/17 15:26 Pulse 91 09/23/17 15:26 Resp 18 09/23/17 15:26 BP 118/71 09/23/17 15:26 Pulse Ox 98 09/23/17 15:26 Intake & Output 09/21/17 09/22/17 09/23/17 23:59 23:59 23:59 Intake Total 800 / 800 800 / 800 320 / 320 Output Total 365 / 365 2150 / 2150 1050 / 1050 Balance 435 / 435 -1350 / -1350 -730 / -730 Weight: 59.466 kg Intake: Oral 800 / 800 800 / 800 320 / 320 Output: Urine 365 / 365 2150 / 2150 1050 / 1050 General: Alert, Oriented x3 HEENT: Atraumatic Oral: Moist Mucosa Neck: Supple Lungs: Diminished, Rales, Tachypneic, Using Accessory Muscles, Wheezes Abdomen: Bowel Sounds Present - Healed, Soft Rectal: Exam deferred Psych/Mental Status: Normal Affect, Appropriate - my Assessment/Plan Active and Suspected Problems Hyponatremia (Acute) Urinary retention due to benign prostatic hyperplasia (Acute) 77-year-old male with BPH and retention of urine on exam today his prostate very large probably about 70-80 g. Would add Proscar 5 mg daily increase his Flomax to twice a day probably would do another voiding trial in a few days. We can do intermittent catheterization but if he fails another voiding trial may need to go home with a catheter and we can see him in the office to set him up for another microwave treatment of the prostate as an outpatient.
[2017-09-23] MEDS: Tamsulosin HCl 0.4 MG Capsule PO (17:27)
--- NOTE | 2017-09-23 23:30 | NURSING ---
Patient up to bathroom with SOLAR SYSTEM DESIGNER. This RN entered room to give patient Ativan. Patient transferred back to bed x1 assist and walker. Sat at edge of bed to catch his breath. Patient took Ativan PO without difficulty. SpO2 86% on 4L NC, heart rate 116. Wheezes present in anterior lobes, fine crackles in posterior bases. Respiratory at bedside to perform breathing treatment. During breathing treatment, patient took several breaks. O2 increased to 6L NC. Breathing treatment complete at 2320 and SpO2 96% and heart rate 113. This RN reassessed patient at 2330. Appeared SOB, using accessory muscles, three pillows behind head with HOB elevated 90 degrees. SpO2 84%, heart rate 135. AMITA Roy called Dr. Vargas, airflight attendants supervisor, and ER. Patient transported to ER.
--- NOTE | 2017-09-23 23:35 | NURSING ---
Pt very SOB and could not catch his breath after receiving a breathing tx and scheduled ativan. HR 132 and 85% on 6L NC. Dr. Vargas aware and new order to send pt to ER. Report called to ER. Left voicemail with .
[2017-09-24 08:03] LABS: Anion Gap 4 (5-15); BUN 17 mg/dL (7-18); BUN/Creat Ratio 19.4 RATIO (10-20); Calcium,Total 7.6 mg/dL (8.5-10.1); Chloride 87 mmol/L (98-107); Creatinine, Serum 0.88 mg/dL (0.70-1.30); EST Glomerular Filtration Rate 89 mL/min (>60); Est Glom Filt Rate - Afr Amer 108 mL/min (>60); Estimated Creatinine Clearance 57.25 ml/min; Glucose 157 mg/dL (74-106); Potassium 4.7 mmol/L (3.5-5.1); Sodium Level 125 mmol/L (136-145)
--- NOTE | 2017-09-24 09:11 | PCM.DC ---
You will use the following diet at home:: No restrictions, Regular Your food should be the consistency of: Regular Your liquids should be the consistency of: Regular/Thin Discharge Activity: Use Walker Weight Bearing Status: Weight bearing as tolerated Call your doctor if you observe: Fever of 101 or Higher, Inability to urinate, Inability to have a bowel movement, Shortness of breath, Chest pain, Uncontrolled pain Allergies/Adverse Reactions: Allergies atorvastatin [From Lipitor] Allergy (Verified 09/23/17 23:53) Other indomethacin [From Indocin] Allergy (Verified 09/23/17 23:53) Other primidone Allergy (Verified 09/23/17 23:53) Other sertraline [From Zoloft] Allergy (Verified 09/23/17 23:53) Other Medications to take at Discharge Folic Acid 1 mg PO DAILY@0800 09/07/17 Furosemide [Lasix] 20 mg PO DAILY 09/07/17 Potassium Chloride 10 meq PO DAILY 09/07/17 Tamsulosin HCl [Flomax] 0.4 mg PO BID 09/07/17 Tiotropium [place] [Spiriva 18 MCG] 1 puff INHALATION DAILY 09/07/17 Aspirin [Aspirin, Baby] 81 mg PO DAILY@0800 09/08/17 Bisacodyl [Dulcolax] 5 mg PO DAILY PRN PRN tablet 09/14/17 Ensure Enlive 120 ml PO BID 09/14/17 Guaifenesin [Mucinex] 1,200 mg PO BID 09/14/17 Pantoprazole Sodium [Protonix] 40 mg PO DAILY 09/14/17 Prednisone 20 mg PO UD 09/14/17 Acetaminophen 1,000 mg PO Q8 PRN 09/24/17 Albuterol Aerosols [Ventolin Aerosols] 2.5 mg INHALATION Q2H PRN PRN 09/24/17 Albuterol Aerosols [Ventolin Aerosols] 2.5 mg INHALATION Q4H PRN 09/24/17 Enoxaparin [Lovenox] 40 mg SC DAILY@0600 09/24/17 Finasteride [Proscar] 5 mg PO DAILY 09/24/17 Fluticasone/Salmeterol [Advair 250/50 Mcg Diskus] 1 puff INHALATION BID 09/24/17 Loratadine [Claritin] 10 mg PO DAILY 09/24/17 Lorazepam [Ativan] 1 mg PO 4X/DAY 09/24/17 Menthol/Lanolin/Calamine/Znox [Calmoseptine Ointment] 113 gm TP BID 09/24/17 Paroxetine HCl [Paxil] 20 mg PO QHS 09/24/17 Polyethylene Glycol 3350 [Miralax] 17 gm PO DAILY 09/24/17 Sennosides/Docusate Sodium [Senna-Docusate Sodium Tablet] 1 each PO BID 09/24/17 Primary Care Physician: Torrey Davis MD [Primary Care Provider] - Please follow up with your Primary Care Physician in: 1 week. Proposed Discharge Date: 09/24/17
--- NOTE | 2017-09-24 09:13 | PCM.DC.SUM ---
Discharge Date and Diagnosis Date of Admission: 09/14/17 Date of Discharge: 09/24/17 - Secondary Discharge Diagnosis Chronic Problems BPH (benign prostatic hyperplasia) (Chronic) Anxiety (Chronic) Acne rosacea (Chronic) Hypokalemia (Chronic) Spontaneous pneumothorax (Chronic) COLD (chronic obstructive lung disease) (Chronic) Hospital Course and Treatment Operations: None Procedures: None Summary of Care Provided: The patient is a 77 year old Male with below past medical history significant for oxygen dependent COPD for 8 years, hospitalized for acute on chronic respiratory failure secondary to COPD exacerbation, complicated by anxiety, admitted to TCU with debility, here for rehabilitation, strengthening, prior to discharge home with significant other. 09/24/2017 Resident went to restroom, became acutely short of breath, pulsox 85% on 6 liters per NC, heart rate 130's. [] Discharge to [facility] Emergency Department for evaluation, admission for shortness of breath, tachycardia. Discharge Diet: No Restrictions Discharge Activity: Use Walker Weight Bearing Status: Weight bearing as tolerated Call your doctor if you observe: Fever of 101 or Higher, Inability to urinate, Inability to have a bowel movement, Shortness of breath, Chest pain, Uncontrolled pain Home Medications: Medications to take at Discharge Folic Acid 1 mg PO DAILY@0800 09/07/17 Furosemide [Lasix] 20 mg PO DAILY 09/07/17 Potassium Chloride 10 meq PO DAILY 09/07/17 Tamsulosin HCl [Flomax] 0.4 mg PO BID 09/07/17 Tiotropium [place] [Spiriva 18 MCG] 1 puff INHALATION DAILY 09/07/17 Aspirin [Aspirin, Baby] 81 mg PO DAILY@0800 09/08/17 Bisacodyl [Dulcolax] 5 mg PO DAILY PRN PRN tablet 09/14/17 Ensure Enlive 120 ml PO BID 09/14/17 Guaifenesin [Mucinex] 1,200 mg PO BID 09/14/17 Pantoprazole Sodium [Protonix] 40 mg PO DAILY 09/14/17 Prednisone 20 mg PO UD 09/14/17 Acetaminophen 1,000 mg PO Q8 PRN 09/24/17 Albuterol Aerosols [Ventolin Aerosols] 2.5 mg INHALATION Q2H PRN PRN 09/24/17 Albuterol Aerosols [Ventolin Aerosols] 2.5 mg INHALATION Q4H PRN 09/24/17 Enoxaparin [Lovenox] 40 mg SC DAILY@0600 09/24/17 Finasteride [Proscar] 5 mg PO DAILY 09/24/17 Fluticasone/Salmeterol [Advair 250/50 Mcg Diskus] 1 puff INHALATION BID 09/24/17 Loratadine [Claritin] 10 mg PO DAILY 09/24/17 Lorazepam [Ativan] 1 mg PO 4X/DAY 09/24/17 Menthol/Lanolin/Calamine/Znox [Calmoseptine Ointment] 113 gm TP BID 09/24/17 Paroxetine HCl [Paxil] 20 mg PO QHS 09/24/17 Polyethylene Glycol 3350 [Miralax] 17 gm PO DAILY 09/24/17 Sennosides/Docusate Sodium [Senna-Docusate Sodium Tablet] 1 each PO BID 09/24/17 Primary Care Physician: Torrey Davis MD [Primary Care Provider] - Please follow up with your Primary Care Physician in: 1 week. Disposition: Acute care Hospital Minutes spent on discharge:: 35 Patient Condition:: Guarded Meaningful Use Info Meaningful Use Diagnoses (Choose all that apply): None applicable
--- NOTE | 2017-09-24 09:16 | DS.PCM_ITS ---
Discharge Date and Diagnosis Date of Admission: 09/14/17 Date of Discharge: 09/24/17 - Secondary Discharge Diagnosis Chronic Problems BPH (benign prostatic hyperplasia) (Chronic) Anxiety (Chronic) Acne rosacea (Chronic) Hypokalemia (Chronic) Spontaneous pneumothorax (Chronic) COLD (chronic obstructive lung disease) (Chronic) Hospital Course and Treatment Operations: None Procedures: None Summary of Care Provided: The patient is a 77 year old Male with below past medical history significant for oxygen dependent COPD for 8 years, hospitalized for acute on chronic respiratory failure secondary to COPD exacerbation, complicated by anxiety, admitted to TCU with debility, here for rehabilitation, strengthening, prior to discharge home with significant other. 09/24/2017 Resident went to restroom, became acutely short of breath, pulsox 85% on 6 liters per NC, heart rate 130's. [] Discharge to [facility] Emergency Department for evaluation, admission for shortness of breath, tachycardia. Discharge Diet: No Restrictions Discharge Activity: Use Walker Weight Bearing Status: Weight bearing as tolerated Call your doctor if you observe: Fever of 101 or Higher, Inability to urinate, Inability to have a bowel movement, Shortness of breath, Chest pain, Uncontrolled pain Home Medications: Medications to take at Discharge Folic Acid 1 mg PO DAILY@0800 09/07/17 Furosemide [Lasix] 20 mg PO DAILY 09/07/17 Potassium Chloride 10 meq PO DAILY 09/07/17 Tamsulosin HCl [Flomax] 0.4 mg PO BID 09/07/17 Tiotropium [place] [Spiriva 18 MCG] 1 puff INHALATION DAILY 09/07/17 Aspirin [Aspirin, Baby] 81 mg PO DAILY@0800 09/08/17 Bisacodyl [Dulcolax] 5 mg PO DAILY PRN PRN tablet 09/14/17 Ensure Enlive 120 ml PO BID 09/14/17 Guaifenesin [Mucinex] 1,200 mg PO BID 09/14/17 Pantoprazole Sodium [Protonix] 40 mg PO DAILY 09/14/17 Prednisone 20 mg PO UD 09/14/17 Acetaminophen 1,000 mg PO Q8 PRN 09/24/17 Albuterol Aerosols [Ventolin Aerosols] 2.5 mg INHALATION Q2H PRN PRN 09/24/17 Albuterol Aerosols [Ventolin Aerosols] 2.5 mg INHALATION Q4H PRN 09/24/17 Enoxaparin [Lovenox] 40 mg SC DAILY@0600 09/24/17 Finasteride [Proscar] 5 mg PO DAILY 09/24/17 Fluticasone/Salmeterol [Advair 250/50 Mcg Diskus] 1 puff INHALATION BID Loratadine [Claritin] 10 mg PO DAILY 09/24/17 Lorazepam [Ativan] 1 mg PO 4X/DAY 09/24/17 Menthol/Lanolin/Calamine/Znox [Calmoseptine Ointment] 113 gm TP BID 09/24/17 Paroxetine HCl [Paxil] 20 mg PO QHS 09/24/17 Polyethylene Glycol 3350 [Miralax] 17 gm PO DAILY 09/24/17 Sennosides/Docusate Sodium [Senna-Docusate Sodium Tablet] 1 each PO BID Primary Care Physician: Torrey Davis MD [Primary Care Provider] - Please follow up with your Primary Care Physician in: 1 week. Disposition: Acute care Hospital Minutes spent on discharge:: 35 Patient Condition:: Guarded Meaningful Use Info Meaningful Use Diagnoses (Choose all that apply): None applicable
--- NOTE | 2017-09-24 14:50 | NURSING ---
PT RETURNED FROM ACUTE SIDE, WILL REVIEW ORDERS FOR ANYTHING NEW.
[2017-09-24 15:27] VITALS: BP 130/63; PULSE 86; RESP 22; TEMP 36.8; O2SAT 98
[2017-09-24 15:47] VITALS: PULSE 81; RESP 18; O2SAT 97
[2017-09-24] MEDS: Albuterol 2.5 MG/3 ML VIAL.NEB. INHALATION ×4 (15:47→23:23)
[2017-09-24] MEDS: Tamsulosin HCl 0.4 MG Capsule PO (17:47)
[2017-09-24] MEDS: guaiFENesin 1,200 MG Tablet 1200 MG PO (17:49)
[2017-09-24] MEDS: Menthol/Lanolin/Calamine/Znox 113 GM Tube 1 APPLIC TOPICAL (17:49)
[2017-09-24 18:01] VITALS: PULSE 82; RESP 20; O2SAT 95
[2017-09-24 18:43] VITALS: PULSE 90; RESP 20
[2017-09-24] MEDS: LORazepam 0.5 MG Tablet 1 MG PO (20:23)
[2017-09-24 21:20] VITALS: PULSE 103; RESP 22
[2017-09-24] MEDS: Acetaminophen 500 MG Tablet 1000 MG PO (21:34)
--- NOTE | 2017-09-24 21:39 | NURSING ---
PER PATIENT I DON'T TAKE SHOWERS, I GET CLAUSTROPHOBIC!. THIS NURSE REASSURED PATIENT THAT HE CAN WASH UP AT SINK. SAME REPORTED TO ESSENCE RN. AND SHADIA RN. WILL CONT TO MONITOR.
[2017-09-24 23:23] VITALS: PULSE 85; RESP 18
[2017-09-25] VITALS (8 sets, daily range): BP systolic 111–122; BP diastolic 67–69; PULSE 78–106; RESP 16–22; TEMP 36.4–36.5; O2SAT 91–98
[2017-09-25] MEDS: Albuterol 2.5 MG/3 ML VIAL.NEB. INHALATION ×6 (03:33→22:41)
[2017-09-25] MEDS: Enoxaparin 40 MG/0.4 ML Syringe SC (06:05)
[2017-09-25] MEDS: Menthol/Lanolin/Calamine/Znox 113 GM Tube 1 APPLIC TOPICAL ×2 (06:05→16:45)
[2017-09-25] MEDS: Senna/Docusate Sodium 1 Tablet PO ×2 (06:06→16:37)
[2017-09-25] MEDS: Loratadine 10 MG Tablet PO (06:06)
[2017-09-25] MEDS: Polyethylene Glycol 3350 17 GM PACKET PO (06:06)
[2017-09-25] MEDS: Finasteride 5 MG Tablet PO (06:06)
[2017-09-25] MEDS: Pantoprazole Sodium 40 MG Tablet PO (06:06)
[2017-09-25] MEDS: guaiFENesin 1,200 MG Tablet 1200 MG PO ×2 (06:07→16:37)
[2017-09-25] MEDS: LORazepam 0.5 MG Tablet 1 MG PO (06:20)
[2017-09-25] MEDS: Aspirin 81 MG TAB.CHEW PO (08:09)
[2017-09-25] MEDS: Folic Acid 1 MG Tablet PO (08:09)
[2017-09-25] MEDS: Tamsulosin HCl 0.4 MG Capsule PO ×2 (08:09→16:37)
--- NOTE | 2017-09-25 09:03 | NURSING ---
pt requesting scheduled ativan back, dr heller notified, new order obtained
[2017-09-25] MEDS: LORazepam 1 MG Tablet PO ×3 (11:42→23:01)
[2017-09-25] MEDS: Bisacodyl 5 MG Tablet PO (12:02)
--- NOTE | 2017-09-25 14:29 | NURSING ---
Pt complains of constipation this nurse gave ducolax tablet at this time, if no results Pt agreeable to rectal suppository. Hedy LEVI aware
[2017-09-25] MEDS: Acetaminophen 500 MG Tablet 1000 MG PO (18:24)
[2017-09-26] VITALS (8 sets, daily range): BP systolic 133; BP diastolic 67; PULSE 76–90; RESP 16–22; TEMP 37.1; O2SAT 91–98
[2017-09-26] MEDS: Albuterol 2.5 MG/3 ML VIAL.NEB. INHALATION ×6 (02:27→20:42)
[2017-09-26] MEDS: LORazepam 1 MG Tablet PO ×4 (05:40→23:35)
[2017-09-26] MEDS: Menthol/Lanolin/Calamine/Znox 113 GM Tube 1 APPLIC TOPICAL ×2 (05:41→18:15)
[2017-09-26] MEDS: Enoxaparin 40 MG/0.4 ML Syringe SC (05:43)
[2017-09-26] MEDS: Polyethylene Glycol 3350 17 GM PACKET PO (05:44)
[2017-09-26] MEDS: Senna/Docusate Sodium 1 Tablet PO ×2 (05:44→18:13)
[2017-09-26] MEDS: Finasteride 5 MG Tablet PO (05:44)
[2017-09-26] MEDS: Loratadine 10 MG Tablet PO (05:44)
[2017-09-26] MEDS: Pantoprazole Sodium 40 MG Tablet PO (05:44)
[2017-09-26] MEDS: guaiFENesin 1,200 MG Tablet 1200 MG PO ×2 (05:45→18:13)
--- NOTE | 2017-09-26 06:07 | NURSING ---
[place] CATH REMOVED PER ORDER. PATIENT TOLERATED PROCEDURE WELL. ENC TO DRINK FLUIDS. WILL CONT TO MONITOR.
[2017-09-26 06:17] LABS: Absolute Lymphocyte Count 0.53 X10^3/ul (0.83-4.51); Absolute Neutrophil Count 6.7 X10^3/uL (2.0-7.7); Eosinophil# 0.02 X10^3/uL; Eosinophils% 0.3 % (0-5); Hematocrit 36.1 % (40-54); Hemoglobin 11.5 g/dl (13.0-16.5); Lymphocyte # 0.53 X10^3/ul (4.0); Lymphocyte % 6.8 % (19-41); Mean Corp Hgb Conc 31.9 g/gl (32-36); Mean Corpuscular Hgb 29.1 pg (27.0-32.0); Mean Corpuscular Volume 91.4 fL (80-94); Mean Platelet Vol. 8.9 fl (6.2-12.0); Monocyte# 0.47 X10^3/uL; Monocyte% 6.1 % (0-10); Neutrophil % 86.5 % (47-70); Platelet Count 115 K/mm3 (150-450); RBC Distribution Width CV 13.6 % (11.6-14.6); RBC Distribution Width SD 45.2 fl (35.1-43.9); Red Blood Count 3.95 M/mm3 (4.6-6.2); White Blood Count 7.7 K/mm3 (4.4-11.0)
[2017-09-26 06:18] LABS: Differential Indicated SCAN CRITERIA MET; POSITIVE COUNT NO; POSITIVE DIFFERENTIAL YES; POSITIVE MORPHOLOGY NO
[2017-09-26 06:23] LABS: Anion Gap 4 (5-15); BUN 20 mg/dL (7-18); BUN/Creat Ratio 24.7 RATIO (10-20); Calcium,Total 8.2 mg/dL (8.5-10.1); Chloride 88 mmol/L (98-107); Creatinine, Serum 0.81 mg/dL (0.70-1.30); EST Glomerular Filtration Rate 98 mL/min (>60); Est Glom Filt Rate - Afr Amer 118 mL/min (>60); Glucose 89 mg/dL (74-106); Potassium 4.7 mmol/L (3.5-5.1); Sodium Level 127 mmol/L (136-145)
[2017-09-26 06:57] LABS: Differential Comment SCANNED
[2017-09-26] MEDS: Tamsulosin HCl 0.4 MG Capsule PO ×2 (09:30→18:13)
[2017-09-26] MEDS: Folic Acid 1 MG Tablet PO (09:31)
[2017-09-26] MEDS: Aspirin 81 MG TAB.CHEW PO (09:31)
[2017-09-26 09:51] LABS: Osmolality, Serum 269 mOsm/KG (280-301)
--- NOTE | 2017-09-26 11:05 | NURSING ---
Dr Vargas reviewed labs, new order for urine specimen entered.
[2017-09-27] VITALS (8 sets, daily range): BP systolic 120–130; BP diastolic 63–67; PULSE 78–90; RESP 16–24; TEMP 36.4–36.6; O2SAT 97–99
[2017-09-27] MEDS: Albuterol 2.5 MG/3 ML VIAL.NEB. INHALATION ×5 (02:47→19:50)
[2017-09-27] MEDS: Menthol/Lanolin/Calamine/Znox 113 GM Tube 1 APPLIC TOPICAL ×2 (05:41→17:31)
[2017-09-27] MEDS: LORazepam 1 MG Tablet PO ×4 (05:41→23:33)
[2017-09-27] MEDS: Senna/Docusate Sodium 1 Tablet PO ×2 (05:43→17:24)
[2017-09-27] MEDS: Enoxaparin 40 MG/0.4 ML Syringe SC (05:43)
[2017-09-27] MEDS: Finasteride 5 MG Tablet PO (05:44)
[2017-09-27] MEDS: Pantoprazole Sodium 40 MG Tablet PO (05:44)
[2017-09-27] MEDS: guaiFENesin 1,200 MG Tablet 1200 MG PO ×2 (05:44→17:24)
[2017-09-27] MEDS: Loratadine 10 MG Tablet PO (05:45)
[2017-09-27] MEDS: Polyethylene Glycol 3350 17 GM PACKET PO (05:45)
[2017-09-27] MEDS: Folic Acid 1 MG Tablet PO (08:32)
[2017-09-27] MEDS: Aspirin 81 MG TAB.CHEW PO (08:32)
[2017-09-27] MEDS: Tamsulosin HCl 0.4 MG Capsule PO ×2 (08:33→17:25)
--- NOTE | 2017-09-27 10:39 | CASEMGMT ---
Insurance Clinical information faxed. Pending continued stay approval at this time. Auth#[id number] Bia CHURCH, RCIS
--- NOTE | 2017-09-27 15:01 | MDS.RN ---
Information for the mds was obtained from review of the clinical record, interview of resident, staff, and direct observation of resident's care.
--- NOTE | 2017-09-27 15:49 | CASEMGMT ---
Brief interview for mental status (BIMS) and resident mood interview (PHQ-9) completed on this day. BIMS score 15. PHQ-9 score 11/11. Bia CHURCH, FORESTRY HUNTER
[2017-09-27 18:12] LABS: Urine Sodium 61 mmol/L (Not Establ.)
[2017-09-27 19:26] LABS: Osmolality, Urine 398 mOsm/KG
[2017-09-28] VITALS (8 sets, daily range): BP systolic 112–127; BP diastolic 64–65; PULSE 80–88; RESP 18–22; TEMP 36.4–36.8; O2SAT 98
[2017-09-28] MEDS: Albuterol 2.5 MG/3 ML VIAL.NEB. INHALATION ×6 (03:29→23:25)
[2017-09-28] MEDS: LORazepam 1 MG Tablet PO ×4 (05:45→23:26)
[2017-09-28] MEDS: Pantoprazole Sodium 40 MG Tablet PO (05:47)
[2017-09-28] MEDS: guaiFENesin 1,200 MG Tablet 1200 MG PO ×2 (05:47→16:46)
[2017-09-28] MEDS: Loratadine 10 MG Tablet PO (05:47)
[2017-09-28] MEDS: Polyethylene Glycol 3350 17 GM PACKET PO (05:47)
[2017-09-28] MEDS: Senna/Docusate Sodium 1 Tablet PO ×2 (05:47→16:46)
[2017-09-28] MEDS: Menthol/Lanolin/Calamine/Znox 113 GM Tube 1 APPLIC TOPICAL ×2 (05:49→16:45)
[2017-09-28] MEDS: Enoxaparin 40 MG/0.4 ML Syringe SC (05:49)
[2017-09-28] MEDS: Finasteride 5 MG Tablet PO (05:50)
[2017-09-28] MEDS: Tamsulosin HCl 0.4 MG Capsule PO ×2 (08:04→16:46)
[2017-09-28] MEDS: Aspirin 81 MG TAB.CHEW PO (08:04)
[2017-09-28] MEDS: Folic Acid 1 MG Tablet PO (08:05)
[2017-09-29] VITALS (9 sets, daily range): BP systolic 117; BP diastolic 63; PULSE 80–106; RESP 16–20; TEMP 36.8; O2SAT 94–99
[2017-09-29] MEDS: Albuterol 2.5 MG/3 ML VIAL.NEB. INHALATION ×7 (03:30→23:00)
[2017-09-29 05:45] LABS: Anion Gap 5 (5-15); BUN 17 mg/dL (7-18); BUN/Creat Ratio 21.9 RATIO (10-20); Calcium,Total 8.2 mg/dL (8.5-10.1); Chloride 87 mmol/L (98-107); Creatinine, Serum 0.78 mg/dL (0.70-1.30); EST Glomerular Filtration Rate 102 mL/min (>60); Est Glom Filt Rate - Afr Amer 124 mL/min (>60); Estimated Creatinine Clearance 52.61 ml/min; Glucose 87 mg/dL (74-106); Potassium 4.6 mmol/L (3.5-5.1); Sodium Level 129 mmol/L (136-145)
[2017-09-29] MEDS: Menthol/Lanolin/Calamine/Znox 113 GM Tube 1 APPLIC TOPICAL ×2 (05:52→17:57)
[2017-09-29] MEDS: LORazepam 1 MG Tablet PO ×3 (05:52→17:24)
[2017-09-29] MEDS: Pantoprazole Sodium 40 MG Tablet PO (05:57)
[2017-09-29] MEDS: Polyethylene Glycol 3350 17 GM PACKET PO (05:57)
[2017-09-29] MEDS: Loratadine 10 MG Tablet PO (05:58)
[2017-09-29] MEDS: guaiFENesin 1,200 MG Tablet 1200 MG PO ×2 (05:58→17:24)
[2017-09-29] MEDS: Senna/Docusate Sodium 1 Tablet PO ×2 (05:58→17:24)
[2017-09-29] MEDS: Finasteride 5 MG Tablet PO (05:58)
[2017-09-29] MEDS: Enoxaparin 40 MG/0.4 ML Syringe SC (05:59)
[2017-09-29] MEDS: Tamsulosin HCl 0.4 MG Capsule PO ×2 (07:56→17:24)
[2017-09-29] MEDS: Aspirin 81 MG TAB.CHEW PO (07:56)
[2017-09-29] MEDS: Folic Acid 1 MG Tablet PO (07:56)
--- NOTE | 2017-09-29 11:35 | CASEMGMT ---
Insurance Continued stay denied with last cover day on 10/01/17 and discharge or resident financial responsibility to begin on 10/02/17. Auth#[id number] Bia CHURCH, ADDICTION MEDICINE PHYSICIAN
--- NOTE | 2017-09-29 12:01 | CASEMGMT ---
Addendum entered by Bia Avitia 09/29/17 12:12: Resident also reporting to have all needed durable medical equipment already set up within the home, including oxygen. Original Note: Social Work Spoke with resident in room. This marriage and family social worker communicating to resident that continued stay has been denied by resident insurance with a last cover day of 10/01/17 and resident discharge or financial responsibility to begin on 10/02/17. Resident voicing understanding and expressing concern about discharge on 10/02/17 as resident has no one to stay with resident on 10/02/17 since resident significant other works on Sundays. Resident voicing to also not feel strong enough to discharge home at this point. Resident reporting that if resident would need to discharge still that Tuesday would be a better day to discharge as resident significant other is home all day on Mondays and resident aides through the [place] will then begin on Tuesday again. At this time resident is requesting for an appeal. This marriage and family social worker communicating how an appeal works. Resident voicing understanding and initiating appeal. In the event that the appeal is not won resident is planning to continue with stay until Tuesday and is aware that there would be a private pay cost. Resident currently active with [facility] for private duty aides and is requesting for services to be increased. This marriage and family social worker also communicating that physical and occupational therapy are recommending for resident to continue with services within the home at the time resident does discharge, resident requesting for physical and occupational therapy to be set up through [facility] as well. Resident aware that referrals will be made to set up discharge needs in the event that the denial is not overturned. Support given. Telephone call to Nathan AMAYA. This marriage and family social worker leaving voicemail requesting for resident services to be increased. Telephone call to [facility], this marriage and family social worker communicating possible discharge date and making recommendation for physical and occupational therapy. Clinical information faxed. Will fax orders when obtained. Proposed discharge date: 10/02/17 or 10/03/17 pending appeal. Bia CHURCH, SHIFT SUPERVISOR FILM PROCESSING
[2017-09-29] MEDS: LORazepam 0.5 MG Tablet 1 MG PO (23:19)
--- NOTE | 2017-09-29 23:54 | DCINST_ITS ---
You will use the following diet at home:: No restrictions, Regular Your food should be the consistency of: Regular Your liquids should be the consistency of: Regular/Thin Discharge Activity: Return to Normal Activity, May Shower, Use Walker Weight Bearing Status: Weight bearing as tolerated Call your doctor if you observe: Fever of 101 or Higher, Inability to urinate, Inability to have a bowel movement, Shortness of breath, Chest pain, Uncontrolled pain Allergies/Adverse Reactions: Allergies atorvastatin [From Lipitor] Allergy (Verified 09/23/17 23:53) Other indomethacin [From Indocin] Allergy (Verified 09/23/17 23:53) Other primidone Allergy (Verified 09/23/17 23:53) Other sertraline [From Zoloft] Allergy (Verified 09/23/17 23:53) Other Medications to take at Discharge Folic Acid 1 mg PO DAILY@0800 09/07/17 Potassium Chloride 10 meq PO DAILY 09/07/17 Tamsulosin HCl [Flomax] 0.4 mg PO BID 09/07/17 Tiotropium [place] [Spiriva 18 MCG] 1 puff INHALATION DAILY 09/07/17 Aspirin [Aspirin, Baby] 81 mg PO DAILY@0800 09/08/17 Guaifenesin [Mucinex] 1,200 mg PO BID 09/14/17 Pantoprazole Sodium [Protonix] 40 mg PO DAILY 09/14/17 Acetaminophen 1,000 mg PO Q8 PRN 09/24/17 Albuterol Aerosols [Ventolin Aerosols] 2.5 mg INHALATION Q2H PRN PRN 09/24/17 Albuterol Aerosols [Ventolin Aerosols] 2.5 mg INHALATION Q4H PRN 09/24/17 Finasteride [Proscar] 5 mg PO DAILY 09/24/17 Loratadine [Claritin] 10 mg PO DAILY 09/24/17 Lorazepam [Ativan] 1 mg PO BID PRN #4 tab 09/24/17 Menthol/Lanolin/Calamine/Znox [Calmoseptine Ointment] 113 gm TP BID 09/24/17 Polyethylene Glycol 3350 [Miralax] 17 gm PO DAILY 09/24/17 Aspirin [Aspirin, Baby] 81 mg PO DAILY@0800 tab.chew 09/29/17 Finasteride [Proscar] 5 mg PO DAILY #30 tab 09/29/17 Fluticasone/Salmeterol [Advair 250/50 Mcg Diskus] 1 puff INHALATION BID #1 inhaler 09/29/17 Folic Acid 1 mg PO DAILY@0800 tablet 09/29/17 Guaifenesin [Mucinex] 1,200 mg PO BID #60 tab 09/29/17 Pantoprazole Sodium [Protonix] 40 mg PO DAILY #30 tab 09/29/17 Paroxetine HCl [Paxil] 20 mg PO QHS #30 tab 09/29/17 Potassium Chloride [K-Dur] 10 meq PO DAILYCM tablet 09/29/17 Tamsulosin HCl [Flomax] 0.4 mg PO BID@0830,1730 capsule 09/29/17 Tiotropium [place] [Spiriva 18 MCG] 1 puff INHALATION DAILY inhaler 09/29/17 The following prescriptions were given: Finasteride [Proscar] 5 mg PO DAILY #30 tab Pantoprazole Sodium [Protonix] 40 mg PO DAILY #30 tab Paroxetine HCl [Paxil] 20 mg PO QHS #30 tab Fluticasone/Salmeterol [Advair 250/50 Mcg Diskus] 1 puff INHALATION BID #1 inhaler Guaifenesin [Mucinex] 1,200 mg PO BID #60 tab Primary Care Physician: Torrey Davis MD [Primary Care Provider] - Please follow up with your Primary Care Physician in: 1 week. Proposed Discharge Date: 10/02/17
--- NOTE | 2017-09-29 23:57 | HHNOTE_ITS ---
Home Health Note - Plan Overview of reason of hospitalization: The patient is a 77 year old Male with below past medical history significant for oxygen dependent COPD for 8 years, hospitalized for acute on chronic respiratory failure secondary to COPD exacerbation, complicated by anxiety, admitted to TCU with debility, here for rehabilitation, strengthening, prior to discharge home with significant other. [] Discharge home with significant other, and Home health services. Home health ordered. Problems: Complete List of Medical Problems COPD with acute exacerbation (Acute) COPD exacerbation (Acute) BPH (benign prostatic hyperplasia) (Chronic) Acute and chronic respiratory failure (Acute) Anxiety (Chronic) Acne rosacea (Chronic) Hypokalemia (Chronic) Hyponatremia (Acute) Urinary retention due to benign prostatic hyperplasia (Acute) Acute and chronic respiratory failure with hypoxia (Acute) Spontaneous pneumothorax (Chronic) COLD (chronic obstructive lung disease) (Chronic) - Requirements and Reasons Disciplines Needed/Ordered: Physical Therapy Reason for Disciplines: Gait Training, Stair Training, Fall Prevention, Home Safety/Equipment Instruction, Balance and/or Posture Training, Transfer Training Related To: Limited/Poor Endurance, Shortness of Breath with Activity, Physical Impairments, Unsteady Gait/Balance, Fall Risk Patient is unable to leave the home: Without Aid of Supportive Devices (crutches , cane, wheelchair, walker), Without the assistance of another person - Additional Disciplines Additional Disciplines Needed/Ordered: Occupational Therapy, Home Health Aide
--- NOTE | 2017-09-29 23:57 | DS.PCM_ITS ---
Discharge Date and Diagnosis Date of Admission: 09/14/17 Date of Discharge: 10/02/17 - Secondary Discharge Diagnosis Chronic Problems BPH (benign prostatic hyperplasia) (Chronic) Anxiety (Chronic) Acne rosacea (Chronic) Hypokalemia (Chronic) Spontaneous pneumothorax (Chronic) COLD (chronic obstructive lung disease) (Chronic) Hospital Course and Treatment Imaging Results: 09/24/17 15:29 Diet: Regular Diet Food consistency:: Regular Liquid Consistency:: Regular/Thin Dietary Modifications:: Fluid Restricted Diet Is pt able to select menu?: Yes Diet Comments: fluid restriction 1500ml/24hr Labs (Last 48 Hours) 09/29/17 05:20 Sodium 129 L Potassium 4.6 Chloride 87 L Carbon Dioxide 37.0 H Anion Gap 5 BUN 17 Creatinine 0.78 Estim Creat Clear Calc 52.61 Est GFR (MDRD) Af Amer 124 Est GFR (MDRD) Non-Af 102 BUN/Creatinine Ratio 21.9 H Glucose 87 Calcium 8.2 L Operations: None Procedures: None Summary of Care Provided: The patient is a 77 year old Male with below past medical history significant for oxygen dependent COPD for 8 years, hospitalized for acute on chronic respiratory failure secondary to COPD exacerbation, complicated by anxiety, admitted to TCU with debility, here for rehabilitation, strengthening, prior to discharge home with significant other. [] Discharge home with significant other, and Home health services. Home health ordered. Discharge Diet: No Restrictions Discharge Activity: Return to Normal Activity, May Shower, Use Walker Weight Bearing Status: Weight bearing as tolerated Call your doctor if you observe: Fever of 101 or Higher, Inability to urinate, Inability to have a bowel movement, Shortness of breath, Chest pain, Uncontrolled pain Home Medications: Medications to take at Discharge Folic Acid 1 mg PO DAILY@0800 09/07/17 Potassium Chloride 10 meq PO DAILY 09/07/17 Tamsulosin HCl [Flomax] 0.4 mg PO BID 09/07/[address] Tiotrop[address] [employer] [Spiriva 18 MCG] 1 puff INHALATION DAILY 09/07/17 Aspirin [Aspirin, Baby] 81 mg PO DAILY@0800 09/08/17 Guaifenesin [Mucinex] 1,200 mg PO BID 09/14/17 Pantoprazole Sodium [Protonix] 40 mg PO DAILY 09/14/17 Acetaminophen 1,000 mg PO Q8 PRN 09/24/17 Albuterol Aerosols [Ventolin Aerosols] 2.5 mg INHALATION Q2H PRN PRN 09/24/17 Albuterol Aerosols [Ventolin Aerosols] 2.5 mg INHALATION Q4H PRN 09/24/17 Finasteride [Proscar] 5 mg PO DAILY 09/24/17 Loratadine [Claritin] 10 mg PO DAILY 09/24/17 Lorazepam [Ativan] 1 mg PO BID PRN #4 tab 09/24/17 Menthol/Lanolin/Calamine/Znox [Calmoseptine Ointment] 113 gm TP BID 09/24/17 Polyethylene Glycol 3350 [Miralax] 17 gm PO DAILY 09/24/17 Aspirin [Aspirin, Baby] 81 mg PO DAILY@0800 tab.chew 09/29/17 Finasteride [Proscar] 5 mg PO DAILY #30 tab 09/29/17 Fluticasone/Salmeterol [Advair 250/50 Mcg Diskus] 1 puff INHALATION BID #1 inhaler 09/29/17 Folic Acid 1 mg PO DAILY@0800 tablet 09/29/17 Guaifenesin [Mucinex] 1,200 mg PO BID #60 tab 09/29/17 Pantoprazole Sodium [Protonix] 40 mg PO DAILY #30 tab 09/29/17 Paroxetine HCl [Paxil] 20 mg PO QHS #30 tab 09/29/17 Potassium Chloride [K-Dur] 10 meq PO DAILYCM tablet 09/29/17 Tamsulosin HCl [Flomax] 0.4 mg PO BID@0830,1730 capsule 09/29/[address]rop[address] [employer] [Spiriva 18 MCG] 1 puff INHALATION DAILY inhaler 09/29/17 Following Prescrptions Were Given to Patient: Finasteride [Proscar] 5 mg PO DAILY #30 tab Pantoprazole Sodium [Protonix] 40 mg PO DAILY #30 tab Paroxetine HCl [Paxil] 20 mg PO QHS #30 tab Fluticasone/Salmeterol [Advair 250/50 Mcg Diskus] 1 puff INHALATION BID #1 inhaler Guaifenesin [Mucinex] 1,200 mg PO BID #60 tab Primary Care Physician: Torrey Davis MD [Primary Care Provider] - Please follow up with your Primary Care Physician in: 1 week. Disposition: Home with Home Health Minutes spent on discharge:: 35 Patient Condition:: Stable Meaningful Use Info Meaningful Use Diagnoses (Choose all that apply): None applicable
[2017-09-30] VITALS (9 sets, daily range): BP systolic 107; BP diastolic 60; PULSE 68–105; RESP 16–87; TEMP 36.6; O2SAT 94–97
[2017-09-30] MEDS: Albuterol 2.5 MG/3 ML VIAL.NEB. INHALATION ×6 (03:10→23:28)
[2017-09-30] MEDS: Polyethylene Glycol 3350 17 GM PACKET PO (03:29)
[2017-09-30] MEDS: guaiFENesin 1,200 MG Tablet 1200 MG PO ×2 (03:37→17:22)
[2017-09-30] MEDS: Senna/Docusate Sodium 1 Tablet PO ×2 (03:37→17:22)
[2017-09-30] MEDS: Menthol/Lanolin/Calamine/Znox 113 GM Tube 1 APPLIC TOPICAL ×2 (03:37→17:26)
[2017-09-30] MEDS: Finasteride 5 MG Tablet PO (03:37)
[2017-09-30] MEDS: Loratadine 10 MG Tablet PO (03:37)
[2017-09-30] MEDS: Pantoprazole Sodium 40 MG Tablet PO (03:37)
[2017-09-30] MEDS: Enoxaparin 40 MG/0.4 ML Syringe SC (05:26)
[2017-09-30] MEDS: LORazepam 1 MG Tablet PO ×4 (05:26→23:07)
[2017-09-30 06:54] LABS: Anion Gap 3 (5-15); BUN 15 mg/dL (7-18); BUN/Creat Ratio 18.5 RATIO (10-20); Calcium,Total 8.5 mg/dL (8.5-10.1); Chloride 88 mmol/L (98-107); Creatinine, Serum 0.81 mg/dL (0.70-1.30); EST Glomerular Filtration Rate 97 mL/min (>60); Est Glom Filt Rate - Afr Amer 118 mL/min (>60); Estimated Creatinine Clearance 64.95 ml/min; Glucose 89 mg/dL (74-106); Potassium 4.4 mmol/L (3.5-5.1); Sodium Level 130 mmol/L (136-145)
[2017-09-30] MEDS: Folic Acid 1 MG Tablet PO (08:14)
[2017-09-30] MEDS: Aspirin 81 MG TAB.CHEW PO (08:14)
[2017-09-30] MEDS: Tamsulosin HCl 0.4 MG Capsule PO ×2 (08:14→17:21)
--- NOTE | 2017-09-30 09:33 | NURSING ---
pt reported that he takes lasix at home, dr heller notified, new order received.
--- NOTE | 2017-09-30 16:51 | CASEMGMT ---
Social Work [facility] reporting to be able to accept resident for skilled services. Orders faxed. Proposed discharge date: 10/02/17 pending appeal. Bia CHURCH, ENGINEER SERGEANT
[2017-10-01] VITALS (10 sets, daily range): BP systolic 78–97; BP diastolic 48–59; PULSE 79–100; RESP 18–21; TEMP 36.4; O2SAT 97–99
[2017-10-01] MEDS: Menthol/Lanolin/Calamine/Znox 113 GM Tube 1 APPLIC TOPICAL ×2 (05:27→17:29)
[2017-10-01] MEDS: Furosemide 20 MG Tablet PO (05:30)
[2017-10-01] MEDS: Enoxaparin 40 MG/0.4 ML Syringe SC (05:30)
[2017-10-01] MEDS: guaiFENesin 1,200 MG Tablet 1200 MG PO ×2 (05:30→17:24)
[2017-10-01] MEDS: Loratadine 10 MG Tablet PO (05:31)
[2017-10-01] MEDS: Pantoprazole Sodium 40 MG Tablet PO (05:32)
[2017-10-01] MEDS: Finasteride 5 MG Tablet PO (05:32)
[2017-10-01] MEDS: Senna/Docusate Sodium 1 Tablet PO ×2 (05:32→17:24)
[2017-10-01] MEDS: LORazepam 1 MG Tablet PO ×3 (05:42→17:23)
--- NOTE | 2017-10-01 06:24 | NURSING ---
Pt given am medications with applesauce as requested. Initially unhappy with this nurse for placing whole small pills in applesauce, which pt spilled. Given new/full cup of applesauce and needed assistance getting pills down. Difficulty with large mucinex pill, leading to short coughing episode during which pt would not drink water, wanted only more applesauce. RN aware. Lung sounds clear, pt resting comfortably in bed. Was not agreeable to crushing mucinex, insisted on leaving it whole. 1:1, redirection effective and pt has no complaints. Continuing to monitor.
[2017-10-01] MEDS: Albuterol 2.5 MG/3 ML VIAL.NEB. INHALATION ×4 (08:05→22:33)
[2017-10-01] MEDS: Folic Acid 1 MG Tablet PO (08:43)
[2017-10-01] MEDS: Aspirin 81 MG TAB.CHEW PO (08:43)
[2017-10-01] MEDS: Tamsulosin HCl 0.4 MG Capsule PO ×2 (08:46→17:24)
--- NOTE | 2017-10-01 17:20 | NURSING ---
Per Porsche at [facility], resident lost his appeal, last day of coverage is today. Resident did want a reconsideration done, per Porsche could take up to 3 days.
--- NOTE | 2017-10-01 17:21 | NURSING ---
Dr. Vargas updated on pt's BP this afternoon, pt asymptomatic, N.O. to encourage fluids, pt aware. Dr. Vargas also updated that pt has been voiding frequently today, bladder scanned for 459 and then later bladder scanned for 499 PVR. N.O. to straight cath now to empty bladder, cont bladder scans and straight cath if >500. Pt updated.
[2017-10-02] VITALS (7 sets, daily range): BP systolic 129; BP diastolic 73; PULSE 82–102; RESP 17–25; TEMP 36.4; O2SAT 95–97
[2017-10-02] MEDS: LORazepam 1 MG Tablet PO ×5 (00:21→23:06)
[2017-10-02] MEDS: Albuterol 2.5 MG/3 ML VIAL.NEB. INHALATION ×6 (02:50→23:09)
[2017-10-02] MEDS: Menthol/Lanolin/Calamine/Znox 113 GM Tube 1 APPLIC TOPICAL ×2 (06:04→17:22)
[2017-10-02] MEDS: Senna/Docusate Sodium 1 Tablet PO ×2 (06:05→17:21)
[2017-10-02] MEDS: Finasteride 5 MG Tablet PO (06:05)
[2017-10-02] MEDS: Loratadine 10 MG Tablet PO (06:05)
[2017-10-02] MEDS: Furosemide 20 MG Tablet PO (06:05)
[2017-10-02] MEDS: guaiFENesin 1,200 MG Tablet 1200 MG PO ×2 (06:05→17:21)
[2017-10-02] MEDS: Pantoprazole Sodium 40 MG Tablet PO (06:05)
[2017-10-02] MEDS: Enoxaparin 40 MG/0.4 ML Syringe SC (06:06)
[2017-10-02 08:41] LABS: Anion Gap 3 (5-15); BUN 20 mg/dL (7-18); BUN/Creat Ratio 23.7 RATIO (10-20); Calcium,Total 7.9 mg/dL (8.5-10.1); Chloride 84 mmol/L (98-107); Creatinine, Serum 0.84 mg/dL (0.70-1.30); EST Glomerular Filtration Rate 93 mL/min (>60); Est Glom Filt Rate - Afr Amer 113 mL/min (>60); Estimated Creatinine Clearance 62.63 ml/min; Glucose 134 mg/dL (74-106); Potassium 4.2 mmol/L (3.5-5.1); Sodium Level 126 mmol/L (136-145)
[2017-10-02] MEDS: Tamsulosin HCl 0.4 MG Capsule PO ×2 (08:44→17:21)
[2017-10-02] MEDS: Folic Acid 1 MG Tablet PO (08:45)
[2017-10-02] MEDS: Aspirin 81 MG TAB.CHEW PO (08:45)
--- NOTE | 2017-10-02 10:34 | NURSING ---
Resident expressing concern that he doesn't have a ride home today and because his significant other isn't going to be home today to help him. Resident is aware that he lost his appeal and is financially responsible for staying today. Resident voicing understanding of this. for Drum Puller, will update Dr. Vargas.
--- NOTE | 2017-10-02 12:56 | NURSING ---
PT BLADDERED SCANED FOR 715 AFTER VOIDING 200. STRAIGHT CATHED FOR 600. PT TOLERATED WELL. PT HAS BEEN GETTING UP TO VOID THREW DAY TO ONLY VOID 100 -200 AT A TIME. AMITA PENA AWARE
--- NOTE | 2017-10-02 18:34 | NURSING ---
PT VOIDED 150, BLADDER SCANNED FOR 436. AMITA PENA AWARE
[2017-10-03 03:30] VITALS: PULSE 82; RESP 18
[2017-10-03] MEDS: Albuterol 2.5 MG/3 ML VIAL.NEB. INHALATION (03:30)
[2017-10-03] MEDS: LORazepam 1 MG Tablet PO ×2 (05:30→11:44)
[2017-10-03] MEDS: Loratadine 10 MG Tablet PO (05:37)
[2017-10-03] MEDS: Finasteride 5 MG Tablet PO (05:37)
[2017-10-03] MEDS: Pantoprazole Sodium 40 MG Tablet PO (05:37)
[2017-10-03] MEDS: Furosemide 20 MG Tablet PO (05:37)
[2017-10-03] MEDS: Menthol/Lanolin/Calamine/Znox 113 GM Tube 1 APPLIC TOPICAL (05:37)
[2017-10-03] MEDS: Enoxaparin 40 MG/0.4 ML Syringe SC (05:40)
[2017-10-03] MEDS: guaiFENesin 1,200 MG Tablet 1200 MG PO (05:40)
[2017-10-03 06:19] LABS: Absolute Lymphocyte Count 0.76 X10^3/ul (0.83-4.51); Absolute Neutrophil Count 4.1 X10^3/uL (2.0-7.7); Basophil# 0.01 X10^3/uL; Basophil% 0.2 % (0-1); Eosinophils% 1.9 % (0-5); Hematocrit 36.5 % (40-54); Hemoglobin 11.8 g/dl (13.0-16.5); Lymphocyte # 0.76 X10^3/ul (4.0); Lymphocyte % 14.3 % (19-41); Mean Corp Hgb Conc 32.3 g/gl (32-36); Mean Corpuscular Hgb 29.4 pg (27.0-32.0); Mean Corpuscular Volume 90.8 fL (80-94); Mean Platelet Vol. 8.4 fl (6.2-12.0); Monocyte# 0.37 X10^3/uL; Monocyte% 6.9 % (0-10); Neutrophil # 4.07 X10^3/uL (2.7-7.7); Neutrophil % 76.3 % (47-70); Platelet Count 132 K/mm3 (150-450); RBC Distribution Width SD 42.5 fl (35.1-43.9); Red Blood Count 4.02 M/mm3 (4.6-6.2); White Blood Count 5.3 K/mm3 (4.4-11.0)
[2017-10-03 06:25] VITALS: PULSE 85; RESP 20; O2SAT 96
[2017-10-03 06:30] VITALS: PULSE 83; RESP 20; O2SAT 95
[2017-10-03 06:35] LABS: Anion Gap 4 (5-15); BUN 16 mg/dL (7-18); BUN/Creat Ratio 21.9 RATIO (10-20); Calcium,Total 7.9 mg/dL (8.5-10.1); Chloride 82 mmol/L (98-107); Creatinine, Serum 0.73 mg/dL (0.70-1.30); EST Glomerular Filtration Rate 110 mL/min (>60); Est Glom Filt Rate - Afr Amer 133 mL/min (>60); Estimated Creatinine Clearance 52.61 ml/min; Glucose 89 mg/dL (74-106); Potassium 4.3 mmol/L (3.5-5.1); Sodium Level 124 mmol/L (136-145)
[2017-10-03 06:39] LABS: POSITIVE COUNT NO; POSITIVE DIFFERENTIAL NO; POSITIVE MORPHOLOGY NO
[2017-10-03] MEDS: Folic Acid 1 MG Tablet PO (07:45)
[2017-10-03] MEDS: Aspirin 81 MG TAB.CHEW PO (07:46)
[2017-10-03] MEDS: Tamsulosin HCl 0.4 MG Capsule PO (07:46)
[2017-10-03 09:36] VITALS: BP 120/74; PULSE 89; RESP 20; TEMP 36.8; O2SAT 98
[2017-10-03] MEDS: LORazepam 0.5 MG Tablet 1 MG PO (14:24)
--- NOTE | 2017-10-04 15:26 | CASEMGMT ---
Insurance Notified insurance of resident discharge on 10/03/17 to home with and home health services. Auth#[id number] Bia CHURCH, CREDIT RISK ANALYST
--- NOTE | 2017-10-11 09:54 | MDS.RN ---
Information for the mds was obtained from review of the clinical record, interview of resident, staff, and direct observation of resident's care.
--- NOTE | 2017-10-25 11:58 | CASEMGMT ---
Insurance Notified by [facility] that resident won second appeal, resident has already discharge from the facility and is home with home health services. Bia CHURCH, PRIMARY CARE PHYSICIAN
== END 2017-10-03 15:00 | disposition home health service (06) | DRG 947 ==
PROVIDERS: Admitting Provider Family Medicine Geriatric Medicine; Family Provider Internal Medicine; PCP Internal Medicine; Visit Provider Family Medicine Geriatric Medicine
DX: R53.81 Other malaise (principal); J96.20 Acute and chronic respiratory failure, unspecified whether with hypoxia or hypercapnia; Z99.81 Dependence on supplemental oxygen; J44.1 Chronic obstructive pulmonary disease with (acute) exacerbation; E87.1 Hypo-osmolality and hyponatremia; E55.9 Vitamin D deficiency, unspecified; F41.9 Anxiety disorder, unspecified; K21.9 Gastro-esophageal reflux disease without esophagitis; N40.1 Benign prostatic hyperplasia with lower urinary tract symptoms; R33.8 Other retention of urine; E87.6 Hypokalemia; L71.9 Rosacea, unspecified; Z79.899 Other long term (current) drug therapy; Z79.82 Long term (current) use of aspirin; Z79.51 Long term (current) use of inhaled steroids; Z79.52 Long term (current) use of systemic steroids; Z87.891 Personal history of nicotine dependence
CPT/HCPCS: 36415; 80048; 81001; 83930; 83935; 84300; 85025; 94640; 97110; 97116; 97162; 97165; 97530; 97535; 97802

== ENCOUNTER 2017-09-15 06:26 | Outpatient (RCR) | payer SELFPAY | END 2017-10-15 23:59 | LOC: PR 06:26 | PROVIDERS: Family Provider Internal Medicine; PCP Internal Medicine | DX: Z00.00 Encounter for general adult medical examination without abnormal findings (principal) ==

== ENCOUNTER 2017-09-23 23:43 | Observation (INO) | payer MEDICARE, OTHER, SELFPAY ==
[2017-09-23 23:48] VITALS: BP 158/75; PULSE 129; RESP 24; TEMP 37.6; O2SAT 90; BMI 24.3
--- NOTE | 2017-09-23 23:56 | RAD_ITS ---
STUDY: X-RAY CHEST REASON FOR EXAM: Male, 77 years old. Shortness of breath TECHNIQUE: Frontal view COMPARISON: None. FINDINGS: There is hyperinflation of the lungs consistent with chronic obstructive lung disease (COPD). There are NO infiltrates. There is no demonstrated pleural abnormality. Normal size heart. Normal mediastinum and klaus. Normal visualized pulmonary arteries. Normal visualized aortic arch and descending thoracic aorta. Normal visualized thoracic spine. Normal visualized ribs, clavicles, and shoulders. There is no demonstrated abnormality of the visualized soft tissue structures of the upper abdomen. RAD/Chest 1 View (Portable) IMPRESSION: There is NO acute cardiopulmonary abnormality. Electronically Signed: Wilber Horton MD at 1:19 EST , Service support ,
--- NOTE | 2017-09-23 23:56 | EKG12_ITS ---
Test Reason : SOB Blood Pressure : / mmHG Vent. Rate : 116 BPM Atrial Rate : 116 BPM P-R Int : 122 ms QRS Dur : 074 ms QT Int : 286 ms P-R-T Axes : 080 -81 076 degrees QTc Int : 397 ms Sinus tachycardia Left axis deviation Abnormal ECG Confirmed by ZAHIRA THORNTON, JULIAN ([id number]), videotape editor ALEJO CERVANTES ([id number]) on 09/26/2017 2:56:14 PM Referred By: DR MARI Confirmed By:JULIAN RODRIGES MD
[2017-09-24] VITALS (18 sets, daily range): BP systolic 94–122; BP diastolic 55–70; PULSE 78–120; RESP 16–28; TEMP 36.5–37.2; O2SAT 93–98; BMI 18.6; BMI 18.9
[2017-09-24] MEDS: Ipratropium/Albuterol Sulfate 3 ML AMPUL.NEB INHALATION ×6 (00:04→11:07)
[2017-09-24 00:35] LABS: Anion Gap 6 (5-15); BUN 20 mg/dL (7-18); BUN/Creat Ratio 21.9 RATIO (10-20); Calcium,Total 8.2 mg/dL (8.5-10.1); Chloride 85 mmol/L (98-107); Creatinine, Serum 0.92 mg/dL (0.70-1.30); EST Glomerular Filtration Rate 85 mL/min (>60); Est Glom Filt Rate - Afr Amer 103 mL/min (>60); Estimated Creatinine Clearance 56.63 ml/min; Glucose 114 mg/dL (74-106); Potassium 4.7 mmol/L (3.5-5.1); Sodium Level 127 mmol/L (136-145)
[2017-09-24 00:50] LABS: Absolute Neutrophil Count 20.4 X10^3/uL (2.0-7.7); Basophil# 0.01 X10^3/uL; Eosinophil# 0.01 X10^3/uL; Hematocrit 42.5 % (40-54); Lymphocyte % 2.3 % (19-41); Mean Corp Hgb Conc 32.9 g/gl (32-36); Mean Corpuscular Hgb 29.5 pg (27.0-32.0); Mean Corpuscular Volume 89.7 fL (80-94); Mean Platelet Vol. 9.2 fl (6.2-12.0); Monocyte# 0.88 X10^3/uL; Neutrophil # 20.43 X10^3/uL (2.7-7.7); Neutrophil % 93.4 % (47-70); Platelet Count 144 K/mm3 (150-450); RBC Distribution Width CV 13.3 % (11.6-14.6); RBC Distribution Width SD 43.2 fl (35.1-43.9); Red Blood Count 4.74 M/mm3 (4.6-6.2); White Blood Count 21.9 K/mm3 (4.4-11.0)
[2017-09-24 00:51] LABS: Differential Indicated SCAN CRITERIA MET; POSITIVE COUNT NO; POSITIVE DIFFERENTIAL YES; POSITIVE MORPHOLOGY NO
[2017-09-24 01:29] LABS: Differential Comment SCANNED; Platelet Estimate SLT DEC (ADEQ)
[2017-09-24] MEDS: MethylPREDNISolone 125 MG/2 ML Vial IV (01:38)
--- NOTE | 2017-09-24 01:47 | ED.VISSUMM ---
- ER Visit Summary Date of Service: 09/24/17 Chief Complaint: Dyspnea History of Present Illness: The patient is a 77 M sent down from TCU for increasing respiratory distress after walking back from the restroom. History of COPD on 4 L of oxygen. He has been in TCU for the past week recovering from a one-week hospital stay per patient. States he had pneumonia finish antibiotics. No chest pains. Wheezing. Denies any urinary symptoms. No nausea or vomiting. No fevers, chills, sweats. Status post 2 aerosol treatments up in TCU. Sent down here on 6 L of oxygen. He is a DNR CC, does not want any intubation. He states he does not want CPAP or BiPAP because he does not tolerate this. Remote tobacco history. Physical Examination: General: Alert and oriented ?3, speaking in partial sentences., HEENT: Normocephalic, atraumatic. Moist mucosa membranes Neck: supple, nontender. Cardiovascular: Regular tachycardic rate and rhythm, no murmurs Respiratory: Coarse breath sounds with expiratory wheezing lower lobes, mild distress Abdomen: Soft, nontender, nondistended Extremities: Nontender, no edema, pulses intact ?4 Neuro: no focal neurological deficits. Test Results: [] Emergency Department Course and Treatment: EKG sinus rate of [address] or T-wave changes. Troponin negative. Chest x-ray negative for acute process. CBC with a white count 21.9, hemoglobin 14. Creatinine 0.92. UA pending. Treatment Plan: Patient 90% on 6 L, and tachycardic mild tachypnea. He declines CPAP or BiPAP. Given aerosol treatments, Solu-Medrol. Workup initiated. No pneumonia on chest x-ray. Cardiac workup negative. White count was 21.9. I did add a UA and is pending at this time. Reevaluation is 95% on 5 L of oxygen. He had mild coarse breath sounds, additional aerosol treatments given. He is started on doxycycline for COPD exacerbation. He still tachycardic heart rate in the 120s. I spoke with hospitalist, Dr. Yan for evaluation for admission. Records reviewed at discharge in September 14 for noted COPD exacerbation. Disposition: Admission Impression: 1. COPD exacerbation 2. Acute respiratory failure 3. DNR CC This note was generated with [employer]ation software. It may contain incorrect words, spelling, and punctuation that were not noted in review of the chart prior to signing ED Disposition - Plan for ED Patient: Disposition: Acute Care Hospital [facility] Chief Complaint: Shortness of Breath Diagnosis: COPD exacerbation, Acute and chronic respiratory failure, DNR CC Referrals: Torrey Davis MD [Primary Care Provider] -
--- NOTE | 2017-09-24 01:52 | ED.DCSUM_ITS ---
- ER Visit Summary Date of Service: 09/24/17 Chief Complaint: Dyspnea History of Present Illness: The patient is a 77 M sent down from TCU for increasing respiratory distress after walking back from the restroom. History of COPD on 4 L of oxygen. He has been in TCU for the past week recovering from a one-week hospital stay per patient. States he had pneumonia finish antibiotics. No chest pains. Wheezing. Denies any urinary symptoms. No nausea or vomiting. No fevers, chills, sweats. Status post 2 aerosol treatments up in TCU. Sent down here on 6 L of oxygen. He is a DNR CC, does not want any intubation. He states he does not want CPAP or BiPAP because he does not tolerate this. Remote tobacco history. Physical Examination: General: Alert and oriented ?3, speaking in partial sentences., HEENT: Normocephalic, atraumatic. Moist mucosa membranes Neck: supple, nontender. Cardiovascular: Regular tachycardic rate and rhythm, no murmurs Respiratory: Coarse breath sounds with expiratory wheezing lower lobes, mild distress Abdomen: Soft, nontender, nondistended Extremities: Nontender, no edema, pulses intact ?4 Neuro: no focal neurological deficits. Test Results: [] Emergency Department Course and Treatment: EKG sinus rate of [address] or T- wave changes. Troponin negative. Chest x-ray negative for acute process. CBC with a white count 21.9, hemoglobin 14. Creatinine 0.92. UA pending. Treatment Plan: Patient 90% on 6 L, and tachycardic mild tachypnea. He declines CPAP or BiPAP. Given aerosol treatments, Solu-Medrol. Workup initiated. No pneumonia on chest x-ray. Cardiac workup negative. White count was 21.9. I did add a UA and is pending at this time. Reevaluation is 95% on 5 L of oxygen. He had mild coarse breath sounds, additional aerosol treatments given. He is started on doxycycline for COPD exacerbation. He still tachycardic heart rate in the 120s. I spoke with hospitalist, Dr. Yan for evaluation for admission. Records reviewed at discharge in September 14 for noted COPD exacerbation. Disposition: Admission Impression: 1. COPD exacerbation 2. Acute respiratory failure 3. DNR CC This note was generated with [employer] software. It may contain incorrect words, spelling, and punctuation that were not noted in review of the chart prior to signing ED Disposition - Plan for ED Patient: Disposition: Acute Care [facility] Chief Complaint: Shortness of Breath Diagnosis: COPD exacerbation, Acute and chronic respiratory failure, DNR CC Referrals: Torrey Davis MD [Primary Care Provider] -
[2017-09-24 02:08] LABS: Color, Urine Yellow (Yellow); Glucose, Dipstick Normal (Normal); Ketone-Dipstick 5 mg/dl (Negative); Leukocyte Esterase-Dipstick 500 /ul (Negative); Nitrite-Dipstick Negative (Negative); Occult Blood-Urine 250 /ul (Negative); Protein-Dipstick 30 mg/dl (Negative); Specific Gravity, Urine 1.015 (1.002-1.030); Urine Bilirubin Dipstick Negative (Negative); Urine Clarity Sl. Cloudy (Clear); Urine Urobilinogen Normal (Normal)
[2017-09-24 02:15] LABS: Bacteria 2+ /hpf (None Seen); Mucous, Urine 1+ /hpf (<or=2+); Red Blood Cells-Urine 0-5 SEEN /hpf (0-5); White Blood Cells 25-50 SEEN /hpf (0-5)
[2017-09-24 02:16] LABS: Squamous Epithelial Cells - UA 0 SEEN /hpf (0-5)
--- NOTE | 2017-09-24 03:23 | HP.PCM_ITS ---
Problem List (1) Hyponatremia Status: Acute (2) Urinary retention due to benign prostatic hyperplasia Status: Acute (3) Anxiety Status: Chronic (4) Hypokalemia Status: Chronic (5) Acute and chronic respiratory failure Status: Acute Qualifiers: (6) COPD exacerbation Status: Acute (7) Acute and chronic respiratory failure with hypoxia Status: Acute History of Present Illness Date of Admission: 09/24/17 Chief Complaint: Acute hypoxic respiratory failure The patient is a 77 year old male w/ h/o BPH, COPD, hyponatremia, CAD, and HTN admitted for acute hypoxic respiratory failure. He was sent down from TCU for acute respiratory failure. He went to the restroom and became hypoxic. He has been hypoxic for days and was supposed to be on bipap but refused. He is a DNR- CC but is unsure if he wants to be DNR-CC now. His coughing has been unchanged. He has been getting bronchodilator ATC. Nothing makes his SOB better or worse. He will be admitted to PCU for further workup. Past Medical History Past Medical History (Chronic Problems): Chronic Problems BPH (benign prostatic hyperplasia) (Chronic) Anxiety (Chronic) Acne rosacea (Chronic) Hypokalemia (Chronic) Spontaneous pneumothorax (Chronic) COLD (chronic obstructive lung disease) (Chronic) Allergies atorvastatin [From Lipitor] Allergy (Verified 09/23/17 23:53) Other indomethacin [From Indocin] Allergy (Verified 09/23/17 23:53) Other primidone Allergy (Verified 09/23/17 23:53) Other sertraline [From Zoloft] Allergy (Verified 09/23/17 23:53) Other Home Medications: Ambulatory Orders Medication Instructions Recorded Folic Acid 1 mg PO DAILY@0800 09/07/17 Furosemide [Lasix] 20 mg PO DAILY 09/07/17 Potassium Chloride 10 meq PO DAILY 09/07/17 Tamsulosin HCl [Flomax] 0.4 mg PO BID 09/07/17 Tiotropium [place] [Spiriva 18 MCG] 1 puff INHALATION DAILY 09/07/17 Aspirin [Aspirin, Baby] 81 mg PO DAILY@0800 09/08/17 Bisacodyl [Dulcolax] 5 mg PO DAILY PRN PRN tablet 09/14/17 Ensure Enlive 120 ml PO BID 09/14/17 Guaifenesin [Mucinex] 1,200 mg PO BID 09/14/17 Pantoprazole Sodium [Protonix] 40 mg PO DAILY 09/14/17 Prednisone 20 mg PO UD 09/14/17 Acetaminophen [Tylenol Tablet] 650 mg PO Q8H PRN PRN 09/24/17 Albuterol Aerosols [Ventolin 2.5 mg INHALATION Q2H PRN PRN 09/24/17 Aerosols] Albuterol Aerosols [Ventolin 2.5 mg INHALATION Q4H PRN 09/24/17 Aerosols] Enoxaparin [Lovenox] 40 mg SC DAILY@0600 09/24/17 Finasteride [Proscar] 5 mg PO DAILY 09/24/17 Fluticasone/Salmeterol [Advair 1 puff INHALATION BID 09/24/17 250/50 Mcg Diskus] Loratadine [Claritin] 10 mg PO DAILY 09/24/17 Lorazepam [Ativan] 1 mg PO 4X/DAY 09/24/17 Menthol/Lanolin/Calamine/Znox 113 gm TP BID 09/24/17 [Calmoseptine Ointment] Paroxetine HCl [Paxil] 20 mg PO QHS 09/24/17 Polyethylene Glycol 3350 [Miralax] 17 gm PO DAILY 09/24/17 Sennosides/Docusate Sodium 1 each PO BID 09/24/17 [Senna-Docusate Sodium Tablet] Surgical History: adenoidectomy, appendectomy, tonsillectomy Psychiatric History: Anxiety Smoking Status: Former smoker - *Family History Maternal History Items: Heart Disease Paternal History Items: Heart Disease Review of Systems Constitutional: Denies: Chills, Fever, Weight Change HEENT: Denies: Head Aches, Sinus Congestion, Sinus Drainage Cardiovascular: Denies: Chest Pain, Palpitations Respiratory: Reports: Cough, Shortness of breath at rest, Wheezing. Denies: Sputum production Gastrointestinal: Denies: Abdominal Pain, Nausea, Vomiting Genitourinary: Denies: Dysuria Musculoskeletal: Denies: Joint Pain, Joint Tenderness Skin: Denies: Rash, Wounds Neurological: Denies: Numbness, Tingling, Focal weakness Psychiatric: Denies: Anxiety, Depression, Homicidal Ideations, Suicidal Ideations Hematologic/ Lymphatic: Denies: Easy Bruising, Easy Bleeding VTE Information - Inpt Only VTE Present on Admission: No VTE Mechan Device Prophylaxis: SCD's VTE Pharm Prophylaxis ordered?: Yes Patient Problems: Active and Suspected Problems Hyponatremia (Acute) Urinary retention due to benign prostatic hyperplasia (Acute) - Physical Exam General: Alert, Oriented x3, Cooperative HEENT: Atraumatic, PERRLA, EOMI, Normocephalic Neck: Supple, No JVD, Negative Carotid Bruits Lungs: Normal air movement, Diminished, Rales, Short of Breath Cardiovascular: No murmurs, Tachycardic Abdomen: Bowel Sounds Present, Soft, Non Tender Extremities: No edema, Capillary Refill Less than 3 Seconds Skin: No rashes, No breakdown Musculoskeletal: No Tenderness to Palpation of Joints or Extremities Neurological: Cranial nerves II-XII grossly intact Psych/Mental Status: Normal Affect, Appropriate Vital Signs Temp Pulse Resp BP Pulse Ox 98.9 F 113 H 18 118/67 98 09/24/17 01:02 09/24/17 02:05 09/24/17 02:05 09/24/17 02:05 09/24/17 02:05 Oxygen Flow Rate (L/min) 5 Oxygen Delivery Method Nasal Cannula Weight: 66.5 kg Body Mass Index (BMI) 24.3 Laboratory Tests Past 24 Hrs 09/24/17 09/24/17 09/24/17 00:10 00:10 01:56 WBC 21.9 H RBC 4.74 Hgb 14.0 Hct 42.5 MCV 89.7 MCH 29.5 MCHC 32.9 RDW 13.3 RDW Differential 43.2 Plt Count 144 L MPV 9.2 Immature Gran % (Auto) 0.300 Neut % (Auto) 93.4 H Lymph % (Auto) 2.3 L Steele % (Auto) 4.0 Eos % (Auto) 0.0 Baso % (Auto) 0.0 Absolute Neuts (auto) 20.4 H Absolute Lymphs (auto) 0.50 L Total Counted Not Reportable Differential Comment SCANNED Platelet Estimate SLT DEC Sodium 127 L Potassium 4.7 Chloride 85 L Carbon Dioxide 36.0 H Anion Gap 6 BUN 20 H Creatinine 0.92 Estim Creat Clear Calc 56.63 Est GFR (MDRD) Af Amer 103 Est GFR (MDRD) Non-Af 85 BUN/Creatinine Ratio 21.9 H Glucose 114 H Calcium 8.2 L Troponin I < 0.02 Urine Color Yellow Urine Clarity Sl. Cloudy Urine pH 6.0 Ur Specific Tracy 1.015 Urine Protein 30 H Urine Glucose (UA) Normal Urine Ketones 5 H Urine Occult Blood 250 H Urine Nitrite Negative Urine Bilirubin Negative Urine Urobilinogen Normal Ur Leukocyte Esterase 500 H Urine RBC 0-5 SEEN Urine WBC 25-50 SEEN Ur Squamous Epith Cells 0 SEEN Urine Bacteria 2+ Urine Mucus 1+ Assessment/Plan Active and Suspected Problems Hyponatremia (Acute) Urinary retention due to benign prostatic hyperplasia (Acute) 77 year old male w/ h/o BPH, COPD, hyponatremia, CAD, and HTN admitted for acute hypoxic respiratory failure. He was sent down from TCU for acute respiratory failure. 1) Acute hypoxic respiratory failure: Probably secondary to COPD vs HCAP. Will start bronchodilator, steroid, and oxygen. May need bipap. May also consider increasing steroid. Cultures pending. C/w zosyn and vancomcyin. 2) Hyponatremia: Probably hypovolemia hyponatremia. Hydration. If no improvement, will consider serum osmol, urine osmol, TSH, cortisol and urine Na. 3) HCAP: Given leukocytosis and cough, will start zosyn and vanco. Cultures pending. Will repeat xray in AM as infiltrate my show once hydrated. 4) Prophylaxis: SCD / heparin.
--- NOTE | 2017-09-24 03:43 | NURSING ---
Pt would like us to notify Rev. Gino Burns at [facility] that pt is here.
[2017-09-24] MEDS: 0.9% Normal Saline 1,000 ML 100 ML IV (04:24)
[2017-09-24] MEDS: Enoxaparin 40 MG/0.4 ML Syringe SC (05:01)
[2017-09-24] MEDS: Piperacil/Tazobactam 3.375 GM/50 ML ML IV (05:03)
--- NOTE | 2017-09-24 08:00 | NURSING ---
The patient told this nurse that he is going to call his to notify about the transfer from TCU to PCU. This nurse asked the patient if he wanted anyone else notified, the patient said no.
[2017-09-24] MEDS: Aspirin 81 MG TAB.CHEW PO (08:07)
[2017-09-24] MEDS: Folic Acid 1 MG Tablet PO (08:08)
[2017-09-24] MEDS: Loratadine 10 MG Tablet PO (10:08)
[2017-09-24] MEDS: Tamsulosin HCl 0.4 MG Capsule PO (10:08)
[2017-09-24] MEDS: Polyethylene Glycol 3350 17 GM PACKET PO (10:09)
[2017-09-24] MEDS: guaiFENesin 1,200 MG Tablet 1200 MG PO (10:09)
[2017-09-24] MEDS: Pantoprazole Sodium 40 MG Tablet PO (10:10)
[2017-09-24] MEDS: Senna/Docusate Sodium 1 Tablet PO (10:10)
[2017-09-24] MEDS: Finasteride 5 MG Tablet PO (10:11)
--- NOTE | 2017-09-24 10:18 | CASEMGMT ---
Social Work Note Face to face with the pt to discuss discharge plan. Introduced self and role at [facility]. Pt known to SW from past admission. Pt admitted from TCU and intends on returning. Will need a pre-cert and will be here through the weekend. Pt inquires about Medicaid. Inform that it was initiated on his last admission and we had received a pending number meaning that they were processing it. Inform that [facility] on TCU, has likely been in touch with S, but SW can call [facility] on Tuesday to check on status, however it takes a few weeks to process and SW would not anticipate that it has been completely processed at this time. Pt expresses understanding. Plan: TCU pending pre-cert. Denisa Ferrari, BR[employer]HER [employer]ER, [employer]
--- NOTE | 2017-09-24 11:48 | PCM.PN.HOSP ---
Patient Problems: Active and Suspected Problems Acute and chronic respiratory failure with hypoxia (Acute) COPD with acute exacerbation (Acute) Subjective: Breathing better. Feels back to his baseline. Patient states that that with the event he was a strain have bowel movements and then was short of breath. Patient said that he is on 4 L chronically. Vitals/I&O's: Vital Signs Temp Pulse Resp BP Pulse Ox 36.7 C 84 16 94/55 L 97 09/24/17 10:01 09/24/17 11:07 09/24/17 11:07 09/24/17 10:01 09/24/17 11:12 Oxygen Flow Rate (L/min) 4 Oxygen Delivery Method Nasal Cannula Weight: 59.8 kg Body Mass Index (BMI) 18.9 Intake and Output for Last 24 Hours 09/22/17 09/23/17 09/24/17 23:59 23:59 23:59 Intake Total 442.5 / 442.5 Output Total 250 / 250 Balance 192.5 / 192.5 General: Alert, Cooperative, No apparent distress HEENT: Atraumatic, Normocephalic Neck: No Nodes, Thyroid Normal Size and Texture Lungs: No rhonchi, No wheeze, Diminished Cardiovascular: Regular rate, Regular Rhythm, Normal S1, Normal S2, No murmurs Abdomen: Bowel Sounds Present, Soft, Non Tender, Non-Distended, No Hepato-splenomegaly Extremities: No edema, No Calf Tenderness Psych/Mental Status: Normal Affect, Appropriate Microbiology Past 72 Hours 09/24/17 04:20 Mucosa - Nasopharyngeal Influenza Types A,B Direct FA (BRAN) - Final Current Medications Acetaminophen (Tylenol) 650 mg PO Q8H PRN PRN PRN Reason: Mild Pain (1-3)/Temp > 100.7 F Albuterol Sulfate (Ventolin Aerosols) 2.5 mg INHALATION Q2H PRN PRN PRN Reason: WHEEZING Albuterol/Ipratropium (Duoneb) 3 ml INHALATION Q4H.RT [facility] Last Admin: 09/24/17 11:07 Dose: 3 ml Aspirin (Aspirin, Baby) 81 mg PO DAILY@0800 [facility] Last Admin: 09/24/17 08:07 Dose: 81 mg Bisacodyl (Dulcolax) 5 mg PO DAILY PRN PRN PRN Reason: Constipation Enoxaparin Sodium (Lovenox) 40 mg SC DAILY@0600 [facility] Last Admin: 09/24/17 05:01 Dose: 40 mg Finasteride (Proscar) 5 mg PO DAILY [facility] Last Admin: 09/24/17 10:11 Dose: 5 mg Folic Acid (Folic Acid) 1 mg PO DAILY@0800 [facility] Last Admin: 09/24/17 08:08 Dose: 1 mg Guaifenesin (Mucinex) 1,200 mg PO BID [facility] Last Admin: 09/24/17 10:09 Dose: 1,200 mg Sodium Chloride () 1,000 mls @ 100 mls/hr IV .Q10H [facility] Last Admin: 09/24/17 04:24 Dose: 100 mls/hr Piperacillin Sod/Tazobactam Sod (Zosyn) 3.375 gm in 50 mls @ 12.5 mls/hr IV Q8 [facility] Last Admin: 09/24/17 05:03 Dose: 12.5 mls/hr Vancomycin HCl 750 mg/ Sodium (Chloride) 265 mls @ 265 mls/hr IV Q12H [facility] Loratadine (Claritin) 10 mg PO DAILY [facility] Last Admin: 09/24/17 10:08 Dose: 10 mg Lorazepam (Ativan) 1 mg PO 4X/DAY [facility] Last Admin: 09/24/17 10:03 Dose: Not Given Nutritional Formula (Lactose Free) (Ensure Enlive) 120 ml PO BID [facility] Last Admin: 09/24/17 10:17 Dose: 120 ml Pantoprazole Sodium (Protonix) 40 mg PO DAILY [facility] Last Admin: 09/24/17 10:10 Dose: 40 mg Paroxetine HCl (Paxil) 20 mg PO QHS [facility] Polyethylene Glycol (Miralax) 17 gm PO DAILY [facility] Last Admin: 09/24/17 10:09 Dose: 17 gm Potassium Chloride (K-Dur) 10 meq PO DAILYCM [facility] Last Admin: 09/24/17 08:08 Dose: 10 meq [facility]: 09/26/17 08:01 Last Admin: 09/24/17 08:08 Dose: 10 mg Senna/Docusate Sodium (Senokot-S, Gaye-Colace) 1 tablet PO BID [facility] Last Admin: 09/24/17 10:10 Dose: 1 tablet Sodium Chloride () 5 - 30 ml IV UD PRN PRN Reason: SALINE FLUSH Tamsulosin HCl (Flomax) 0.4 mg PO BID [facility] Last Admin: 09/24/17 10:08 Dose: 0.4 mg Assessment/Plan Active and Suspected Problems Acute and chronic respiratory failure with hypoxia (Acute) COPD with acute exacerbation (Acute) 1. Acute hypoxic respiratory failure on chronic respiratory failure Patient back to baseline. I feel that this is a transient events related with the patient straining to have a bowel movement. With straining, patient was holding his breath that led to his acute hypoxia. I personally reviewed the patient's chest x-ray shows chronic changes and essentially unchanged from September 07. Discontinue antibiotics as I do not feel the patient has pneumonia May been a component of some COPD as well but I am not really sure there is really an acute flare on top of his chronic COPD. Given that patient was already on prednisone from his last hospitalization I would recommend a taper of steroids over 2 weeks to off. 2. Acute COPD exacerbation Above I do not feel that this is necessary an acute exacerbation but would just put patient on prednisone taper as well as breathing treatments. Discharge back to the transitional care unit.
--- NOTE | 2017-09-24 11:52 | PN_ITS ---
Patient Problems: Active and Suspected Problems Acute and chronic respiratory failure with hypoxia (Acute) COPD with acute exacerbation (Acute) Subjective: Breathing better. Feels back to his baseline. Patient states that that with the event he was a strain have bowel movements and then was short of breath. Patient said that he is on 4 L chronically. Vitals/I&O's: Vital Signs Temp Pulse Resp BP Pulse Ox 36.7 C 84 16 94/55 L 97 09/24/17 10:01 09/24/17 11:07 09/24/17 11:07 09/24/17 10:01 09/24/17 11:12 Oxygen Flow Rate (L/min) 4 Oxygen Delivery Method Nasal Cannula Weight: 59.8 kg Body Mass Index (BMI) 18.9 Intake and Output for Last 24 Hours 09/22/17 09/23/17 09/24/17 23:59 23:59 23:59 Intake Total 442.5 / 442.5 Output Total 250 / 250 Balance 192.5 / 192.5 General: Alert, Cooperative, No apparent distress HEENT: Atraumatic, Normocephalic Neck: No Nodes, Thyroid Normal Size and Texture Lungs: No rhonchi, No wheeze, Diminished Cardiovascular: Regular rate, Regular Rhythm, Normal S1, Normal S2, No murmurs Abdomen: Bowel Sounds Present, Soft, Non Tender, Non-Distended, No Hepato- splenomegaly Extremities: No edema, No Calf Tenderness Psych/Mental Status: Normal Affect, Appropriate Microbiology Past 72 Hours 09/24/17 04:20 Mucosa - Nasopharyngeal Influenza Types A,B Direct FA (BRAN) - Final Current Medications Acetaminophen (Tylenol) 650 mg PO Q8H PRN PRN PRN Reason: Mild Pain (1-3)/Temp > 100.7 F Albuterol Sulfate (Ventolin Aerosols) 2.5 mg INHALATION Q2H PRN PRN PRN Reason: WHEEZING Albuterol/Ipratropium (Duoneb) 3 ml INHALATION Q4H.RT [facility] Last Admin: 09/24/17 11:07 Dose: 3 ml Aspirin (Aspirin, Baby) 81 mg PO DAILY@0800 [facility] Last Admin: 09/24/17 08:07 Dose: 81 mg Bisacodyl (Dulcolax) 5 mg PO DAILY PRN PRN PRN Reason: Constipation Enoxaparin Sodium (Lovenox) 40 mg SC DAILY@0600 [facility] Last Admin: 09/24/17 05:01 Dose: 40 mg Finasteride (Proscar) 5 mg PO DAILY [facility] Last Admin: 09/24/17 10:11 Dose: 5 mg Folic Acid (Folic Acid) 1 mg PO DAILY@0800 [facility] Last Admin: 09/24/17 08:08 Dose: 1 mg Guaifenesin (Mucinex) 1,200 mg PO BID [facility] Last Admin: 09/24/17 10:09 Dose: 1,200 mg Sodium Chloride () 1,000 mls @ 100 mls/hr IV .Q10H [facility] Last Admin: 09/24/17 04:24 Dose: 100 mls/hr Piperacillin Sod/Tazobactam Sod (Zosyn) 3.375 gm in 50 mls @ 12.5 mls/hr IV Q8 [facility] Last Admin: 09/24/17 05:03 Dose: 12.5 mls/hr Vancomycin HCl 750 mg/ Sodium (Chloride) 265 mls @ 265 mls/hr IV Q12H [facility] Loratadine (Claritin) 10 mg PO DAILY [facility] Last Admin: 09/24/17 10:08 Dose: 10 mg Lorazepam (Ativan) 1 mg PO 4X/DAY [facility] Last Admin: 09/24/17 10:03 Dose: Not Given Nutritional Formula (Lactose Free) (Ensure Enlive) 120 ml PO BID [facility] Last Admin: 09/24/17 10:17 Dose: 120 ml Pantoprazole Sodium (Protonix) 40 mg PO DAILY [facility] Last Admin: 09/24/17 10:10 Dose: 40 mg Paroxetine HCl (Paxil) 20 mg PO QHS [facility] Polyethylene Glycol (Miralax) 17 gm PO DAILY [facility] Last Admin: 09/24/17 10:09 Dose: 17 gm Potassium Chloride (K-Dur) 10 meq PO DAILYCM [facility] Last Admin: 09/24/17 08:08 Dose: 10 meq [facility]: 09/26/17 08:01 Last Admin: 09/24/17 08:08 Dose: 10 mg Senna/Docusate Sodium (Senokot-S, Gaye-Colace) 1 tablet PO BID [facility] Last Admin: 09/24/17 10:10 Dose: 1 tablet Sodium Chloride () 5 - 30 ml IV UD PRN PRN Reason: SALINE FLUSH Tamsulosin HCl (Flomax) 0.4 mg PO BID [facility] Last Admin: 09/24/17 10:08 Dose: 0.4 mg Assessment/Plan Active and Suspected Problems Acute and chronic respiratory failure with hypoxia (Acute) COPD with acute exacerbation (Acute) 1. Acute hypoxic respiratory failure on chronic respiratory failure * Patient back to baseline. * I feel that this is a transient events related with the patient straining to have a bowel movement. With straining, patient was holding his breath that led to his acute hypoxia. * I personally reviewed the patient's chest x-ray shows chronic changes and essentially unchanged from September 07. * Discontinue antibiotics as I do not feel the patient has pneumonia * May been a component of some COPD as well but I am not really sure there is really an acute flare on top of his chronic COPD. * Given that patient was already on prednisone from his last hospitalization I would recommend a taper of steroids over 2 weeks to off. 2. Acute COPD exacerbation * Above I do not feel that this is necessary an acute exacerbation but would just put patient on prednisone taper as well as breathing treatments. Discharge back to the transitional care unit.
--- NOTE | 2017-09-24 11:59 | PCM.TXEXTCAR ---
- Diet 09/24/17 09:45 Diet: Regular Diet Is pt able to select menu?: Yes - Routine Orders/Code Status Routine Lab Work: CBC - Q Tuesday, BMP - QM and - Wound(s) Nose Wound Type: Abrasion - Allergies/Procedures Done in Hospital Allergies/Adverse Reactions: Allergies atorvastatin [From Lipitor] Allergy (Verified 09/23/17 23:53) Other indomethacin [From Indocin] Allergy (Verified 09/23/17 23:53) Other primidone Allergy (Verified 09/23/17 23:53) Other sertraline [From Zoloft] Allergy (Verified 09/23/17 23:53) Other - Type of Care/Length of Stay Estimated LOS: Convalescent Care Less Than 30 days Type of Care Needed: Skilled Rehab Potential: Fair Prognosis: Fair - Additional Orders/Day of Discharge Day of Discharge: 09/24/17 - Dietary and Speech Recommendations Dietitian Recommendations/Changes: Suggest Regular diet r/t compromised appetite. Continue Ensure Enlive BID on medpass. Will add Magic Cup BID for additional nutrition if consumed - Follow Up Care Primary Care Physician: Torrey Davis MD [Primary Care Provider] - Within 2 Weeks
--- NOTE | 2017-09-24 12:01 | PCM.DC.SUM ---
Discharge Date and Diagnosis - Problem List Patient Problems: Active and Suspected Problems COPD with acute exacerbation (Acute) Hyponatremia (Acute) Acute and chronic respiratory failure with hypoxia (Acute) Date of Admission: 09/24/17 Date of Discharge: 09/24/17 - Primary Discharge Diagnosis Active and Suspected Problems COPD with acute exacerbation (Acute) Acute and chronic respiratory failure with hypoxia (Acute) - Secondary Discharge Diagnosis Chronic Problems BPH (benign prostatic hyperplasia) (Chronic) Anxiety (Chronic) Acne rosacea (Chronic) Hypokalemia (Chronic) Spontaneous pneumothorax (Chronic) COLD (chronic obstructive lung disease) (Chronic) Hospital Course and Treatment Imaging Results: Clinical Impression(s) from Imaging Studies Chest X-Ray 09/23/17 23:56 IMPRESSION: There is NO acute cardiopulmonary abnormality. Electronically Signed: Wilber Horton MD at 1:19 EST , Service support , Operations: None Procedures: None Summary of Care Provided: The patient is a 77 year old M who is 3 have bowel movement and then became short of breath. Patient has a chronic respiratory failure on 4 L nasal cannula. Patient dropped down to 6%. This is while patient is in the transitional care unit. Patient was brought to the emergency room where patient was found to be hyponatremic with sodium of 127, was 129 2 days prior. Patient also had a white count of 21,000 where it was 8.62 days prior. Patient was not having fever or chills. Chest x-ray was unremarkable for any infiltrate the patient was started on vancomycin and Zosyn. Patient has remained stable on 4 L nasal cannula here. I do not feel any reason to continue to monitor this patient in the hospital and I feel that he can be safely discharged back to the transitional care unit for further management of his therapy and rehab and also just for some routine blood work. In regards to leukocytosis and may been reactive as he is not demonstrating any fever or chills but also the fact he was also on steroids as well. Patient was on steroids were his blood counts checked on the eighth as well but I think this can be further monitored. For the patient's hyponatremia, I am unclear as to etiology of the but patient has had bouts of hyponatremia in the past. I recommend holding off on the patient's Lasix and have a routine blood work hereafter. [] Discharge Diet: Low fat/ Low Cholesterol, 6 Cup Fluid Restriction, 2000 mg Sodium Diet Discharge Activity: Return to Normal Activity Call your doctor if you observe: Fever of 101 or Higher, Shortness of breath, Chest pain Home Medications: Medications to take at Discharge Folic Acid 1 mg PO DAILY@0800 09/07/17 Potassium Chloride 10 meq PO DAILY 09/07/17 Tamsulosin HCl [Flomax] 0.4 mg PO BID 09/07/17 Tiotropium [place] [Spiriva 18 MCG] 1 puff INHALATION DAILY 09/07/17 Aspirin [Aspirin, Baby] 81 mg PO DAILY@0800 09/08/17 Bisacodyl [Dulcolax] 5 mg PO DAILY PRN PRN tablet 09/14/17 Ensure Enlive 120 ml PO BID 09/14/17 Guaifenesin [Mucinex] 1,200 mg PO BID 09/14/17 Pantoprazole Sodium [Protonix] 40 mg PO DAILY 09/14/17 Acetaminophen 1,000 mg PO Q8 PRN 09/24/17 Albuterol Aerosols [Ventolin Aerosols] 2.5 mg INHALATION Q2H PRN PRN 09/24/17 Albuterol Aerosols [Ventolin Aerosols] 2.5 mg INHALATION Q4H PRN 09/24/17 Enoxaparin [Lovenox] 40 mg SC DAILY@0600 09/24/17 Finasteride [Proscar] 5 mg PO DAILY 09/24/17 Fluticasone/Salmeterol [Advair 250/50 Mcg Diskus] 1 puff INHALATION BID 09/24/17 Loratadine [Claritin] 10 mg PO DAILY 09/24/17 Lorazepam [Ativan] 1 mg PO BID PRN #4 tab 09/24/17 Menthol/Lanolin/Calamine/Znox [Calmoseptine Ointment] 113 gm TP BID 09/24/17 Paroxetine HCl [Paxil] 20 mg PO QHS 09/24/17 Polyethylene Glycol 3350 [Miralax] 17 gm PO DAILY 09/24/17 Prednisone 10 mg PO DAILY #20 tablet 09/24/17 Sennosides/Docusate Sodium [Senna-Docusate Sodium Tablet] 1 each PO BID 09/24/17 Following Prescrptions Were Given to Patient: Prednisone 10 mg PO DAILY #20 tablet Lorazepam [Ativan] 1 mg PO BID PRN #4 tab PRN Reason: Anxiety Primary Care Physician: Torrey Davis MD [Primary Care Provider] - Within 2 Weeks Disposition: Detention facility Minutes spent on discharge:: 32 Patient Condition:: Fair Meaningful Use Info Meaningful Use Diagnoses (Choose all that apply): None applicable Code Visit Inpatient E&M: 06108 Disch Hosp
--- NOTE | 2017-09-24 12:05 | DS.PCM_ITS ---
Discharge Date and Diagnosis - Problem List Patient Problems: Active and Suspected Problems COPD with acute exacerbation (Acute) Hyponatremia (Acute) Acute and chronic respiratory failure with hypoxia (Acute) Date of Admission: 09/24/17 Date of Discharge: 09/24/17 - Primary Discharge Diagnosis Active and Suspected Problems COPD with acute exacerbation (Acute) Acute and chronic respiratory failure with hypoxia (Acute) - Secondary Discharge Diagnosis Chronic Problems BPH (benign prostatic hyperplasia) (Chronic) Anxiety (Chronic) Acne rosacea (Chronic) Hypokalemia (Chronic) Spontaneous pneumothorax (Chronic) COLD (chronic obstructive lung disease) (Chronic) Hospital Course and Treatment Imaging Results: Clinical Impression(s) from Imaging Studies Chest X-Ray 09/23/17 23:56 IMPRESSION: There is NO acute cardiopulmonary abnormality. Electronically Signed: Wilber Horton MD at 1:19 EST , Service support , Operations: None Procedures: None Summary of Care Provided: The patient is a 77 year old M who is 3 have bowel movement and then became short of breath. Patient has a chronic respiratory failure on 4 L nasal cannula. Patient dropped down to 6%. This is while patient is in the transitional care unit. Patient was brought to the emergency room where patient was found to be hyponatremic with sodium of 127, was 129 2 days prior. Patient also had a white count of 21,000 where it was 8.62 days prior. Patient was not having fever or chills. Chest x-ray was unremarkable for any infiltrate the patient was started on vancomycin and Zosyn. Patient has remained stable on 4 L nasal cannula here. I do not feel any reason to continue to monitor this patient in the hospital and I feel that he can be safely discharged back to the transitional care unit for further management of his therapy and rehab and also just for some routine blood work. In regards to leukocytosis and may been reactive as he is not demonstrating any fever or chills but also the fact he was also on steroids as well. Patient was on steroids were his blood counts checked on the eighth as well but I think this can be further monitored. For the patient's hyponatremia, I am unclear as to etiology of the but patient has had bouts of hyponatremia in the past. I recommend holding off on the patient's Lasix and have a routine blood work hereafter. [] Discharge Diet: Low fat/ Low Cholesterol, 6 Cup Fluid Restriction, 2000 mg Sodium Diet Discharge Activity: Return to Normal Activity Call your doctor if you observe: Fever of 101 or Higher, Shortness of breath, Chest pain Home Medications: Medications to take at Discharge Folic Acid 1 mg PO DAILY@0800 09/07/17 Potassium Chloride 10 meq PO DAILY 09/07/17 Tamsulosin HCl [Flomax] 0.4 mg PO BID 09/07/17 Tiotropium [place] [Spiriva 18 MCG] 1 puff INHALATION DAILY 09/07/17 Aspirin [Aspirin, Baby] 81 mg PO DAILY@0800 09/08/17 Bisacodyl [Dulcolax] 5 mg PO DAILY PRN PRN tablet 09/14/17 Ensure Enlive 120 ml PO BID 09/14/17 Guaifenesin [Mucinex] 1,200 mg PO BID 09/14/17 Pantoprazole Sodium [Protonix] 40 mg PO DAILY 09/14/17 Acetaminophen 1,000 mg PO Q8 PRN 09/24/17 Albuterol Aerosols [Ventolin Aerosols] 2.5 mg INHALATION Q2H PRN PRN 09/24/17 Albuterol Aerosols [Ventolin Aerosols] 2.5 mg INHALATION Q4H PRN 09/24/17 Enoxaparin [Lovenox] 40 mg SC DAILY@0600 09/24/17 Finasteride [Proscar] 5 mg PO DAILY 09/24/17 Fluticasone/Salmeterol [Advair 250/50 Mcg Diskus] 1 puff INHALATION BID Loratadine [Claritin] 10 mg PO DAILY 09/24/17 Lorazepam [Ativan] 1 mg PO BID PRN #4 tab 09/24/17 Menthol/Lanolin/Calamine/Znox [Calmoseptine Ointment] 113 gm TP BID 09/24/17 Paroxetine HCl [Paxil] 20 mg PO QHS 09/24/17 Polyethylene Glycol 3350 [Miralax] 17 gm PO DAILY 09/24/17 Prednisone 10 mg PO DAILY #20 tablet 09/24/17 Sennosides/Docusate Sodium [Senna-Docusate Sodium Tablet] 1 each PO BID Following Prescrptions Were Given to Patient: Prednisone 10 mg PO DAILY #20 tablet Lorazepam [Ativan] 1 mg PO BID PRN #4 tab PRN Reason: Anxiety Primary Care Physician: Torrey Davis MD [Primary Care Provider] - Within 2 Weeks [facility] Minutes spent on discharge:: 32 Patient Condition:: Fair Meaningful Use Info Meaningful Use Diagnoses (Choose all that apply): None applicable Code Visit Inpatient E&M: 20776 Disch Hosp
--- NOTE | 2017-09-24 12:29 | CASEMGMT ---
Social Work Note Confirmed with Roula since pt was admitted after midnight and will be back dated as obs he can return this date without obtaining another pre-cert. Updated RN MAYI Restrepo - who will change to obs. Green sheet on chart for transfer back to TCU. Plan: TCU Denisa Ferrari, APARTMENT MANAGER, WRAPPER OPERATOR
[2017-09-24 13:22] LABS: Thyroid Stim Hormone (TSH) 2.05 uIU/mL (0.358-3.74)
[2017-09-24] MEDS: LORazepam 1 MG Tablet PO (13:51)
[2017-09-24 14:13] LABS: Osmolality, Serum 267 mOsm/KG (280-301)
[2017-09-24 18:02] LABS: Urine Sodium 9 mmol/L (Not Establ.)
[2017-09-24 18:11] LABS: Osmolality, Urine 289 mOsm/KG
== END 2017-09-24 14:09 | disposition skilled nursing facility (03) ==
LOC: ED 09-24 01:52 → PCU 09-24 07:02
PROVIDERS: Admitting Provider Internal Medicine; Emergency Provider Emergency Medicine; Family Provider Internal Medicine; PCP Internal Medicine
DX: J44.1 Chronic obstructive pulmonary disease with (acute) exacerbation (principal); J96.21 Acute and chronic respiratory failure with hypoxia; E87.1 Hypo-osmolality and hyponatremia; F41.9 Anxiety disorder, unspecified; E87.6 Hypokalemia; L71.9 Rosacea, unspecified; N40.1 Benign prostatic hyperplasia with lower urinary tract symptoms; R33.8 Other retention of urine; I25.10 Atherosclerotic heart disease of native coronary artery without angina pectoris; Z66 Do not resuscitate; Z79.899 Other long term (current) drug therapy; Z79.51 Long term (current) use of inhaled steroids; Z79.82 Long term (current) use of aspirin; Z99.81 Dependence on supplemental oxygen; Z87.01 Personal history of pneumonia (recurrent); Z87.891 Personal history of nicotine dependence
CPT/HCPCS: 36415; 71045; 80048; 81001; 83930; 83935; 84300; 84443; 84484; 85025; 87040; 87086; 87088; 87186; 87449; 87804; 93005; 94640; 96361; 96365; 96366; 96372; 96375; 97162; 97166; 97802; 99218; 99285; J7030; J7050; A4216; G0378; G8987; G8988

== ENCOUNTER 2017-12-19 10:04 | Emergency (ER) | payer MEDICARE, SELFPAY ==
--- NOTE | 2017-12-19 10:04 | DT_ITS ---
This patient was seen during an EMR downtime December 19, 2017 - December 26, 2017. This patient may have a combination of paper and electronic documentation or all paper documentation. All documentation is viewable within the e-chart portion of [facility] for each patient visit.
--- NOTE | 2017-12-19 10:45 | RAD_ITS ---
STUDY: X-RAY CHEST REASON FOR EXAM: Male, 77 years old. Trauma, status post fall TECHNIQUE: Single AP portable view of the chest. COMPARISON: 09/24/2017 FINDINGS: Cardiac monitoring leads overlie the chest. There is hyperinflation of the lungs consistent with chronic obstructive lung disease (COPD). There is no demonstrated pleural abnormality. Normal size heart. Normal mediastinum and klaus. Normal visualized pulmonary arteries. There is atherosclerotic calcification of the aortic arch with tortuosity. Normal visualized thoracic spine. Normal visualized ribs, clavicles, and shoulders. There is no demonstrated abnormality of the visualized soft tissue structures of the upper abdomen. RAD/Chest 1 View (Portable) IMPRESSION: COPD. Please note that this study was performed on 12/19/2017, but only now placed in my queue for interpretation, explaining the delay in reporting. Electronically Signed: Nathan Mark DO at 12:37 EDT Tel , Service support ,
--- NOTE | 2017-12-19 10:45 | RAD_ITS ---
STUDY: X-RAY - RIGHT HAND REASON FOR EXAM: Male, 77 years old. FALL, RT HAND PAIN. TECHNIQUE: 3 view(s) of the hand. COMPARISON: None. FINDINGS: There is no fracture or dislocation. There is minimal degenerative changes. RAD/Hand Min 3 Views IMPRESSION: No fracture or dislocation Electronically Signed: Lachelle Stein MD at 12:07 EDT Tel , Service support ,
--- NOTE | 2017-12-19 11:08 | CT_ITS ---
STUDY: CT BRAIN WITHOUT CONTRAST REASON FOR EXAM: Male, 77 years old. Fall. RADIATION DOSAGE (If Supplied By Facility): CTDIvol = ( 44.99 ) mGy, DLP = ( 779.24 ) mGycm TECHNIQUE: Transaxial CT imaging of the brain was performed without administration of intravenous contrast material. Individualized dose optimization techniques were used for this CT. COMPARISON: None. FINDINGS: There is a large scalp hematoma over the left forehead and the left side of the upper head. No definite skull fracture. A small thin subdural hematoma is seen under the left frontal bone and parietal bone, overlying the left frontal lobe. It measures no more than 4 mm. It is not causing any significant mass effect on the left cerebral hemisphere. No midline shift or compression of the lateral ventricle. The brain otherwise shows mild atrophy and White matter disease and no other abnormalities. The posterior fossa structures are normal. Paranasal sinuses and orbits are unremarkable. CT/Brain/Head without Contrast IMPRESSION: Small thin left subdural hematoma with little if any significant mass effect. Large scalp hematoma over the left side of the head. Note: This interpretation agrees with the preliminary result already delivered. Electronically Signed: Magdiel Oneil MD at 17:36 EDT , Service support ,
--- NOTE | 2017-12-19 11:08 | CT_ITS ---
STUDY: CT CERVICAL SPINE WITHOUT CONTRAST REASON FOR EXAM: Male, 77 years old. Fall. RADIATION DOSAGE (If Supplied By Facility): CTDIvol = ( 20.20 ) mGy, DLP = ( 338.23 ) mGycm TECHNIQUE: High resolution transaxial imaging was performed without contrast material. Sagittal and coronal images were reconstructed. Individualized dose optimization techniques were used for this CT. COMPARISON: None FINDINGS: There is a fracture through the base of the dens. There is approximately 3 mm of distraction and no significant anterior or posterior displacement of fragments. Fracture extends obliquely through the right side of the anterior body of C2 as seen on axial image 34. There is an intact articulation between the anterior process of C1 in the upper portion of the dens. There is intact articulation between the body of C2 and C3. Facet joints are intact all levels. No other acute abnormalities. Normal curvature and lordosis. Multilevel degenerative disc disease most pronounced at C4-C5. No compromise of the spinal canal is seen. Multilevel neural foraminal narrowing. Visualized lung apices are clear but show COPD. CT/Spine Cervical without Contras IMPRESSION: Fracture through the base of the dens, distracted by approximately 3 mm but no evidence for anterior or posterior displacement of fragments or dislocation. Note: This interpretation conforms with the previously delivered preliminary report. Electronically Signed: Magdiel Oneil MD at 17:39 EDT , Service support ,
[2017-12-22 11:05] LABS: Anion Gap 5 (5-15); BUN 20 mg/dL (7-18); BUN/Creat Ratio 18.2 RATIO (10-20); Calcium,Total 8.5 mg/dL (8.5-10.1); Chloride 97 mmol/L (98-107); EST Glomerular Filtration Rate 69 mL/min (>60); Est Glom Filt Rate - Afr Amer 84 mL/min (>60); Glucose 140 mg/dL (74-106); Potassium 3.8 mmol/L (3.5-5.1); Sodium Level 137 mmol/L (136-145)
[2017-12-22 16:55] LABS: Hematocrit 39.1 % (40-54); Hemoglobin 11.8 g/dl (13.0-16.5); Mean Corp Hgb Conc 30.2 g/gl (32-36); Mean Corpuscular Hgb 28.7 pg (27.0-32.0); Mean Corpuscular Volume 95.1 fL (80-94); Mean Platelet Vol. 10.4 fl (6.2-12.0); POSITIVE COUNT NO; POSITIVE DIFFERENTIAL NO; POSITIVE MORPHOLOGY NO; Platelet Count 107 K/mm3 (150-450); RBC Distribution Width CV 13.4 % (11.6-14.6); RBC Distribution Width SD 44.8 fl (35.1-43.9); Red Blood Count 4.11 M/mm3 (4.6-6.2); White Blood Count 8.9 K/mm3 (4.4-11.0)
[2017-12-22 16:56] LABS: Absolute Lymphocyte Count 0.64 X10^3/ul (0.83-4.51); Absolute Neutrophil Count 7.7 X10^3/uL (2.0-7.7); Basophil# 0.01 X10^3/uL; Basophil% 0.1 % (0-1); Eosinophil# 0.11 X10^3/uL; Eosinophils% 1.2 % (0-5); Lymphocyte # 0.64 X10^3/ul (4.0); Lymphocyte % 7.2 % (19-41); Monocyte# 0.45 X10^3/uL; Monocyte% 5.1 % (0-10); Neutrophil # 7.69 X10^3/uL (2.7-7.7); Neutrophil % 86.4 % (47-70)
== END 2017-12-19 12:20 | disposition short-term general hospital (02) ==
LOC: ED 12-21 12:15
PROVIDERS: Emergency Provider Emergency Medicine; Family Provider Internal Medicine; PCP Internal Medicine
DX: S06.5X0A Traumatic subdural hemorrhage without loss of consciousness, initial encounter (principal); W06.XXXA Fall from bed, initial encounter; I25.10 Atherosclerotic heart disease of native coronary artery without angina pectoris; J44.9 Chronic obstructive pulmonary disease, unspecified; I10 Essential (primary) hypertension; E78.00 Pure hypercholesterolemia, unspecified; S12.100A Unspecified displaced fracture of second cervical vertebra, initial encounter for closed fracture
CPT/HCPCS: 70450; 71045; 72125; 73130; 80048; 84484; 85025; 93005; 94640; 96361; 96374; 99284; J7030; A4216

== ENCOUNTER 2018-01-04 12:55 | Emergency (ER) | payer MEDICARE, OTHER, SELFPAY ==
[2018-01-04 12:57] VITALS: BP 138/76; PULSE 114; RESP 28; TEMP 37.1; O2SAT 92; BMI 20.4
--- NOTE | 2018-01-04 13:11 | CT_ITS ---
STUDY: CTA CHEST REASON FOR EXAM: Male, 77 years old. Shortness of breath and hypoxia. History of recent cervical fracture. RADIATION DOSAGE (If Supplied By Facility): CTDIvol = ( 8.69 ) mGy, DLP = ( 291.98 ) mGycm TECHNIQUE: The examination was performed with the intravenous administration of 75mL ml of Isovue 370 contrast material. Post-processing of the angiographic images was performed, with multiplanar reformation and 3D reconstruction. Individualized dose optimization techniques were used for this CT. COMPARISON: Comparison is made with prior study dated February 22, 2011. FINDINGS: Normal enhancement of the main pulmonary artery and right and left pulmonary arteries. Normal enhancement of the bilateral peripheral pulmonary arteries. There is no demonstrated pulmonary embolism. There is atherosclerotic calcification of the aortic arch with tortuosity. There is no demonstrated aortic dissection. Normal heart and pericardium. Normal mediastinum. Normal hilar regions. Normal visualized trachea and bronchi. Hyperinflation. Diffuse emphysematous changes worse in the upper lobes with multiple bolus changes. There is a 1.6 cm x 1.4 cm PICC-related nodule in the posterior aspect of the right upper lobe as seen on axial image #136. There is also evidence of a 7.6 mm x 6.7 mm noncalcified nodule in the posterior medial aspect of the left lower lobe. This is seen on axial image #111. There is also evidence of increased markings at the lung bases suggestive scarring. Normal pleura. Normal chest wall structures. There are degenerative changes of thoracic spine. Cholelithiasis. There is a 1.2 cm x 1.3 cm cystic nodule in the mid inferior portion of the right lobe of the liver. CT/CTA Chest W/WO Contrast IMPRESSION: 1.6 cm x 1.1 cm but the nodule in the posterior aspect of the right lower lobe as seen on image #135. 7.6 mm x 6.7 mm noncalcified nodule in the posterior medial aspect of the left lower lobe. Diffuse emphysematous changes are Scarring at both lung bases worse on the right side. 1.2 cm x 1.3 cm cystic nodule in mid to inferior portion of the right lobe of the liver. Electronically Signed: En Elaine MD at 15:45 EDT Tel [phone], Service support ,
--- NOTE | 2018-01-04 13:11 | EKG12_ITS ---
Test Reason : SOB Blood Pressure : / mmHG Vent. Rate : 104 BPM Atrial Rate : 104 BPM P-R Int : 124 ms QRS Dur : 074 ms QT Int : 318 ms P-R-T Axes : 086 -43 069 degrees QTc Int : 418 ms Sinus tachycardia with occasional Premature ventricular complexes Left axis deviation Abnormal ECG Confirmed by ANTONIO FAIR ([id number]), content editor ELIZABET SANTOYO ([id number]) on 01/09/2018 10:43:02 AM Referred By: LUCIANO Confirmed By:ANTONIO FAIR
[2018-01-04] MEDS: Ipratropium/Albuterol Sulfate 3 ML AMPUL.NEB INHALATION (13:34)
--- NOTE | 2018-01-04 13:34 | PCA ---
OLD EKG PRINTED
[2018-01-04 13:35] VITALS: PULSE 103; RESP 18
[2018-01-04 13:41] VITALS: O2SAT 96
[2018-01-04 13:46] LABS: Absolute Lymphocyte Count 0.54 X10^3/ul (0.83-4.51); Absolute Neutrophil Count 9.7 X10^3/uL (2.0-7.7); Basophil# 0.02 X10^3/uL; Basophil% 0.2 % (0-1); Differential Indicated SCAN CRITERIA MET; Eosinophil# 0.08 X10^3/uL; Eosinophils% 0.7 % (0-5); Hematocrit 33.3 % (40-54); Hemoglobin 10.1 g/dl (13.0-16.5); Lymphocyte # 0.54 X10^3/ul (4.0); Mean Corp Hgb Conc 30.3 g/gl (32-36); Mean Corpuscular Hgb 28.3 pg (27.0-32.0); Mean Corpuscular Volume 93.3 fL (80-94); Mean Platelet Vol. 8.9 fl (6.2-12.0); Monocyte# 0.54 X10^3/uL; Neutrophil # 9.69 X10^3/uL (2.7-7.7); Neutrophil % 89.1 % (47-70); POSITIVE COUNT NO; POSITIVE DIFFERENTIAL YES; POSITIVE MORPHOLOGY NO; Platelet Count 221 K/mm3 (150-450); RBC Distribution Width CV 13.8 % (11.6-14.6); RBC Distribution Width SD 46.9 fl (35.1-43.9); Red Blood Count 3.57 M/mm3 (4.6-6.2); White Blood Count 10.9 K/mm3 (4.4-11.0)
[2018-01-04] MEDS: LORazepam 2 MG/ML Syringe 0.5 MG IV ×2 (13:53→17:35)
[2018-01-04 14:07] LABS: Anion Gap 3 (5-15); BUN 15 mg/dL (7-18); BUN/Creat Ratio 16.6 RATIO (10-20); Calcium,Total 8.4 mg/dL (8.5-10.1); Chloride 96 mmol/L (98-107); EST Glomerular Filtration Rate 86 mL/min (>60); Est Glom Filt Rate - Afr Amer 104 mL/min (>60); Estimated Creatinine Clearance 60.81 ml/min; Glucose 164 mg/dL (74-106); Potassium 5.1 mmol/L (3.5-5.1); Sodium Level 135 mmol/L (136-145)
[2018-01-04 14:33] LABS: Differential Comment S
[2018-01-04 15:57] VITALS: BP 104/66; PULSE 104; RESP 22; O2SAT 94
--- NOTE | 2018-01-04 15:59 | ED.VISSUMM ---
- ER Visit Summary Date of Service: 01/04/18 Chief Complaint: Shortness of breath History of Present Illness: The patient is a 77 M who fell last week sustaining a C2 fracture and a small subdural. He has been at [facility] now and was reportedly having a panic attack per him however nursing staff there states that his respiratory rate was high and his pulse ox was in the 50s. Patient chronically wears oxygen. He denies any chest pain. He states he does feel very anxious and is making him short of breath. Physical Examination: Heart rate 114 respirations 28 pulse ox is 97% on his nasal cannula. Gen: Well-nourished well-developed Head: Normocephalic contusions noted Eyes: Perrl EOMI ENT: TMs clear no rhinorrhea moist mucous membranes Neck: Supple no lymphadenopathy [place] collar in place was not removed CVS: Tachycardic regular rate rhythm no murmurs normal S1-S2 Respiratory: No distress faint expiratory wheeze chest nontender tachypneic Abdomen: Soft nontender nondistended normal bowel sounds no masses Back: Nontender Extremity: Nontender no edema Skin: Normal color no rash Neuro: alert orientated ?3 CN II-XII intact normal strength sensation reflexes gait cerebellar Psych: Anxious Test Results: EKG showed a sinus tachycardia at a rate of 104. White count 10.9. Troponin [address] Muna of the chest did not demonstrate PE or infiltrate. Pulmonary nodule noted. Emergency Department Course and Treatment: Patient received Ativan as well as a breathing treatment. He feels significantly better on repeat examination. He will be discharged back to [facility]. Impression: 1. Anxiety 2. Dyspnea 3. Pulmonary nodule This note was generated with [employer] dictation software. It may contain incorrect words, spelling, and punctuation that were not noted in review of the chart prior to signing ED Disposition - Plan for ED Patient: Disposition: Home or Assisted Living Chief Complaint: Shortness of Breath Instructions: ED Stress React, ED Nodule Solitary Pulmonary Referrals: Torrey Davis MD [Primary Care Provider] - 3-5 Days
--- NOTE | 2018-01-04 16:04 | ED.DCSUM_ITS ---
- ER Visit Summary Date of Service: 01/04/18 Chief Complaint: Shortness of breath History of Present Illness: The patient is a 77 M who fell last week sustaining a C2 fracture and a small subdural. He has been at [facility] now and was reportedly having a panic attack per him however nursing staff there states that his respiratory rate was high and his pulse ox was in the 50s. Patient chronically wears oxygen. He denies any chest pain. He states he does feel very anxious and is making him short of breath. Physical Examination: Heart rate 114 respirations 28 pulse ox is 97% on his nasal cannula. Gen: Well-nourished well-developed Head: Normocephalic contusions noted Eyes: Perrl EOMI ENT: TMs clear no rhinorrhea moist mucous membranes Neck: Supple no lymphadenopathy [place] collar in place was not removed CVS: Tachycardic regular rate rhythm no murmurs normal S1-S2 Respiratory: No distress faint expiratory wheeze chest nontender tachypneic Abdomen: Soft nontender nondistended normal bowel sounds no masses Back: Nontender Extremity: Nontender no edema Skin: Normal color no rash Neuro: alert orientated ?3 CN II-XII intact normal strength sensation reflexes gait cerebellar Psych: Anxious Test Results: EKG showed a sinus tachycardia at a rate of 104. White count 10.9. Troponin 0 [address] Muna of the chest did not demonstrate PE or infiltrate. Pulmonary nodule noted. Emergency Department Course and Treatment: Patient received Ativan as well as a breathing treatment. He feels significantly better on repeat examination. He will be discharged back to [facility]. Impression: 1. Anxiety 2. Dyspnea 3. Pulmonary nodule This note was generated with [employer] dictation software. It may contain incorrect words, spelling, and punctuation that were not noted in review of the chart prior to signing ED Disposition - Plan for ED Patient: Disposition: Home or Assisted Living Chief Complaint: Shortness of Breath Instructions: ED Stress React, ED Nodule Solitary Pulmonary Referrals: Torrey Davis MD [Primary Care Provider] - 3-5 Days
[2018-01-04 17:46] VITALS: BP 156/72; PULSE 116; RESP 22; O2SAT 95
== END 2018-01-04 17:48 | disposition home or self-care (01) ==
PROVIDERS: Emergency Provider Emergency Medicine; Family Provider Internal Medicine; PCP Internal Medicine
DX: F41.9 Anxiety disorder, unspecified (principal); R06.00 Dyspnea, unspecified; R91.1 Solitary pulmonary nodule; I10 Essential (primary) hypertension; I25.10 Atherosclerotic heart disease of native coronary artery without angina pectoris; E78.00 Pure hypercholesterolemia, unspecified; J44.9 Chronic obstructive pulmonary disease, unspecified
CPT/HCPCS: 71275; 80048; 84484; 85025; 93005; 94640; 99285; Q9967; A4216

== ENCOUNTER → 2018-01-10 16:00 | Outpatient (CLI) | payer OTHER, MEDICARE, SELFPAY ==
--- NOTE | 2018-01-10 16:03 | CT_ITS ---
STUDY: CT BRAIN WITHOUT CONTRAST REASON FOR EXAM: Male, 77 years old. Subdural hematoma. RADIATION DOSAGE (If Supplied By Facility): CTDIvol = ( 44.99 ) mGy, DLP = ( 796.11 ) mGycm TECHNIQUE: Transaxial CT imaging of the brain was performed without administration of intravenous contrast material. Individualized dose optimization techniques were used for this CT. COMPARISON: Noncontrast CT brain December 19, 2017. FINDINGS: Left frontoparietal scalp swelling has nearly fully resolved. Normal calvarium. There is residual ill-defined density in the lateral right frontal extra-axial space. Lentiform shaped, 13 mm thick lateral left parietal extra-axial fluid density consistent with an evolving subdural hygroma. There is some mass effect on the adjacent left parietal lobe. There is stable 2.7 mm left to right subfalcine shift of midline on series 2 image 23. Normal white matter tracts of the cerebral hemispheres. Normal basal ganglia and thalami. Normal brainstem. Normal cerebellum. There is no intracranial hemorrhage. There are no findings of an acute ischemic infarction. Normal visualized paranasal sinuses. CT/Brain/Head without Contrast IMPRESSION: 1. Residual lateral left frontal subdural hematoma. A more defined 13 mm thick lentiform shaped involving left lateral parietal subdural hygroma is now apparent, exerting mild local mass effect on the left parietal lobe. 2. Left frontoparietal scalp swelling has nearly fully resolved. Electronically Signed: Woodrow Quinn MD at 16:53 EDT , Service support ,
--- NOTE | 2018-01-10 16:04 | CT_ITS ---
STUDY: CT CERVICAL SPINE WITHOUT CONTRAST REASON FOR EXAM: Male, 77 years old. Cervical fracture. RADIATION DOSAGE (If Supplied By Facility): CTDIvol = ( 15.75 ) mGy, DLP = ( 327.36 ) mGycm TECHNIQUE: High resolution transaxial imaging was performed without contrast material. Sagittal and coronal images were reconstructed. Individualized dose optimization techniques were used for this CT. COMPARISON: CT cervical spine December 19, 2017. FINDINGS: Normal craniovertebral junction. Transverse fracture through the base of the dens/odontoid process of C2 again noted. Dorsal angulation of the odontoid process has decreased from 23 to 17 degrees, but there is persistent 3 mm dorsal displacement. There are stable degenerative changes of the anterior atlantoaxial articulation. There is stable one half width dorsal displacement of the C1 lateral masses relative to C2. There is a stable exaggerated cervical lordosis. C2-3: Posterior lateral endplate spurring, greater on the left. Stable moderate disc height narrowing. Stable moderate narrowing of the bilateral facet articulations with periarticular spurring. Normal central canal and intervertebral neuroforamina. C3-4: Posterior lateral endplate spurring, greater on the left. Stable moderate disc height narrowing. Stable moderate narrowing of the bilateral facet articulations with periarticular spurring. Normal central canal. Mild osseous encroachment on the left intervertebral neuroforamen. C4-5: There is circumferential endplate osteophytes. Moderate disc height narrowing, most prominent posteriorly, with mild central posterior disc bulge. Moderately severe degenerative narrowing of the bilateral facet articulations with periarticular spurring, the latter greater on the left. Minor osseous encroachment on the anterior central canal. Mild osseous narrowing of the left intervertebral neuroforamen. C5-6: Minor endplate spurring. Mild posterior disc height narrowing. Moderately severe degenerative narrowing of the bilateral facet articulations with periarticular spurring, the latter greater on the left. Normal central canal and intervertebral neuroforamina. C6-7: Early posterolateral endplate spurring. Mild posterior disc height narrowing. Atrophic degenerative arthrosis of bilateral facet articulations with moderately severe joint space narrowing. 1-2 mm anterolisthesis of C6 on C7. Normal central canal and intervertebral neuroforamina. C7-T1: Early endplate spurring. Borderline disc height narrowing. Hypertrophic degenerative arthrosis of bilateral facet articulations with severe joint space narrowing. 1-2 mm anterolisthesis of C7 on T1. Normal central canal and intervertebral neuroforamina. There is stable mild swelling of the prevertebral soft tissue structures at C1-2. There are diffuse emphysematous blebs in the visualized lung apices. Atherosclerotic calcifications seen at the bilateral carotid artery bifurcations. CT/Spine Cervical without Contras IMPRESSION: 1. Fracture at the base of the dens again identified. There is mild decreased posterior angulation but stable posterior displacement of the odontoid fragment. One half width dorsal displacement of the C1 lateral masses relative to C2 unchanged. There are stable prevertebral soft tissue swelling at this level. 2. Stable multilevel degenerative changes, as described above. 3. Mild atherosclerotic calcifications of the bilateral carotid arteries. 4. Emphysematous changes seen in the lung apices. Electronically Signed: Woodrow Quinn MD at 18:56 EDT , Service support ,
== END ==
PROVIDERS: Family Provider Internal Medicine; PCP Internal Medicine
DX: S06.5X9A Traumatic subdural hemorrhage with loss of consciousness of unspecified duration, initial encounter (principal)
CPT/HCPCS: 70450; 72125

== ENCOUNTER → 2018-02-16 12:44 | Outpatient (CLI) | payer MEDICARE, OTHER, SELFPAY ==
--- NOTE | 2018-02-16 12:48 | CT_ITS ---
STUDY: CT BRAIN WITHOUT CONTRAST REASON FOR EXAM: Male, 77 years old. Subdural hematoma follow-up RADIATION DOSAGE (If Supplied By Facility): CTDIvol = ( 44.99 ) mGy, DLP = ( 762.36 ) mGycm TECHNIQUE: Transaxial CT imaging of the brain was performed without administration of intravenous contrast material. Sagittal and coronal reconstructed images are provided and reviewed. Individualized dose optimization techniques were used for this CT. COMPARISON: 01/10/2018 FINDINGS: Normal soft tissue structures. Normal calvarium. There is mild cerebral atrophy with widening of the extra-axial spaces and ventricular dilatation. There are areas of decreased attenuation within the white matter tracts of the supratentorial brain, consistent with microvascular disease changes. There are small punctate calcifications of the basal ganglia which are seen in the aging brain as a normal variant. Normal brainstem. There is mild cerebellar atrophy. There is no intracranial hemorrhage. There are no findings of an acute ischemic infarction. There has been resolution of the left subdural collection. Normal visualized paranasal sinuses. CT/Brain/Head without Contrast IMPRESSION: Resolved left subdural collection. Chronic involutional changes. No acute intracranial abnormality. Electronically Signed: Nathan Mark DO at 13:40 EDT Tel , Service support ,
== END ==
PROVIDERS: Family Provider Internal Medicine; PCP Internal Medicine
DX: S06.5X9A Traumatic subdural hemorrhage with loss of consciousness of unspecified duration, initial encounter (principal)
CPT/HCPCS: 70450

== ENCOUNTER 2018-03-24 07:02 | Outpatient (RCR) | payer SELFPAY ==
--- NOTE | 2018-01-12 15:30 | ED.VISSUMM ---
- ER Visit Summary Date of Service: 01/12/18 Chief Complaint: [Dizziness and fall] History of Present Illness: The patient is a 77 M [presents to the emergency department with complaint of a fall that occurred around 7 AM. Patient states that he got dizzy after getting out of bed and fell hitting his head on the floor. No loss of consciousness. Patient complains of pain in his neck and right hand. Patient complains of some mild shortness of breath. He denies any fever. He has had a little bit of a cough. Patient has history of coronary artery disease, COPD, hypertension, cholesterol.] Physical Examination: [Vital signs-blood pressure 123/70, temp 97 2, heart rate 102, respirations 28, pulse ox 92% on room air. HEENT-PERRLA, EOMI. Cranial nerves II through XII grossly intact. TMs clear. Mucous membranes moist. No adenopathy. Patient has a hematoma left frontal parietal. No bony step-offs noted. Patient has no significant tenderness of the C-spine however he does complain of pain with range of motion of the neck. No bony step-offs noted. Cardiovascular-regular rate and rhythm without murmur or ectopy Lungs-good aeration bilaterally. Patient has some wheezing and diminished breath sounds bilaterally. He has mild tachypnea but no accessory muscle use or retractions. Abdomen-normoactive bowel sounds, soft, nontender, no rebound or rigidity, no peritoneal signs. Extremities-intact ?4, normal range of motion, normal pulses. Patient does have some diffuse tenderness palpation over the right hand without obvious deformity. Test Results: [EKG obtained on arrival shows sinus rhythm with a ventricular rate of 90 bpm. CBC with differential was unremarkable. Chemistries unremarkable. Troponin was less than 0.015. Chest x-ray showed nothing acute. X-rays of the right hand showed no fractures. CT scan of the brain without contrast showed a left subdural hematoma. CT of the C-spine showed fracture of C2.] Emergency Department Course and Treatment: [Patient received DuoNeb aerosol in the emergency department as well as a milligram of Ativan. Patient was back boarded and C collared. Case was discussed with Dr. Oleary who accepted transfer of patient to [facility] for definitive care.] Treatment Plan: [Transferred to [facility]] Disposition: [Transfer] Impression: [Subdural hematoma status post fall COPD C2 fracture] This note was generated with [employer] software. It may contain incorrect words, spelling, and punctuation that were not noted in review of the chart prior to signing
--- NOTE | 2018-01-12 15:35 | ED.DCSUM_ITS ---
- ER Visit Summary Date of Service: 01/12/18 Chief Complaint: [Dizziness and fall] History of Present Illness: The patient is a 77 M [presents to the emergency department with complaint of a fall that occurred around 7 AM. Patient states that he got dizzy after getting out of bed and fell hitting his head on the floor. No loss of consciousness. Patient complains of pain in his neck and right hand. Patient complains of some mild shortness of breath. He denies any fever. He has had a little bit of a cough. Patient has history of coronary artery disease, COPD, hypertension, cholesterol.] Physical Examination: [Vital signs-blood pressure 123/70, temp 97 2, heart rate 102, respirations 28, pulse ox 92% on room air. HEENT-PERRLA, EOMI. Cranial nerves II through XII grossly intact. TMs clear. Mucous membranes moist. No adenopathy. Patient has a hematoma left frontal parietal. No bony step-offs noted. Patient has no significant tenderness of the C-spine however he does complain of pain with range of motion of the neck. No bony step-offs noted. Cardiovascular-regular rate and rhythm without murmur or ectopy Lungs-good aeration bilaterally. Patient has some wheezing and diminished breath sounds bilaterally. He has mild tachypnea but no accessory muscle use or retractions. Abdomen-normoactive bowel sounds, soft, nontender, no rebound or rigidity, no peritoneal signs. Extremities-intact ?4, normal range of motion, normal pulses. Patient does have some diffuse tenderness palpation over the right hand without obvious deformity. Test Results: [EKG obtained on arrival shows sinus rhythm with a ventricular rate of 90 bpm. CBC with differential was unremarkable. Chemistries unremarkable. Troponin was less than 0.015. Chest x-ray showed nothing acute. X-rays of the right hand showed no fractures. CT scan of the brain without contrast showed a left subdural hematoma. CT of the C-spine showed fracture of C2.] Emergency Department Course and Treatment: [Patient received DuoNeb aerosol in the emergency department as well as a milligram of Ativan. Patient was back boarded and C collared. Case was discussed with Dr. Oleary who accepted transfer of patient to [facility] for definitive care.] Treatment Plan: [Transferred to [facility]] Disposition: [Transfer] Impression: [Subdural hematoma status post fall COPD C2 fracture] This note was generated with [employer] software. It may contain incorrect words, spelling, and punctuation that were not noted in review of the chart prior to signing
== END 2018-04-16 23:59 ==
LOC: PR 07:02
PROVIDERS: Family Provider Internal Medicine; PCP Internal Medicine
DX: Z00.00 Encounter for general adult medical examination without abnormal findings (principal)